=== PATIENT | female | born 1935 | race Caucasian/White ===

== ENCOUNTER → 2016-04-17 | Outpatient (CLI) | payer BC ==
[~2016-04-17] MED LIST: ACET1TAB84 PO; CALC500C70 PO; FERR1TAB23 PO; GARC1TAB PO; MULT-190 PO; MULT-506 PO; NXM/40 PO; TRAM-10 PO; TRAV0.00 OPB; ZNT/150 PO
--- NOTE | 2016-04-18 09:14 | DIAGNOSTIC IMAGING REPORT ---
RIGHT SHOULDER MIN 2 VIEWS CLINICAL HISTORY: B/L SHOULDER PAIN Right pain COMPARISON: None. DISCUSSION: Considerable degenerative change glenohumeral and to a lesser extent acromioclavicular joint. Metallic anchors lateral aspect humeral head on a postoperative basis. No evidence for acute fracture or dislocation. There is no evidence for soft tissue swelling. IMPRESSION: Considerable degenerative to lesser extent postoperative change. No acute process. Electronically signed by: Malachi Perez M.D. 04/18/2016 9:13 AM
--- NOTE | 2016-04-18 09:15 | DIAGNOSTIC IMAGING REPORT ---
LEFT SHOULDER MIN 2 VIEWS CLINICAL HISTORY: B/L SHOULDER PAIN pain COMPARISON: None. DISCUSSION: Considerable degenerative change glenohumeral joint. Sclerosis and deterioration of the articular services. Moderate degenerative change acromioclavicular joint. There is no evidence for soft tissue swelling. IMPRESSION: Considerable degenerative change left shoulder. No acute bony abnormality. Electronically signed by: Malachi Perez M.D. 04/18/2016 9:14 AM
== END | disposition home or self-care (01) ==
LOC: C.RDSM 16:12
PROVIDERS: ATTEND Family Medicine
DX: M79.603 Pain in arm, unspecified (principal)

== ENCOUNTER → 2016-06-17 | Outpatient (CLI) | payer BC | END | disposition home or self-care (01) | LOC: C.RDSM 14:23 | PROVIDERS: ATTEND Physical Medicine & Rehabilitation Sports Medicine | DX: M25.561 Pain in right knee (principal); M17.12 Unilateral primary osteoarthritis, left knee ==

== ENCOUNTER → 2016-07-31 | Outpatient (CLI) | payer BC | END | disposition home or self-care (01) | LOC: C.MAMM 08:08 | PROVIDERS: ATTEND Nurse Practitioner Family | DX: M81.0 Age-related osteoporosis without current pathological fracture (principal); Z85.3 Personal history of malignant neoplasm of breast; M85.832 Other specified disorders of bone density and structure, left forearm; M85.851 Other specified disorders of bone density and structure, right thigh; M85.852 Other specified disorders of bone density and structure, left thigh ==

== ENCOUNTER → 2016-08-12 | Outpatient (CLI) | payer BC | END | disposition home or self-care (01) | LOC: C.RDSM 09:45 | PROVIDERS: ATTEND Physical Medicine & Rehabilitation Sports Medicine | DX: M19.011 Primary osteoarthritis, right shoulder (principal) ==

== ENCOUNTER → 2016-08-23 | Outpatient (CLI) | payer BC ==
--- NOTE | 2016-08-23 16:42 | MAMMOGRAPHY REPORT ---
BILATERAL DIGITAL SCREENING MAMMOGRAM TOMOSYNTHESIS WITH CAD: 08/23/2016 CLINICAL HISTORY: Routine screening. Patient has no complaints. TECHNIQUE: Breast tomosynthesis in addition to standard 2D mammography was performed. Current study was also evaluated with a Computer Aided Detection (CAD) system. COMPARISON: Comparison is made to exams dated: 08/14/2015 mammogram, 08/08/2014 mammogram, 08/05/2013 m ammogram, 08/04/2012 mammogram, 01/15/2012 mammogram, and 04/10/2011 mammogram - [facility]. BREAST COMPOSITION: There are scattered areas of fibroglandular density in both breasts. FINDINGS: No suspicious masses, calcifications, or areas of architectural distortion are noted in e ither breast. There has been no significant interval change compared to prior exams. Postsurgical c hanges are again noted in the right upper outer quadrant from prior lumpectomy, including stable den sity, architectural distortion, and surgical clips at the lumpectomy bed. Benign coarse dystrophic and sutural calcifications are noted at the lumpectomy bed. A linear scar marker denotes a scar on the right breast. IMPRESSION: ACR BI-RADS CATEGORY 2: BENIGN There is no mammographic evidence of malignancy. A 1 year screening mammogram is recommended. The p atient will receive written notification of the results. Approximately 10% of breast cancers are not detected with mammography. A negative mammographic repor t should not delay biopsy if a clinically suggestive mass is present. Annie Umana M.D. /:08/23/2016 15:24:11 Clipper Operator: Kristine Alba RT(R)(Ángel)(ROBERTO), [facility] letter sent: Normal 1/2 BI-RADS Code: ACR BI-RADS Category 2: Benign
== END | disposition home or self-care (01) ==
LOC: C.MAMM 14:43
PROVIDERS: ATTEND Internal Medicine Hematology & Oncology
DX: Z12.31 Encounter for screening mammogram for malignant neoplasm of breast (principal)

== ENCOUNTER → 2016-09-25 | Outpatient (CLI) | payer BC ==
--- NOTE | 2016-09-25 11:06 | DIAGNOSTIC IMAGING REPORT ---
BILATERAL LOWER EXTREMITY VENOUS DOPPLER CLINICAL HISTORY: Bilateral lower extremity edema. COMPARISON STUDY: Bilateral lower extremity venous Doppler June 19, 2010. TECHNIQUE: Sonography of the deep venous system of the bilateral lower extremities was performed. Compression and augmentation were evaluated. FINDINGS: The common femoral, superficial femoral and popliteal veins were compressible. Augmentation was normal. Flow was shown within the deep calf vessels. Note was made of a 5.8 x 1.9 x 1.3 cm left popliteal cyst. IMPRESSION: 1. No evidence of deep venous thrombus within the bilateral lower extremities. 2. 5.8 x 1.9 x 1.3 cm left popliteal cyst. Electronically signed by: Calos Panda M.D. 09/25/2016 11:05 AM Dictated Date/Time: 09/25/2016 11:01 AM
[2016-09-25 13:47] LABS: BASO % 0.4 %; BASO ABS # 0.02 K/uL (0-0.2); COMPLETE YES; EOS % 1.5 %; HEMATOCRIT 36.4 % (37-47); IG% 0.2 %; LYMPH % 21.5 %; LYMPH ABS # 1.01 K/uL (1.2-3.4); MEAN CELL VOLUME 91.9 fL (80-100); MEAN CORPUSCULAR HEMOGLOBIN 27.5 pg (25-34); MEAN CORPUSCULAR HGB CONC 29.9 g/dl (32-36); MEAN PLATELET VOLUME 9.4 fL (7.4-10.4); MONO % 8.5 %; NEUT % 67.9 %; PLATELET COUNT 285 K/uL (130-400); RED BLOOD COUNT 3.96 M/uL (4.2-5.4); WHITE BLOOD COUNT 4.69 K/uL (4.8-10.8)
[2016-09-25 14:37] LABS: ALB/GLOB RATIO 1.2 (0.9-2); ALKALINE PHOSPHATASE 94 U/L (45-117); ALT/SGPT 27 U/L (12-78); AST/SGOT 15 U/L (15-37); BLOOD UREA NITROGEN 20 mg/dl (7-18); BUN/CREATININE RATIO 24.8 (10-20); CALCIUM 8.6 mg/dl (8.5-10.1); CARBON DIOXIDE 24 mmol/L (21-32); CHLORIDE 107 mmol/L (98-107); GLUCOSE 105 mg/dl (70-99); POTASSIUM 4.1 mmol/L (3.5-5.1); SODIUM 142 mmol/L (136-145)
[2016-09-25 16:39] LABS: URINE PROTIEN/CREAT RATIO 0.2 (0-0.2); URINE TOTAL PROTEIN 13.6 mg/dl (0-11.9)
== END | disposition home or self-care (01) ==
LOC: C.ULTRBC 09:42
PROVIDERS: ATTEND Internal Medicine Geriatric Medicine
DX: R60.0 Localized edema (principal); G62.9 Polyneuropathy, unspecified; K92.2 Gastrointestinal hemorrhage, unspecified; K63.9 Disease of intestine, unspecified; M71.22 Synovial cyst of popliteal space [Baker], left knee

== ENCOUNTER → 2016-10-03 | Outpatient (CLI) | payer BC ==
--- NOTE | 2016-10-03 08:50 | DIAGNOSTIC IMAGING REPORT ---
ABDOMINAL ULTRASOUND COMPLETE HISTORY: R60.0 Bilateral edema of lower [id number]. COMPARISON: Abdomen and pelvis CT 02/10/2014. FINDINGS: Pancreas: The pancreatic tail is obscured by overlying bowel gas. The remaining portions of the pancreas are within normal limits. Liver: The liver is echogenic consistent with fatty change. Gallbladder: No gallbladder wall thickening. No gallstones. There are 2 polyps within the gallbladder measuring 9 mm and 4 mm. CBD: 7 mm. This is within normal limits given the patient's age Kidneys: No hydronephrosis. Lower poles are slightly 0 by overlying bowel gas. Bilateral renal cysts with the largest in the lower pole the left kidney measuring 3.2 cm. Spleen: Normal in size. Aorta: Proximal aorta is normal in caliber. The mid to distal aorta obscured by overlying bowel gas.. IVC: Patent. IMPRESSION: 1. No gallbladder wall thickening. No gallstones. There are 2 polyps within the gallbladder with the largest measuring 9 mm. 2. Bilateral renal cysts. 3. Mild hepatic steatosis. Electronically signed by: Steve Orlando M.D. 10/03/2016 8:49 AM Dictated Date/Time: 10/03/2016 8:45 AM
== END | disposition home or self-care (01) ==
LOC: C.ULTRBC 08:08
PROVIDERS: ATTEND Internal Medicine Geriatric Medicine
DX: R60.0 Localized edema (principal)

== ENCOUNTER → 2016-10-04 | Outpatient (CLI) | payer BC ==
[2016-10-04 14:10] LABS: BLOOD UREA NITROGEN 23 mg/dl (7-18); BUN/CREATININE RATIO 31.9 (10-20); CALCIUM 9.9 mg/dl (8.5-10.1); CARBON DIOXIDE 29 mmol/L (21-32); CHLORIDE 106 mmol/L (98-107); CREATININE 0.73 mg/dl (0.60-1.20); GLUCOSE 96 mg/dl (70-99); SODIUM 142 mmol/L (136-145)
== END | disposition home or self-care (01) ==
LOC: C.LABBC 10:36
PROVIDERS: ATTEND Internal Medicine Geriatric Medicine
DX: R60.0 Localized edema (principal)

== ENCOUNTER → 2016-11-19 | Outpatient (CLI) | payer BC ==
[2016-11-19 17:13] LABS: BASO % 0.3 %; BASO ABS # 0.02 K/uL (0-0.2); COMPLETE YES; HEMATOCRIT 39.3 % (37-47); IG% 0.2 %; LYMPH % 24.7 %; LYMPH ABS # 1.41 K/uL (1.2-3.4); MEAN CELL VOLUME 92.9 fL (80-100); MEAN CORPUSCULAR HEMOGLOBIN 29.6 pg (25-34); MEAN CORPUSCULAR HGB CONC 31.8 g/dl (32-36); MEAN PLATELET VOLUME 9.7 fL (7.4-10.4); MONO % 6.3 %; NEUT % 67.5 %; PLATELET COUNT 276 K/uL (130-400); RED BLOOD COUNT 4.23 M/uL (4.2-5.4); WHITE BLOOD COUNT 5.72 K/uL (4.8-10.8)
== END | disposition home or self-care (01) ==
LOC: C.LABBC 14:48
PROVIDERS: ATTEND Internal Medicine Geriatric Medicine
DX: D64.9 Anemia, unspecified (principal)

== ENCOUNTER → 2017-05-15 | Outpatient (CLI) | payer BC ==
[2017-05-15 17:32] LABS: BASO % 0.3 %; BASO ABS # 0.02 K/uL (0-0.2); EOS % 0.9 %; EOS ABS # 0.05 K/uL (0-0.5); HEMOGLOBIN 13.1 g/dL (12.0-16.0); IG# 0.02 K/uL (0.00-0.02); LYMPH % 23.6 %; LYMPH ABS # 1.35 K/uL (1.2-3.4); MEAN CELL VOLUME 91.1 fL (80-100); MEAN CORPUSCULAR HEMOGLOBIN 29.8 pg (25-34); MEAN CORPUSCULAR HGB CONC 32.8 g/dl (32-36); MEAN PLATELET VOLUME 9.6 fL (7.4-10.4); MONO % 5.9 %; MONO ABS # 0.34 K/uL (0.11-0.59); NEUT ABS # 3.94 K/uL (1.4-6.5); PLATELET COUNT 287 K/uL (130-400); RED CELL DISTRIBUTION WIDTH CV 13.7 % (11.5-14.5); RED CELL DISTRIBUTION WIDTH SD 45.4 fL (36.4-46.3); WHITE BLOOD COUNT 5.72 K/uL (4.8-10.8)
[2017-05-15 17:38] LABS: ALBUMIN 3.6 gm/dl (3.4-5.0); ALT/SGPT 28 U/L (12-78); AST/SGOT 13 U/L (15-37); BLOOD UREA NITROGEN 20 mg/dl (7-18); CALCIUM 8.8 mg/dl (8.5-10.1); CARBON DIOXIDE 25 mmol/L (21-32); CREATININE 0.72 mg/dl (0.60-1.20); GLUCOSE 125 mg/dl (70-99); POTASSIUM 3.8 mmol/L (3.5-5.1); SODIUM 139 mmol/L (136-145)
[2017-05-15 17:49] LABS: ALKALINE PHOSPHATASE 117 U/L (45-117); TOTAL PROTEIN 6.6 gm/dl (6.4-8.2)
== END | disposition home or self-care (01) ==
LOC: C.LABBC 14:54
PROVIDERS: ATTEND Internal Medicine Geriatric Medicine
DX: M81.0 Age-related osteoporosis without current pathological fracture (principal); K22.70 Barrett's esophagus without dysplasia; D64.9 Anemia, unspecified; R73.9 Hyperglycemia, unspecified; G62.9 Polyneuropathy, unspecified; I87.2 Venous insufficiency (chronic) (peripheral); K76.0 Fatty (change of) liver, not elsewhere classified

== ENCOUNTER → 2017-08-04 | Outpatient (CLI) | payer BC | END | disposition home or self-care (01) | LOC: C.RDSM 15:02 | PROVIDERS: ATTEND Physical Medicine & Rehabilitation Sports Medicine | DX: M17.12 Unilateral primary osteoarthritis, left knee (principal); Z96.651 Presence of right artificial knee joint ==

== ENCOUNTER → 2017-08-25 | Outpatient (CLI) | payer BC ==
--- NOTE | 2017-08-26 15:04 | MAMMOGRAPHY REPORT ---
BILATERAL DIGITAL SCREENING MAMMOGRAM TOMOSYNTHESIS WITH CAD: 08/25/2017 CLINICAL HISTORY: Routine screening. Patient has no complaints. TECHNIQUE: Breast tomosynthesis in addition to standard 2D mammography was performed. Current study was also evaluated with a Computer Aided Detection (CAD) system. COMPARISON: Comparison is made to exams dated: 08/23/2016 mammogram, 08/14/2015 mammogram, 08/08/2014 ma mmogram, 08/05/2013 mammogram, 08/04/2012 mammogram, and 01/15/2012 mammogram - [facility]. BREAST COMPOSITION: There are scattered areas of fibroglandular density in both breasts. FINDINGS: There is expected architectural distortion in the upper outer middle to posterior right giorgio ast, with associated surgical clips and sutural calcification at the site of prior lumpectomy. A nayana ear scar marker overlies the right upper outer breast. There are mild vascular calcifications bilate rally. No new suspicious mass, architectural distortion or cluster of microcalcifications is seen. IMPRESSION: ACR BI-RADS CATEGORY 1: NEGATIVE There is no mammographic evidence of malignancy. A 1 year screening mammogram is recommended. The pa tient will receive written notification of the results. Approximately 10% of breast cancers are not detected with mammography. A negative mammographic report should not delay biopsy if a clinically suggestive mass is present. Catherine Alvarez M.D. ay/:08/25/2017 16:47:57 Shipping Receiving Clerk: Kristine JAMES(Rupert)(Ángel)(BD), [facility] letter sent: Normal 1/2 BI-RADS Code: ACR BI-RADS Category 1: Negative
== END | disposition home or self-care (01) ==
LOC: C.MAMM 14:50
PROVIDERS: ATTEND Internal Medicine Hematology & Oncology
DX: Z12.31 Encounter for screening mammogram for malignant neoplasm of breast (principal)

== ENCOUNTER 2018-06-02 05:09 | Inpatient (IN) ==
--- NOTE | 2018-05-08 16:14 | PAT Medication Instructions ---
Medication Instructions Date of Service May 08, 2018 Home Medications acetaminophen [Acetaminophen] 500 mg PO TID [Simbrinza] 1 drp OPHTHALMIC (EYE) BID calcium carbonate-vitamin D3 2 tab PO BID cholecalciferol (vitamin D3) 1,000 unit PO QPM denosumab [Prolia] 1 dose SUBCUT Q6M esomeprazole magnesium 40 mg PO QAM furosemide 40 mg PO QDL [Centrum Silver] 1 tab PO QPM peg 400-propylene glycol [Systane] 1 drp OPHTHALMIC (EYE) BID ranitidine HCl 300 mg PO HS travoprost [Travatan Z] 1 drp OPHTHALMIC (EYE) PM [PreserVision AREDS-2] 1 tab PO HS Continue as directed denosumab [Prolia] 1 dose SUBCUT Q6M DO NOT take the morning of surgery calcium carbonate-vitamin D3 2 tab PO BID furosemide 40 mg PO QDL Take morning of surgery With a small sip of water, OTHERWISE NOTHING TO EAT OR DRINK AFTER MIDNIGHT: acetaminophen [Acetaminophen] 500 mg PO TID (if needed, may be taken up to four hours before surgery) [Simbrinza] 1 drp OPHTHALMIC (EYE) BID esomeprazole magnesium 40 mg PO QAM peg 400-propylene glycol [Systane] 1 drp OPHTHALMIC (EYE) BID Take evening before surgery acetaminophen [Acetaminophen] 500 mg PO TID [Simbrinza] 1 drp OPHTHALMIC (EYE) BID calcium carbonate-vitamin D3 2 tab PO BID cholecalciferol (vitamin D3) 1,000 unit PO QPM [Centrum Silver] 1 tab PO QPM peg 400-propylene glycol [Systane] 1 drp OPHTHALMIC (EYE) BID ranitidine HCl 300 mg PO HS travoprost [Travatan Z] 1 drp OPHTHALMIC (EYE) PM [PreserVision AREDS-2] 1 tab PO HS Other Notes If you have any questions please call us at [phone] or [phone] or [phone] or [phone]
--- NOTE | 2018-05-11 13:05 | Anesthesiology Consultation ---
Date of Service May 11, 2018 Assessment & Plan (1) Encounter for pre-operative examination: Plan: PCP clearance 04/09/2018: "Medically stable." Chart Review Chart Review: Acceptable Risk for Surgery and Patient seen in Pre Admission Testing Teaching & Discussion Instructed NPO after midnight before surgery, except medications with 15 cc of water. Medication instructions provided according to the PAT guidelines. History Surgery Operation Date: 06/02/18 07:00 Proposed Procedures p Right Total Shoulder Arthroplasty versus Cuff Tear Arthropathy - Lex Quintanilla MD Height/Weight Height: 5 ft 2 in Weight: 76.8 kg Allergies Allergy/AdvReac Type Severity Reaction Status Date / Time hydrocodone Allergy Mild RASH Verified 02/20/15 11:45 oxycodone Allergy Mild Itchy Verified 04/22/14 15:38 celecoxib Allergy Unknown GI Bleed Verified 05/05/18 12:27 aspirin AdvReac Intermediate GI BLEED Verified 02/20/15 08:40 NSAIDS (Non-Steroidal AdvReac Intermediate GI BLEED Verified 02/17/14 08:40 Anti-Inflamma Medications Home Medications Medication Instructions Recorded Confirmed Last Taken acetaminophen [Acetaminophen Extra 500 mg PO TID 05/05/18 05/05/18 Unknown Strength] brinzolamide-brimonidine 1 drp OPHTHALMIC (EYE) BID 05/05/18 05/05/18 Unknown [Simbrinza] calcium carbonate-vitamin D3 2 tab PO BID 05/05/18 05/05/18 Unknown [Calcium 500 + D] cholecalciferol (vitamin D3) 1,000 unit PO QPM 05/05/18 05/05/18 Unknown [Vitamin D3] denosumab [Prolia] 1 dose SUBCUT Q6M 05/05/18 05/05/18 Unknown esomeprazole magnesium 40 mg PO QAM 05/05/18 05/05/18 Unknown furosemide 40 mg PO QDL 05/05/18 05/05/18 Unknown aynfxoqn-inu-EU-lycopen-lutein 1 tab PO QPM 05/05/18 05/05/18 Unknown [Centrum Silver] peg 400-propylene glycol [Systane 1 drp OPHTHALMIC (EYE) BID 05/05/18 05/05/18 Unknown Ultra] ranitidine HCl 300 mg PO HS 05/05/18 05/05/18 Unknown travoprost [Travatan Z] 1 drp OPHTHALMIC (EYE) PM 05/05/18 05/05/18 Unknown vit C,A-Aw-htibb-lutein-zeaxan 1 tab PO HS 05/05/18 05/05/18 Unknown [PreserVision AREDS-2] Past Medical History Medical History Barretts esophagus Blood clot of left ear In her 20's. 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 Fluid retention GERD (gastroesophageal reflux disease) Glaucoma History of GI bleed Remote hx, possibly d/t nsaids History of anemia History of gastric polyp removed Hx of breast cancer right - 2010, s/p partial mastectomy Osteoarthritis Osteoporosis Peripheral neuropathy burning on top of both feet Venous insufficiency Past Surgical History Surgical History H/O repair of right rotator cuff History of esophagogastroduodenoscopy (EGD) History of knee replacement procedure of right knee Post op developed pseudomonis - HAd to redo knee Hx of bilateral cataract extraction Hx of colonoscopy Hx of partial mastectomy right Hx of tonsillectomy Past Anesthesia History No Hx of Anesthesia Complications and No Family Hx of Anesthesia Complications History of PONV No Motion Sickness Screening History of Motion Sickness: No Social History Smoking Status: Never smoker Do You Dip or Chew Tobacco: No Hx Alcohol Use: Yes Alcohol type: wine alcohol intake frequency: a few times a month Hx Substance Use: No Exercise / Class Metabolic Activity II 4-5 Yardwork/Stairs/Walk up hill (Goes slowly 2/2 knee pain, but does do stairs daily without CP or SOB) Review of Systems Pt denies any recent chest pain, shortness of breath, palpitations, fever or URI. Mild chronic cough 2/2 post nasal drip Physical Exam Vital Signs BP: 135/87 (pt reports much lower at home, she was late to her appt today and anxious as a result) P: 74bpm SPO2: 98% RA T: 97.9 F R: 16 ENMT Mouth: + dental bridge and + dental restorations (few implants); no chipped teeth and no loose teeth Thyromental Distance: > or= 3.5 Finger Breadths (4+) Mallampati Class: III Neck normal visual inspection; neck extension not limited Respiratory normal respiratory effort Auscultation: lungs clear to auscultation bilaterally Cardiovascular Rate/Rhythm: regular rate and regular rhythm Heart Sounds: + murmur (I/ systolic) Vessels: no carotid bruit Extremities: + edema (B/L 1+ non-pitting, pt states at baseline) Testing Electrocardiogram Date: 05/11/18 Findings: + NSR @ (70) Chest X-Ray Date: 04/09/18 Findings: + NAD Large hiatal hernia. Moderate cardiomegaly. Echocardiogram Date: 04/22/18 EF: 60-65% LV wall motion, ventricular size and systolic function are normal. There is moderate cLVH. Grade I diastolic dysfunction. No RWMA. The LA is severely dilated. Sclerotic AV without significant stenosis. There is moderate mitral annular calcification with mild MR. Normal estimated RVSP. Laboratory Results 05/11/18 13:16 05/11/18 13:16 Blood Type A Positive 05/11/18 13:16 Antibody Screen NEGATIVE 05/11/18 13:16 PT 10.0 Seconds (9.0-12.0) 05/11/18 13:16 INR 1.0 (0.9-1.1) 05/11/18 13:16 APTT 24.5 Seconds (21.0-31.0) 05/11/18 13:16 Urine Color Yellow 05/11/18 Unknown Urine Appearance Clear (Clear) 05/11/18 Unknown Urine pH 7.5 (4.5-7.5) 05/11/18 Unknown Ur Specific Waves 1.026 (1.000-1.030) 05/11/18 Unknown Urine Protein Negative (Negative) 05/11/18 Unknown Urine Glucose (UA) Negative (Negative) 05/11/18 Unknown Urine Ketones Negative (Negative) 05/11/18 Unknown Urine Nitrite Negative (Negative) 05/11/18 Unknown Ur Leukocyte Esterase Negative (Negative) 05/11/18 Unknown 05/11/18 Unknown Urine Culture - Final Urine,Clean Catch Three types of organisms present, all moderate counts. Repeat collection recommended. No further identifications or sensitivities to follow.
[2018-05-11 14:02] LABS: Basophils # (auto) 0.01 K/uL (0-0.2); Basophils % (auto) 0.2 %; Eosinophils # (auto) 0.05 K/uL (0-0.5); Eosinophils % (auto) 1.1 %; Hematocrit (blood only) 38.6 % (37-47); Hemoglobin 12.1 g/dL (12.0-16.0); Immature Granulocytes # (auto) 0.01 K/uL (0.00-0.02); Immature Granulocytes % (auto) 0.2 %; Lymphocytes # (auto) 1.07 K/uL (1.2-3.4); Lymphocytes % (auto) 23.4 %; Mean Corpuscular Hgb Conc 31.3 g/dL (32-36); Mean Corpuscular Volume 90.6 fL (80-100); Mean Platelet Volume 9.5 fL (7.4-10.4); Monocytes # (auto) 0.42 K/uL (0.11-0.59); Monocytes % (auto) 9.2 %; Neutrophils # (auto) 3.01 K/uL (1.4-6.5); Neutrophils % (auto) 65.9 %; Platelet Count 247 K/uL (130-400); RDW Standard Deviation 46.4 fL (36.4-46.3); Red Blood Count 4.26 M/uL (4.2-5.4); White Blood Count 4.57 K/uL (4.8-10.8)
[2018-05-11 14:04] LABS: Appearance Urine Clear (Clear); Bilirubin Urine Negative (Negative); Color Urine Yellow; Glucose Urine UA Negative (Negative); Ketones Urine Negative (Negative); Leukocyte Esterase Urine Negative (Negative); Nitrite Urine Negative (Negative); Protein Urine Negative (Negative); Specific Gravity Urine 1.026 (1.000-1.030); Urobilinogen Urine Negative (Negative); pH Urine 7.5 (4.5-7.5)
[2018-05-11 14:12] LABS: Partial Thromboplastin Ratio 0.9; Partial Thromboplastin Time 24.5 Seconds (21.0-31.0)
[2018-05-11 14:47] LABS: Calcium 8.9 mg/dl (8.5-10.1); Creatinine Clr Calc Pharmacy 71.8 ml/min; Est GFR (African American) 99.4; Est GFR (Non-African American) 85.7; Potassium 3.9 mmol/L (3.5-5.1)
[2018-06-02] MEDS ORDERED: CEFAZOLIN 2000MG 2,000 MG/15 ML SYR IV SCH (06:00)
[2018-06-02] MEDS ORDERED: LR 15ML/HR IV SCH (06:00)
[2018-06-02] MEDS: LR 500ML BOLUS, THEN 15ML/HR IV SCH ×3 (06:06→19:12)
--- NOTE | 2018-06-02 06:25 | History & Physical Bridge Note ---
Date of Service June 02, 2018 History & Physical Bridge Note I have examined the patient, reviewed the History & Physical and in the interval since the performance of the History & Physical I have noted the following changes of clinical significance:consent obtained. no changes noted
[2018-06-02] MEDS ORDERED: ROPIVACAINE 0.5% 5 MG/ML 30 ML VIAL ONE (06:27)
[2018-06-02] MEDS ORDERED: BACITRACIN INJ 50,000 UNIT VIAL ONE (06:28)
[2018-06-02] MEDS ORDERED: THROMBIN FOR SOLN 20000 UNIT KIT ONE (06:28)
[2018-06-02] MEDS ORDERED: MIDAZOLAM HCL 1 MG/ML 2ML VIAL ONE (06:37)
[2018-06-02] MEDS ORDERED: fentaNYL citrate 100 MCG/2 ML VIAL ONE (06:37)
[2018-06-02] MEDS ORDERED: PROPOFOL IV EMULSION 10 MG/ML 20 ML VIAL IV ONE (07:16)
[2018-06-02] MEDS ORDERED: LIDOCAINE HCL 2% 2 ML VIAL/AMP(20MG/ML) INFIL ONE (07:16)
[2018-06-02] MEDS ORDERED: ePHEDrine sulfate 50 MG/ML SYR ONE (07:17)
[2018-06-02] MEDS ORDERED: DEXAMETHASONE SOD INJ 4 MG/ML VIAL ONE (07:17)
[2018-06-02] MEDS ORDERED: ROCURONIUM BROMIDE 10 MG/ML 5 ML VIAL ONE (07:17)
[2018-06-02] MEDS ORDERED: NEOSTIGMINE METHYLSULFATE 5 MG/5 ML SYR ONE (07:38)
[2018-06-02] MEDS ORDERED: GLYCOPYRROLATE 0.2 MG/ML VIAL ONE (07:38)
[2018-06-02] MEDS ORDERED: ATROPINE SULFATE 0.1 MG/ML 10ML SYR IV PRN (08:55)
[2018-06-02] MEDS ORDERED: NALOXONE HCL 0.4 MG/1 ML VIAL/CARP IV PRN ×2 (08:55→10:09)
[2018-06-02] MEDS ORDERED: LABETALOL HCL IV 5 MG/ML 20ML IV PRN (08:55)
[2018-06-02] MEDS ORDERED: ONDANSETRON INJ 2 MG/ML 2 ML VIAL IV PRN ×2 (08:55→10:09)
[2018-06-02] MEDS ORDERED: PROMETHAZINE HCL 12.5 MG in SODIUM CHLORIDE 0.9% 50 ML IV PRN (08:55)
[2018-06-02] MEDS ORDERED: FLUMAZENIL 0.1 MG/1 ML 10 ML VIAL IV PRN (08:55)
[2018-06-02] MEDS ORDERED: HYDROmorphone INJ 1 MG/ML SYRINGE IV PRN (08:55)
[2018-06-02] MEDS ORDERED: ePHEDrine sulfate 50 MG/ML AMP IV PRN (08:55)
--- NOTE | 2018-06-02 08:58 | Post Operative Brief Note ---
Immediate Post Op Note v1 Date of Surgery June 02, 2018 Pre & Post Diagnosis Operation Date: 06/02/18 07:00 Pre-Op Diagnosis: Right Shoulder Degenerative Joint Disease Post-Op Diagnosis: Right Shoulder Degenerative Joint Disease Procedure Operation Date: 06/02/18 07:00 Actual Procedures p Right Total Shoulder Arthroplasty (Cemented)(Right) - Lex Quintanilla MD Surgeon Lex Quintanilla MD Clinical Outcomes [facility] Estimated Blood Loss 150 Findings Consistent with Post-Op Diagnosis
--- NOTE | 2018-06-02 09:18 | Operative Report ---
Post Operative Report Pre & Post Diagnosis Operation Date: 06/02/18 07:00 Pre-Op Diagnosis: Right Shoulder Degenerative Joint Disease Post-Op Diagnosis: Right Shoulder Degenerative Joint Disease Procedure Operation Date: 06/02/18 07:00 Actual Procedures p Right Total Shoulder Arthroplasty (Cemented)(Right) - Lex Quintanilla MD Surgeon EVELIN Quintanilla MD Or[employer] Stitcher adriana Estimated Blood Loss 150 Findings Consistent with Post-Op Diagnosis Specimens see operative report Drains none Complications none Disposition Accompanied Patient To Recovery: Yes Disposition: Recovery Room Indications This 82-year-old white female presented to the first with complaints of intractable right shoulder pain. She had tried conservative care measures without improvement. She elected to proceed with surgical intervention after being educated about potential risks and outcomes. Preoperative imaging was obtained. Medical clearance was obtained. Description of Procedure Patient was administered a regional block and then taken to the operating room where she was given general anesthesia. She was prepped and draped in the usual sterile fashion. Please see Dr. Quintanilla's operative report for specifics of the procedure. I was present for the entire case from initial patient positioning through final wound closure. Assistance was provided in tissue retraction, hemostasis, trial implant placement, final implant placement , and final wound closure. Patient was taken to the recovery room in satisfactory condition. I attest to the content of the Intraoperative Record and any orders documented therein. Any exceptions are noted below.
--- NOTE | 2018-06-02 09:47 | Anesthesiology Progress Note ---
Date of Service June 02, 2018 Anesthesia Post Procedure Vital Signs Vital Signs: Temp Pulse Pulse Resp BP Pulse Ox 06/02/18 09:35 76 20 129/68 93 06/02/18 09:25 73 26 H 129/69 93 06/02/18 09:15 76 26 H 131/71 91 06/02/18 09:05 36.2 C L 88 20 128/81 93 06/02/18 06:08 36.5 C 74 20 177/91 H 96 Pain Intensity Right Scrotal: Pain Intensity: 3 Notes Mental Status: alert / awake / arousable Patient Amnestic to Procedure: Yes Nausea / Vomiting: adequately controlled Pain: adequately controlled Airway Patency, RR, SpO2: stable & adequate BP & HR: stable & adequate Hydration State: stable & adequate Anesthetic Complications: no major complications apparent
--- NOTE | 2018-06-02 09:54 | Operative Report ---
DATE OF OPERATION: 06/02/2018 SURGEON: Dr. Quintanilla. DISTRIBUTION OPERATIONS MANAGER: Dr. Trujillo. No resident or fellow available. PREOPERATIVE DIAGNOSIS: Osteoarthritis, right shoulder. POSTOPERATIVE DIAGNOSIS: Osteoarthritis, right shoulder. OPERATION PERFORMED: Hybrid total shoulder replacement with cemented glenoid and porous coated humeral stem. PERIOPERATIVE SITUATION: Medically cleared female with intractable shoulder pain who has had a history remotely of rotator cuff repair with 2 metal suture anchors in there. It was discussed that they may be left in or removed. Risks and benefits described. She was also noted to me I get a CTA head rather than a total shoulder based on the condition of rotator cuff. DESCRIPTION OF PROCEDURE: The patient was appropriately identified, site verified, consent verified. Antibiotics confirmed as being given. The right shoulder was examined revealing external rotation with the arm at 90 degrees to about 20 degrees, forward flexion about 70 degrees, abduction about the same. She was then placed in a semi-beach chair position. Right upper extremity prepped and draped in the usual routine fashion. A deltopectoral incision was then made, full thickness flaps raised. The saphenous vein was released and coagulated proximally and retracted. It was very scarred and incorporated into the old incisions. The retractors were then placed. Conjoined tendon was then identified and this clavipectoral fascia incised and everything retracted. Subscapularis was then tagged and released off the bone. The biceps was tenotomized. The shoulder was then dislocated. The humeral head was resected and then repeated. There was good exposure of the glenoid. The remaining labrum was removed. The rotator cuff appeared to be intact enough to do a total shoulder, so the centering pin was placed, centering hole made. Appropriate reaming and burring carried out and then a 44 glenoid positioned well and cemented into position. After 14 minutes, the wound was irrigated. It should be mentioned that thrombin was placed in the glenoid keeled bed prior to cementing. Once the glenoid was cured and everything was secured and looked good, the humeral head was delivered in the wound and serial broaching carried up to a size 8 and a size 8 stem with a 15 head fit best. It was 44 x 15. Two drill holes were then made, 2 sutures #2 FiberWire placed through. On the lesser tuberosity region, additional Vicryl suture was placed in the supraspinatus at the rotator interval. The stem was then placed. The sutures pulled around it and then the humerus impacted into position. All slack removed from the subscapularis stitches. The subscapularis was then placed and repaired using the sutures and the additional Vicryl stitch. The biceps was left alone. It did not retract at all. The wound was irrigated and closed with #1 Vicryl, 2-0 Vicryl and stainless steel clips. Estimated blood loss was 150 mL. No DVT prophylaxis. Bone pathology pending. SUMMARY OF IMPLANTS: Size 44 keeled glenoid, 8 Porocoat stem 44 x 15 head. It should be mentioned that prior to selecting the final implants between 15 and 18 head, the shoulder was examined and we selected the 15 based on numeral positioning and subluxate ability posteriorly. I attest to the content of the Intraoperative Record and any orders documented therein. Any exceptions are noted below. CORTNEYD
--- NOTE | 2018-06-02 09:59 | XRay Report ---
XR shoulder RT min 2V routine CLINICAL HISTORY: Post shoulder surgery COMPARISON: 05/11/2018 DISCUSSION: There are postsurgical changes of a total right shoulder arthroplasty. Overlying skin sta ples are evident. No small bowel gas in the soft tissues consistent with recent surgery. There are no acute fractures. There is no dislocation. The heart appears enlarged. There is aortic tortuosity/ect shikha. There is possible mild pulmonary vascular congestion. There is a suspected trace right pleural effusion IMPRESSION: Postsurgical changes of a total right shoulder arthroplasty Electronically signed by: Kamari Chua M.D. 06/02/2018 9:58 AM
[2018-06-02] MEDS ORDERED: MAGNESIUM HYDROXIDE SUSP 30 ML UDC PO PRN (10:09)
[2018-06-02] MEDS ORDERED: METOCLOPRAMIDE HCL INJ 5 MG/ML 2 ML VIAL IV PRN (10:09)
[2018-06-02] MEDS ORDERED: SODIUM CHLORIDE 0.9% 1000ML 1,000 ML IV SCH (10:09)
[2018-06-02] MEDS ORDERED: HYDROmorphone INJ 0.5 MG/0.5 ML SYR IV PRN (10:09)
[2018-06-02] MEDS ORDERED: DiphenhydrAMINE HCL 50 MG/ML VIAL IV PRN (10:09)
[2018-06-02] MEDS ORDERED: ALUMINUM/MAGNESIUM SUSP 30 ML UDC PO PRN (10:09)
[2018-06-02] MEDS ORDERED: BISACODYL 10 MG SUPP PR PRN (10:09)
[2018-06-02] MEDS ORDERED: FUROSEMIDE 40 MG TAB PO SCH (11:30)
[2018-06-02] MEDS: ACETAMINOPHEN 500 MG TAB PO SCH ×2 (14:39→21:09)
[2018-06-02] MEDS ORDERED: COUGH DROP (SUGAR FREE) LOZ 24 LOZ/1 BOX BUCCAL PRN (14:56)
[2018-06-02] MEDS: CEFAZOLIN 2000MG 2,000 MG/15 ML SYR IV SCH ×2 (15:56→23:30)
--- NOTE | 2018-06-02 19:23 | Progress Note ---
DATE: 06/02/2018 Postop check status post right total shoulder replacement. The patient is sitting up in the chair comfortably. She denies chest pain, shortness of breath, fever, chills, nausea, vomiting or headache. Vital signs are stable. She is afebrile. Neurovascular check is limited by block but has good motor function in the hand and wrist and has trace elbow function and trace shoulder function. Sensory; grossly axillary nerve sensory pattern is good. Postop x-rays look excellent. ASSESSMENT: Doing well. Continue with postoperative care pathway. She is eating and drinking. We will discontinue IV fluid and mobilize. Keep arm in a sling, shoulder immobilizer. Follow up in the morning with potential discharge and outpatient therapy to start tomorrow. 30 degrees of abduction, 30 degrees of forward flexion and belly to 0 degrees of external rotation.
[2018-06-02] MEDS ORDERED: ARTIFICIAL TEARS OP SCH (21:00)
[2018-06-02] MEDS ORDERED: SENNA 8.6 MG TAB PO SCH (21:00)
[2018-06-02] MEDS ORDERED: TRAVOPROST Z 0.004% OPH SOLN 2.5 ML BTL OP SCH (21:00)
[2018-06-02] MEDS: DOCUSATE SODIUM 100 MG CAP PO SCH (21:06)
[2018-06-02] MEDS: ARTIFICIAL TEARS OP SCH (21:13)
[2018-06-02] MEDS: OXYCODONE HCL IR 5 MG TAB (IMMEDIATE RELEASE) PO PRN (23:34)
[2018-06-03] MEDS: ACETAMINOPHEN 500 MG TAB PO SCH (05:01)
[2018-06-03 06:09] LABS: Basophils # (auto) 0.01 K/uL (0-0.2); Basophils % (auto) 0.1 %; Eosinophils # (auto) 0.04 K/uL (0-0.5); Eosinophils % (auto) 0.5 %; Hematocrit (blood only) 32.9 % (37-47); Hemoglobin 10.5 g/dL (12.0-16.0); Immature Granulocytes # (auto) 0.01 K/uL (0.00-0.02); Immature Granulocytes % (auto) 0.1 %; Lymphocytes # (auto) 1.06 K/uL (1.2-3.4); Lymphocytes % (auto) 12.3 %; Mean Corpuscular Hgb Conc 31.9 g/dL (32-36); Mean Corpuscular Volume 89.6 fL (80-100); Mean Platelet Volume 9.4 fL (7.4-10.4); Monocytes # (auto) 1.07 K/uL (0.11-0.59); Monocytes % (auto) 12.4 %; Neutrophils # (auto) 6.46 K/uL (1.4-6.5); Neutrophils % (auto) 74.6 %; Platelet Count 198 K/uL (130-400); RDW Coefficient of Variation 14.7 % (11.5-14.5); RDW Standard Deviation 48.5 fL (36.4-46.3); Red Blood Count 3.67 M/uL (4.2-5.4); White Blood Count 8.65 K/uL (4.8-10.8)
[2018-06-03 06:36] LABS: BUN Creatinine Ratio 24.8 (10-20); Calcium 7.8 mg/dl (8.5-10.1); Creatinine Clr Calc Pharmacy 58.3 ml/min; Est GFR (African American) 93.3; Est GFR (Non-African American) 80.5; Potassium 3.4 mmol/L (3.5-5.1)
--- NOTE | 2018-06-03 07:46 | Discharge Summary ---
CHIEF COMPLAINT: Right shoulder pain. HISTORY OF PRESENT ILLNESS: The patient underwent elective right total shoulder replacement. Hospital course has been uneventful. PAST MEDICAL HISTORY: Remarkable for breast cancer; gastric ulcer; hiatal hernia; GERD; history of right leg DVT; osteoarthritis; history of osteoporosis; TIA; history of radiation therapy; multiple knee surgeries, revision on the right; tonsillectomy; partial mastectomy; right shoulder arthroscopy 2002. SOCIAL HISTORY: Reveals she is , retired. No tobacco or alcohol use. ALLERGIES: None. PREADMISSION MEDICATIONS: Prophylactic dental work; amoxicillin; Arimidex; calcium; vitamin D; Nexium; PreserVision; Prolia; ranitidine; Simbrinza; Systane; tramadol p.r.n.; pravastatin; Tylenol p.r.n.; vitamin D, we will continue that; add p.r.n. pain medication, see prescription. FAMILY HISTORY: Noncontributory. REVIEW OF SYSTEMS: Reveals no chest pain, shortness of breath, fever, chills, nausea, vomiting, or headache. Hospital course has been uneventful. At this point in time, I will prepare for discharge. Wound dressing clean, dry, and intact. [facility] baseline. ASSESSMENT: Doing well status post right total shoulder replacement. We will discharge today. RUTH
--- NOTE | 2018-06-03 07:49 | Progress Note ---
DATE: 06/03/2018 SUBJECTIVE: Postop check status post right total shoulder replacement. The patient had a relatively uneventful night. Pain is managed. She denies chest pain, shortness of breath, fever, chills, nausea, vomiting, or headache. OBJECTIVE: Vital signs are stable. She is afebrile. T-max is 37.3. Hematocrit stable. Wound dressing clean, dry, and intact. Abdomen is soft, nontender. Calves are soft, nontender. Neurovascular check with her baseline. ASSESSMENT: Doing well status post right total shoulder replacement. PLAN: Discharge to home today. Outpatient PT and dressing change.
[2018-06-03] MEDS ORDERED: dexAMETHasone 10 MG in SYRINGE 0 ML IV SCH (08:00)
[2018-06-03] MEDS: ARTIFICIAL TEARS OP SCH ×2 (08:27→09:32)
[2018-06-03] MEDS: OXYCODONE HCL IR 5 MG TAB (IMMEDIATE RELEASE) PO PRN (08:36)
[2018-06-03] MEDS: DOCUSATE SODIUM 100 MG CAP PO SCH (08:37)
[2018-06-03] MEDS ORDERED: PANTOprazole 40 MG TAB PO SCH (09:00)
[2018-06-03] MEDS ORDERED: MULTIVITAMIN TAB PO SCH (09:00)
== END 2018-06-03 09:59 | disposition home or self-care (01) | DRG 483 ==
LOC: ASU 05:09 → 3E 09:51

== ENCOUNTER 2019-01-13 05:03 | Observation (INO) ==
--- NOTE | 2018-12-27 21:00 | PAT Medication Instructions ---
Medication Instructions Date of Service December 27, 2018 Home Medications Medication Instructions Recorded ranitidine 300 mg tablet 300 mg PO HS 90 Days #90 tab 12/24/18 Centrum Silver 1 tab PO QAM PreserVision AREDS-2 1 tab PO BID Prolia 1 dose SUBCUT Q6M Simbrinza 1 drp OPHTHALMIC (EYE) BID Systane Ultra 1 drp OPHTHALMIC (EYE) UD PRN Travatan Z 1 drp OPHTHALMIC (EYE) PM cholecalciferol (vitamin D3) [Vitamin D3] 1,000 unit PO QPM calcium carbonate 500 mg (1,250 mg)-vitamin D3 200 unit tablet 2 tab PO DAILY fluticasone propionate 50 mcg/actuation nasal spray,suspension 2 sprays INTRANASAL DAILY PRN acetaminophen [Pain Reliever] 500 - 1,000 mg PO UD PRN esomeprazole magnesium 40 mg PO QAM furosemide 40 mg PO QAM ranitidine 300 mg tablet 300 mg PO HS Continue as directed Prolia 1 dose SUBCUT Q6M STOP taking 2 weeks before surgery (or as soon as possible if surgery is within 2 weeks) PreserVision AREDS-2 1 tab PO BID DO NOT take the morning of surgery Centrum Silver 1 tab PO QAM calcium carbonate 500 mg (1,250 mg)-vitamin D3 200 unit tablet 2 tab PO DAILY furosemide 40 mg PO QAM Take morning of surgery With a small sip of water, OTHERWISE NOTHING TO EAT OR DRINK AFTER MIDNIGHT: Simbrinza 1 drp OPHTHALMIC (EYE) BID Systane Ultra 1 drp OPHTHALMIC (EYE) UD PRN (if needed) fluticasone propionate 50 mcg/actuation nasal spray,suspension 2 sprays INTRANASAL DAILY PRN (if needed) acetaminophen [Pain Reliever] 500 - 1,000 mg PO UD PRN (okay to take up to 4 hours prior to surgery if needed) esomeprazole magnesium 40 mg PO QAM Take evening before surgery Simbrinza 1 drp OPHTHALMIC (EYE) BID Systane Ultra 1 drp OPHTHALMIC (EYE) UD PRN (if needed) Travatan Z 1 drp OPHTHALMIC (EYE) PM cholecalciferol (vitamin D3) [Vitamin D3] 1,000 unit PO QPM fluticasone propionate 50 mcg/actuation nasal spray,suspension 2 sprays INTRANASAL DAILY PRN (if needed) acetaminophen [Pain Reliever] 500 - 1,000 mg PO UD PRN (if needed) ranitidine 300 mg tablet 300 mg PO HS Other Notes If you have any questions please call us at [phone] or [phone] or [phone] or [phone]
--- NOTE | 2018-12-28 11:39 | Anesthesiology Consultation ---
Date of Service December 28, 2018 Assessment & Plan (1) Encounter for pre-operative examination: - Awaiting review preop testing. - Awaiting surgeon-ordered PCP [place]. [place] [facility] [place] s/p right shoulder arthroplasty: 06/02/18: Grade view 1, MAC#3, ETT 7.0 at [facility] - [place] limb restriction s/p right partial mastectomy Chart Review Chart Review: Patient seen in Pre Admission Testing Teaching & Discussion Pre-Anesthesia Teaching/Discussion Notes: Instructed NPO after midnight before surgery,except medications with 15 cc of water. Medication instructions pro vided according to the PAT guidelines. History Surgery Operation Date: 01/13/19 07:00 Proposed Procedures p Left Total Shoulder Arthroplasty - Lex Quintanilla MD Height/Weight Height: 5 ft 2 in Weight: 74.2 kg Allergies Allergy/AdvReac Type Severity Reaction Status Date / Time acetaminophen [From Vicodin] Allergy Unknown Rash Verified 12/24/18 10:41 aspirin Allergy Unknown unknown Verified 12/28/18 11:59 reaction- ? related to ulcer hx hydrocodone Allergy Unknown RASH - SEE Verified 12/28/18 11:59 NOTES NSAIDS (Non-Steroidal Allergy Unknown unknown Verified 12/28/18 11:59 Anti-Inflamma reaction- ? related to ulcer hx celecoxib AdvReac Unknown ulcer hx Verified 12/28/18 11:59 Medications Home Medications Medication Instructions Recorded Confirmed Last Taken Centrum Silver 1 tab PO QAM 05/05/18 12/24/18 06/01/18 12:00 PreserVision AREDS-2 1 tab PO BID 05/05/18 12/24/18 06/01/18 19:00 Prolia 1 dose SUBCUT Q6M 05/05/18 12/24/18 Unknown Simbrinza 1 drp OPHTHALMIC (EYE) BID 05/05/18 12/24/18 06/02/18 04:30 Systane Ultra 1 drp OPHTHALMIC (EYE) UD PRN 05/05/18 12/24/18 06/01/18 23:00 Travatan Z 1 drp OPHTHALMIC (EYE) PM 05/05/18 12/24/18 06/01/18 19:00 cholecalciferol (vitamin D3) 1,000 unit PO QPM 05/05/18 12/24/18 06/01/18 12:00 [Vitamin D3] calcium carbonate 500 mg (1,250 2 tab PO DAILY tab 12/18/18 12/22/18 Unknown mg)-vitamin D3 200 unit tablet fluticasone propionate 50 2 sprays INTRANASAL DAILY PRN #1 gm 12/18/18 12/22/18 Unknown mcg/actuation nasal spray,suspension acetaminophen [Pain Reliever] 500 - 1,000 mg PO UD PRN 12/22/18 12/24/18 Unknown esomeprazole magnesium 40 mg PO QAM 12/22/18 12/24/18 Unknown furosemide 40 mg PO QAM 12/22/18 12/24/18 Unknown ranitidine 300 mg tablet 300 mg PO HS 90 Days #90 tab 12/24/18 12/24/18 Unknown iron 1 tab PO DAILY 12/28/18 12/28/18 Unknown Past Medical History Medical History Anemia chronic Barretts esophagus Deaf left ear Eye problem Macular hole (right)- under surveillance GERD (gastroesophageal reflux disease) controlled Glaucoma History of skin cancer s/p resection/recurrence History of stomach ulcers 7 years ago Hx of breast cancer right - 2011 s/p partial mastectomy/XRT Leg edema lower extremity felt 2/2 venous insufficiency- managed on diuretic Osteoarthritis Osteoporosis Peripheral neuropathy feet Exercise / Class Metabolic Activity II 4-5 Yardwork/Stairs/Walk up hill Past Family History Family History Mother Family history of diabetes mellitus (DM) Past Surgical History Surgical History History of esophagogastroduodenoscopy (EGD) History of gastric polyp s/p resection History of knee replacement procedure of right knee Post op developed pseudomonas - had to have revision History of revision of total replacement of right knee joint History of total replacement of right shoulder joint Hx of bilateral cataract extraction Hx of colonoscopy Hx of partial mastectomy right Hx of tonsillectomy Past Anesthesia History No Hx of Anesthesia Complications and No Family Hx of Anesthesia Complications History of PONV No Hx of PONV and No Hx of Motion Sickness Social History Smoking Status: Never smoker Do You Dip or Chew Tobacco: No Hx Alcohol Use: Yes Alcohol type: wine alcohol intake frequency: other Alcohol Intake Frequency Comment: ONCE A MONTH Hx Substance Use: No substance use type: does not use Review of Systems Reflux controlled. Patient denies chest pain, shortness of breath, dyspnea on exertion, cough, wheezing, palpitations. Physical Exam Vital Signs VITALS BP 118/81 P 75 TEMP 97.9 SP02 96%RA RESP 16 PHYSICAL Full neck and c-spine range of motion. Full TMJ range of motion. TMD 4 finger breaths Mallampati Score 2 Dentition: intact, several caps/implants on sides/molars Lungs: clear throughout to auscultation Cardiac: regular rate and rhythm, I/ systolic murmur Spine: normal Carotid arteries: negative bruit Extremities: no edema Short neck Testing Laboratory Results 12/28/18 12:00 PT 9.6 Seconds (9.0-12.0) 12/28/18 12:00 INR 0.9 (0.9-1.1) 12/28/18 12:00 APTT 24.8 Seconds (21.0-31.0) 12/28/18 12:00 Urine Color Yellow 12/28/18 12:00 Urine Appearance Clear (Clear) 12/28/18 12:00 Urine pH 6.5 (4.5-7.5) 12/28/18 12:00 Ur Specific Duncan 1.012 (1.000-1.030) 12/28/18 12:00 Urine Protein Negative (Negative) 12/28/18 12:00 Urine Glucose (UA) Negative (Negative) 12/28/18 12:00 Urine Ketones Negative (Negative) 12/28/18 12:00 Urine Nitrite Negative (Negative) 12/28/18 12:00 Ur Leukocyte Esterase Negative (Negative) 12/28/18 12:00 Blood Type A Positive 12/28/18 12:00 Antibody Screen NEGATIVE 12/28/18 12:00 12/24/18 SODIUM 142 POTASSIUM 4.0 CHLORIDE 107 CO2 27 BUN 24 CREATININE 0.78 GLUCOSE 96 Electrocardiogram Date: 05/11/18 Findings: + NSR @ (70) Chest X-Ray Date: 04/09/18 There is no consolidation or evidence for pulmonary edema. There is moderate cardiomegaly. No acute cardiopulmonary findings. Large hiatal hernia. Moderate cardiomegaly. Echocardiogram Date: 04/22/18 EF: 60-65% LV wall motion, ventricular size and systolic function are normal. There is moderate cLVH. Grade I diastolic dysfunction. No RWMA. The LA is severely dilated. Sclerotic AV without significant stenosis. There is moderate mitral annular calcification with mild MR. Normal estimated RVSP.
[2018-12-28 15:21] LABS: Appearance Urine Clear (Clear); Basophils # (auto) 0.03 K/uL (0-0.2); Basophils % (auto) 0.7 %; Bilirubin Urine Negative (Negative); Blood Urine Negative (Negative); Color Urine Yellow; Eosinophils # (auto) 0.08 K/uL (0-0.5); Eosinophils % (auto) 1.8 %; Glucose Urine UA Negative (Negative); Hematocrit (blood only) 37.6 % (37-47); Hemoglobin 11.7 g/dL (12.0-16.0); Immature Granulocytes # (auto) 0.01 K/uL (0.00-0.02); Immature Granulocytes % (auto) 0.2 %; Ketones Urine Negative (Negative); Leukocyte Esterase Urine Negative (Negative); Lymphocytes # (auto) 1.06 K/uL (1.2-3.4); Lymphocytes % (auto) 23.5 %; Mean Corpuscular Hemoglobin 28.4 pg (25-34); Mean Corpuscular Hgb Conc 31.1 g/dL (32-36); Mean Corpuscular Volume 91.3 fL (80-100); Mean Platelet Volume 9.7 fL (7.4-10.4); Monocytes # (auto) 0.32 K/uL (0.11-0.59); Monocytes % (auto) 7.1 %; Neutrophils # (auto) 3.01 K/uL (1.4-6.5); Neutrophils % (auto) 66.7 %; Nitrite Urine Negative (Negative); Platelet Count 300 K/uL (130-400); Protein Urine Negative (Negative); RDW Coefficient of Variation 16.3 % (11.5-14.5); RDW Standard Deviation 54.6 fL (36.4-46.3); Red Blood Count 4.12 M/uL (4.2-5.4); Specific Gravity Urine 1.012 (1.000-1.030); Urobilinogen Urine Negative (Negative); White Blood Count 4.51 K/uL (4.8-10.8); pH Urine 6.5 (4.5-7.5)
[2018-12-28 15:31] LABS: INR 0.9 (0.9-1.1); Partial Thromboplastin Ratio 0.9; Partial Thromboplastin Time 24.8 Seconds (21.0-31.0); Prothrombin Time 9.6 Seconds (9.0-12.0)
--- NOTE | 2019-01-01 17:42 | History and Physical Report ---
DATE OF ADMISSION: 01/13/2019 CHIEF COMPLAINT: Left shoulder pain. HISTORY OF PRESENT ILLNESS: This 83-year-old white female presents to the office with complaints of left shoulder pain that has been longstanding. It has been ongoing for several years. She previously had a right total shoulder arthroplasty on 06/02/2018 and has done well with that. She now is ready to proceed with the same on the left. Pain is affecting her ADLs. She has difficulty with motion. She notes some loss of motion. She has crepitus in her shoulder with any motion. She has tried activity modification as well as anti-inflammatories and oral pain medication without lasting relief. No numbness or tingling. Preoperative imaging has been obtained. PAST MEDICAL HISTORY: History of breast cancer, gastric ulcer, hiatal hernia, GERD, history of right leg DVT June 2007, osteoarthritis, osteoporosis, history of TIA 1961, history of radiation therapy for breast cancer, and obesity. PAST SURGICAL HISTORY: Right shoulder TSA 06/02/2018, right knee replacement and right knee revision replacement in May 2007, tonsillectomy, partial mastectomy, right shoulder arthroscopy 2002, shave biopsies, herniorrhaphy. ALLERGIES: HYDROCODONE CAUSES A RASH. SHE does fine with Percocet and tramadol. FAMILY HISTORY: Noncontributory. Parents are . SOCIAL HISTORY: The patient is . Retired. Still works at an [employer] shop. No tobacco use. No ETOH use. MEDICATIONS: Lasix 40 mg daily, amoxicillin 500 mg p.r.n. for dental visits, valacyclovir 1 gram p.r.n., Lotemax x2 drops in both eyes daily, Systane eye drops 4 drops in each eye daily, vitamin D3 daily, multivitamin daily, Simbrinza ophthalmic suspension 1 drop in both eyes b.i.d., tramadol 50 mg q.4 hours p.r.n., Prolia subcutaneous twice a year, travoprost ophthalmic solution 1 drop in both eyes q.p.m., Arimidex 1 mg p.o. daily, ranitidine 300 mg p.o. daily, Tylenol 500 mg 2 tablets p.o. p.r.n., Nexium 40 mg p.o. daily, iron supplement daily. REVIEW OF SYSTEMS: A total of 10 systems are reviewed and are significant for above stated conditions. PHYSICAL EXAMINATION: VITAL SIGNS: Temperature 36.6, BP 116/79. GENERAL: Well-developed, well-nourished elderly white female in no acute distress. Sitting in a chair. Alert and oriented. SKIN: Warm and dry with fair turgor. No rashes or lesions. No ecchymosis or erythema. Peripheral edema is present in her legs as baseline. HEENT: Normocephalic, atraumatic. Eyes PERRLA, EOMI. Nares patent bilaterally without turbinate enlargement. Oropharynx without erythema or exudate. No lesions noted. Uvula midline. Oral mucosa moist. Fair dentition. Dental caps and fillings are noted. HEART: RRR. No MGR. LUNGS: Clear to auscultation bilaterally. No crackles, rhonchi or wheezing. Good air movement. ABDOMEN: Obese. Bowel sounds present x4, soft, nontender. No organomegaly. No masses. MUSCULOSKELETAL: Left shoulder evaluation reveals no obvious asymmetry or deformity. She has palpable crepitus with motion. There is forward flexion of around 120 degrees with abduction also 120 degrees. Behind the back reached the belt line. External rotation is limited to only about 5 degrees. Elbow exam is benign. Full range of motion. No pain with palpation over the elbow or biceps. There is focal pain with palpation over the glenohumeral joint, both anteriorly and posteriorly. NEUROLOGIC: Gross sensation is intact across both upper extremities by soft touch. Cranial nerves II-XII are intact. DATA: Radiographic imaging previously obtained shows end-stage DJD of the left shoulder. Periarticular osteophytes, subchondral sclerosis, and joint space loss are all present. ASSESSMENT: Left shoulder end-stage degenerative joint disease. PLAN: Postoperative prescription for Percocet will be provided at discharge from the hospital. Postoperative physical therapy for the day after surgery has been scheduled. Anticipate 23-hour observation overnight. Preoperative lab work, EKG, and chest x-ray have been ordered. Medical clearance has been requested from her PCP, Dr. Valentine. Informed written consent for left total shoulder arthroplasty will be obtained the day of surgery.
[2019-01-13] MEDS ORDERED: LR 60ML/HR IV SCH (06:00)
[2019-01-13] MEDS ORDERED: LR 15ML/HR IV SCH (06:00)
[2019-01-13] MEDS ORDERED: CEFAZOLIN 2000MG 2,000 MG/15 ML SYR IV SCH (06:00)
[2019-01-13] MEDS ORDERED: ROPIVACAINE 0.5% 5 MG/ML 30 ML VIAL ONE (06:21)
--- NOTE | 2019-01-13 06:30 | History & Physical Bridge Note ---
Date of Service January 13, 2019 History & Physical Bridge Note I have examined the patient, reviewed the History & Physical and in the interval since the performance of the History & Physical I have noted the following changes of clinical significance: consent obtained.no changes noted
[2019-01-13] MEDS ORDERED: MIDAZOLAM HCL 1 MG/ML 2ML VIAL ONE (06:35)
[2019-01-13] MEDS ORDERED: fentaNYL citrate 100 MCG/2 ML VIAL ONE (06:35)
[2019-01-13] MEDS ORDERED: NEOSTIGMINE METHYLSULFATE 5 MG/5 ML SYR ONE (06:42)
[2019-01-13] MEDS ORDERED: LIDOCAINE HCL 2% 2 ML VIAL/AMP(20MG/ML) INFIL ONE (06:42)
[2019-01-13] MEDS ORDERED: PROPOFOL IV EMULSION 10 MG/ML 20 ML VIAL IV ONE (06:42)
[2019-01-13] MEDS ORDERED: ONDANSETRON INJ 2 MG/ML 2 ML VIAL ONE (06:42)
[2019-01-13] MEDS ORDERED: GLYCOPYRROLATE 0.2 MG/ML VIAL ONE (06:42)
[2019-01-13] MEDS ORDERED: DEXAMETHASONE SOD INJ 4 MG/ML VIAL ONE (06:42)
[2019-01-13] MEDS ORDERED: BACITRACIN INJ 50,000 UNIT VIAL ONE (06:55)
[2019-01-13] MEDS ORDERED: THROMBIN FOR SOLN 20000 UNIT KIT ONE (06:55)
[2019-01-13] MEDS ORDERED: ATROPINE SULFATE 0.1 MG/ML 10ML SYR IV PRN (07:03)
[2019-01-13] MEDS ORDERED: fentaNYL citrate 100 MCG/2 ML VIAL IV PRN (07:03)
[2019-01-13] MEDS ORDERED: ONDANSETRON INJ 2 MG/ML 2 ML VIAL IV PRN ×2 (07:03→12:48)
--- NOTE | 2019-01-13 08:56 | Post Operative Brief Note ---
Immediate Post Op Note v1 Date of Surgery January 13, 2019 Pre & Post Diagnosis Operation Date: 01/13/19 07:00 Pre-Op Diagnosis: Left Shoulder End-Stage Degenerative Joint Disease Post-Op Diagnosis: Left Shoulder End-Stage Degenerative Joint Disease Procedure Operation Date: 01/13/19 07:00 Actual Procedures p Left Shoulder Cuff Tear Arthropathy--Uncemented(Left) - Lex Quintanilla MD Surgeon Lex Quintanilla MD Digital Field Service Technician theodore/adriana Estimated Blood Loss 50 Findings Consistent with Post-Op Diagnosis
--- NOTE | 2019-01-13 09:09 | Operative Report ---
Post Operative Report Pre & Post Diagnosis Operation Date: 01/13/19 07:00 Pre-Op Diagnosis: Left Shoulder End-Stage Degenerative Joint Disease Post-Op Diagnosis: Left Shoulder End-Stage Degenerative Joint Disease Procedure Operation Date: 01/13/19 07:00 Actual Procedures p Left Shoulder Cuff Tear Arthropathy--Uncemented(Left) - Lex Quintanilla MD Surgeon Lex Quintanilla MD Boarding House Manager theodore/adriana Estimated Blood Loss 50 Findings Consistent with Post-Op Diagnosis Specimens none Complications none Disposition Accompanied Patient To Recovery: Yes Disposition: Recovery Room Indications 83 years old woman with end-stage degenerative arthritis of left shoulder Description of Procedure Semi-beachchair position, standard prep and drape, timeout for patient safety Left CTA hemiarthroplasty of shoulder Please see Dr. Quintanilla's procedure notes for specific details I was present throughout the procedure, assisted for wound closure, sling application and transfer the patient to PACU in stable condition. I attest to the content of the Intraoperative Record and any orders documented therein. Any exceptions are noted below.
--- NOTE | 2019-01-13 09:32 | Operative Report ---
Post Operative Report Pre & Post Diagnosis Operation Date: 01/13/19 07:00 Pre-Op Diagnosis: Left Shoulder End-Stage Degenerative Joint Disease Post-Op Diagnosis: Left Shoulder End-Stage Degenerative Joint Disease Procedure Operation Date: 01/13/19 07:00 Actual Procedures p Left Shoulder Cuff Tear Arthropathy--Uncemented(Left) - Lex Quintanilla MD Surgeon EVELIN Quintanilla MD Bakery Associate theodore/adriana Estimated Blood Loss 50 Findings Consistent with Post-Op Diagnosis Specimens see operative report Drains none Complications intraop afib Disposition Accompanied Patient To Recovery: Yes Disposition: Recovery Room Indications This 83-year-old white female presented to the office with complaints of intractable left shoulder pain. She previously had a right total shoulder arthroplasty in May and did well. She elected to proceed with the same on the left. Pre-operative imaging was obtained. Description of Procedure Patient was administered a regional block and then taken to the operating room where she was given general anesthesia. She was prepped and draped in the usual sterile fashion. Please see Dr. Quintanilla's operative report for specifics of the procedure. I was present for the entire case from initial patient positioning through final wound closure. Assistance was provided in tissue retraction, hemostasis, trial implant placement, final implant placement, and final wound closure. Patient was taken to the recovery room in satisfactory condition. I attest to the content of the Intraoperative Record and any orders documented therein. Any exceptions are noted below.
[2019-01-13] MEDS ORDERED: ADENOSINE IV SOLN 3 MG/ML 2 ML VIAL IV ONE (09:35)
[2019-01-13] MEDS ORDERED: dilTIAZem HCL 125 MG in DEXTROSE 5% 100 ML IV SCH (09:45)
--- NOTE | 2019-01-13 09:47 | Operative Report ---
DATE OF OPERATION: 01/13/2019 SURGEON: Lex Quintanilla MD. SOUND EFFECTS PERSON: Dr. Delong. SECOND SOUND EFFECTS PERSON: Rocky Trujillo PA-C. PREOPERATIVE DIAGNOSES: Rotator cuff arthropathy left shoulder, degenerative joint disease. POSTOPERATIVE DIAGNOSES: Rotator cuff arthropathy left shoulder, degenerative joint disease. OPERATION PERFORMED: CTA resurfacing of left shoulder replacement. SUMMARY OF IMPLANTS: Size 10 stem, size 44 x 23 CTA head. JuggerKnot anchor, #2 MaxBraid short last inserter. PERIOPERATIVE SITUATION: Medically cleared female with intractable shoulder pain, had a total shoulder replacement on the other side, did well with that one, have the left one replaced as well. Options were discussed with her to do shoulder replacement versus CTA. She understands this is based on what I find in surgery. This was discussed with her and her . DESCRIPTION OF PROCEDURE: The patient was identified, site identified, consent verified. Antibiotics confirmed as being given. The left upper extremity was prepped and draped in usual routine fashion. The deltopectoral approach was then made. Sharp dissection was placed down through the skin and blunt dissection down to the vein. The vein was retracted laterally with the deltoid. She had marked contractures. Clavipectoral fascia and the deltoid was all scarred. There was exuberant tissue in and around the anterior shoulder leaking from the rotator interval. This was highly indicative of a severe rotator cuff deficiency. Once this was opened, this was verified, so a total shoulder replacement would not be possible. There was no superior cuff. The subscapularis was then tediously subperiosteally dissected off and tagged with #2 Ethibond sutures. It was then released. Care was then taken to dissect the capsule all the way around the shoulder. The osteophytes were then resected. Once this was all resected, the shoulder was then dislocated. The area of the resection was then marked and then resected. Head was sized to a 44. Osteophytes were then all removed around the neck. Care taken to protect the axillary nerve, which was palpated, but not dissected. Once this was all cleaned out, the glenoid did not have any loose pieces, everything was good. The canal was then opened and taken up to a size 10 and then the broach placed with the cutting block for the CTA head, this was then placed. Minor revision cut was made in the area of the tuberosity. Once this was done, the trial head was seated and the larger head was better. These allowed 50% subluxation of the glenohumeral joint with good stability of the shoulder. All trial implants were then removed. The wound was irrigated and then 3 holes placed for the #2 FiberWire sutures which were placed and then looped around the implant when was impacted into position and this was used to tie down the subscap. There was a little bit of redundancy in one of the sutures, so this was then augmented with a JuggerKnot which was placed in an oblique angle and allowed to fit completely down and had double loaded. This allowed extra repair to the subscapularis, which was very-very secure. The 2 tag sutures were then also incorporated into the repair making watertight seal laterally. The shoulder could be placed from internal rotation from the belly to 0 degrees with no issue and 30 degrees abduction, 30 degrees of forward flexion with no issue. The wound was then irrigated and final closure performed with #1 Vicryl for the fascial layer, 2-0 Vicryl for the subcutaneous layer and stainless steel clips for skin. Appropriate dressing applied. EBL was 50 mL. Upon placing the dressing, the patient flipped into atrial fibrillation and Anesthesia gave appropriate medications. The patient awoke from anesthesia with no chest pain, shortness of breath or whatever. They are just observing her in the Recovery Room at this point in time. She may need to be considered for telemetry bed; however, we will see how things go. PATHOLOGY: Pending on bone. ESTIMATED BLOOD LOSS: 50 mL. No DVT prophylaxis. I attest to the content of the Intraoperative Record and any orders documented therein. Any exceptions are noted below. MTDD
--- NOTE | 2019-01-13 10:41 | Anesthesiology Progress Note ---
Date of Service January 13, 2019 At end of case, patient went into a supraventricular tachycardia in the 150s, BP stable. Slight temporary improvement with esmolol and metoprolol - when fast looked regular so gave adenosine 6mg with brief slowing but quick return to 150s. To PACU, remained tachy and again looked like it was SVT so tried adenosine 12mg which resulted in a nice pause and 4-5 beats of sinus jorge but eventually she returned to the 140s to 160s and at times seems more irregular. Possibly going between A Fib and A flutter? Spoke with cardiology, started cardizem drip, ranging 130s - 150s. BP has remained in the 90s to 100s, patient asymptomatic. Cardiology aware and will be by to see her soon, he is OK for her to go to PCU if she is ready and remains stable and asymptomatic. Anesthesia Post Procedure Vital Signs Vital Signs: Temp Pulse Pulse Resp BP BP Pulse Ox 01/13/19 10:25 152 H 23 97/59 L 93 01/13/19 10:15 149 H 24 102/72 92 01/13/19 10:05 148 H 13 93/69 L 91 01/13/19 09:55 138 H 24 85/58 L 92 01/13/19 09:45 157 H 21 96/78 L 95 01/13/19 09:35 155 H 21 90/66 L 95 01/13/19 09:25 163 H 21 90/67 L 95 01/13/19 09:15 155 H 20 105/79 95 01/13/19 09:07 36.6 C 146 H 21 121/82 95 01/13/19 05:40 36.7 C 71 18 168/86 H 95 Pain Intensity Left Shoulder: Pain Intensity: 5 Transfer of Care Handoff Completed per policy Notes Mental Status: alert / awake / arousable Patient Amnestic to Procedure: Yes Nausea / Vomiting: adequately controlled Pain: adequately controlled Airway Patency, RR, SpO2: stable & adequate BP & HR: stable & adequate Hydration State: stable & adequate Anesthetic Complications: no major complications apparent
--- NOTE | 2019-01-13 11:09 | XRay Report ---
LEFT SHOULDER 3 VIEWS HISTORY: Post shoulder surgery COMPARISON: None. FINDINGS: Status post a left shoulder arthroplasty. The hardware appears intact. No fracture or dislo cation. Skin stephen are in place. Mild initial pulmonary edema and small left pleural effusion are n oted. The left clavicle is intact. IMPRESSION: Status post left shoulder arthroplasty. No evidence for hardware complications. Mild interstitial pul monary edema and a small left pleural effusion are noted. Electronically signed by: Steve Orlando M.D. 01/13/2019 11:07 AM
[2019-01-13 12:23] LABS: Hematocrit (blood only) 32.3 % (37-47); Hemoglobin 10.3 g/dL (12.0-16.0); Mean Corpuscular Hemoglobin 29.1 pg (25-34); Mean Corpuscular Volume 91.2 fL (80-100); Mean Platelet Volume 9.3 fL (7.4-10.4); Platelet Count 197 K/uL (130-400); RDW Coefficient of Variation 15.5 % (11.5-14.5); RDW Standard Deviation 52.2 fL (36.4-46.3); Red Blood Count 3.54 M/uL (4.2-5.4); White Blood Count 6.97 K/uL (4.8-10.8)
[2019-01-13 12:24] LABS: Mean Corpuscular Hgb Conc 31.9 g/dL (32-36)
[2019-01-13 12:40] LABS: Calcium 8.3 mg/dl (8.5-10.1); Creatinine Clr Calc Pharmacy 62.8 ml/min; Est GFR (African American) 96.5; Est GFR (Non-African American) 83.2; Potassium 3.5 mmol/L (3.5-5.1)
[2019-01-13] MEDS ORDERED: AMIODARONE IV BOLUS / DRIP IV STA (12:45)
[2019-01-13] MEDS ORDERED: MAGNESIUM HYDROXIDE SUSP 30 ML UDC PO PRN (12:48)
[2019-01-13] MEDS ORDERED: METOCLOPRAMIDE HCL INJ 5 MG/ML 2 ML VIAL IV PRN (12:48)
[2019-01-13] MEDS ORDERED: DiphenhydrAMINE HCL 50 MG/ML VIAL IV PRN (12:48)
[2019-01-13] MEDS ORDERED: TRAMADOL HCL 50 MG TABLET PO PRN (12:48)
[2019-01-13] MEDS ORDERED: bisacodyL 10 MG SUPP PR PRN (12:48)
[2019-01-13] MEDS ORDERED: ALUMINUM/MAGNESIUM SUSP 30 ML UDC PO PRN (12:48)
[2019-01-13] MEDS ORDERED: NALOXONE HCL 0.4 MG/1 ML VIAL/CARP IV PRN (12:48)
[2019-01-13 12:50] LABS: Thyroid Stimulating Hormone 0.765 uIu/ml (0.300-4.500)
[2019-01-13] MEDS ORDERED: AMIODARONE / D5W 150 MG/100 ML BAG IV ONE (12:50)
[2019-01-13] MEDS ORDERED: AMIODARONE / D5W 360 MG/200 ML BAG IV SCH (13:00)
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
--- NOTE | 2019-01-13 14:35 | Progress Note ---
DATE: 01/13/2019 SUBJECTIVE: Postop check status post CTA arthroplasty of left shoulder rotator cuff deficiency. At this point in time, the patient is doing well, has no major issues with chest pain, shortness of breath, fever, chills, nausea, vomiting or headache. OBJECTIVE: Vital signs are now stable. Her pulse is now in the 114 range. She has been seen by Cardiology. She was started on amiodarone. She also had a trial of diltiazem, which did not work. It is too early to do any type of IV heparin Vital signs are stable. She is afebrile. Neurovascular check is minimally limited by block. Wound dressing presently is clean, dry and intact.All nerves with function LUE including axillary. ASSESSMENT: Overall, doing well. Plan is to continue with postop care pathway, do not anticoagulate at this point in time with IV heparin that will increase postoperative hemorrhage risk and wound complications.Can start Eliquis/Pradaxa if needed 24 hrs post op. MTDD
[2019-01-13] MEDS: SODIUM CHLORIDE 0.9% 1000ML 1,000 ML IV SCH ×2 (14:44→23:28)
--- NOTE | 2019-01-13 14:48 | Discharge Summary ---
DATE OF DISCHARGE: Pending. CHIEF COMPLAINT: Left shoulder pain. HISTORY OF PRESENT ILLNESS: An 83-year-old female who underwent elective CTA arthroplasty for rotator cuff deficiency of her left shoulder. While in the operating room, when the procedure was completed, putting the dressing on, she went into atrial fibrillation. She is being treated actively with IV amiodarone. At the present time, she has no cardiac symptoms. Her postop course has been relatively uneventful otherwise. PAST MEDICAL HISTORY: Remarkable for breast cancer, gastric ulcer disease, hiatal hernia, GERD, right leg DVT, osteoarthritis, osteoporosis, history of TIA, history of radiation therapy for breast cancer and obesity. PAST SURGICAL HISTORY: Remarkable for right total shoulder replacement, right knee replacement, right revision knee replacement, total tonsillectomy, partial mastectomy, shoulder arthroscopy, shave biopsies, herniorrhaphy. ALLERGIES: HYDROCODONE WHICH CAUSES A RASH. She does fine with Percocet and tramadol. FAMILY HISTORY: Noncontributory. Parents are . SOCIAL HISTORY: Reveals she is , retired, but works in [employer] / ?.??. No tobacco or alcohol use. PREADMISSION MEDICATIONS: Include Lasix, amoxicillin, valacyclovir, Lotemax, Systane, vitamins, Simbrinza ophthalmic suspension, tramadol, Prolia, travoprost ophthalmic solution, Arimidex, ranitidine, Tylenol, Nexium, iron supplement. Anticoagulation per medicine postop. She will not start IV heparin at this point in time. I would suggest using Pradaxa or Eliquis 24 hours postop. REVIEW OF SYSTEMS: Noncontributory. PHYSICAL EXAMINATION: At this point in time reveals left arm to be in a sling. She denies any issues. Neurovascular check limited by block, but is developing abductor muscle function, indicating that the axillary nerve are starting to return as well as median, radial and ulnar nerve function distally. Postop x-rays look excellent. ASSESSMENT: Status post CTA arthroplasty, left shoulder. Hospital course has been eventful for new onset atrial fibrillation and is being followed by Medicine and Cardiology. At this point in time, discharge will be pending clearance from that. Again, would not start IV heparin at this point in time as that will increase risk for bleeding. Would suggest using Pradaxa or Eliquis 24 hours postop as a starting point. converted to sinus/discharge after medicine approves. MTDD
--- NOTE | 2019-01-13 15:24 | Consultation ---
Date of Consultation January 13, 2019 Assessment & Plan (1) Post-operative state: S/p left TSA Monitor for acute blood loss - CBC am Pain control, dvt proph per primary (2) Atrial fibrillation: Management per cardiology - currently on amiodarone gtt in a NSR (3) GERD (gastroesophageal reflux disease): Continue ranitidine, ppi Supervising Physician Co-Signing Physician Notes I supervised Nelia Dunbar NP on this patient's care. I examined the patient today independently of her. I discussed the plan of care with her with the plan being as written in her note except for any following changes/exceptions: None. History of Present Illness Ms. Clemons is post op left TSA. She was in what appeared to be SVT following surgery and was given lopressor, adenosine, and esmolol and then shortly there after when her heart rate again increased, another dose of adenosine. Her heart rhythm at that time was determined to be Afib RVR. She was placed on a cardizem gtt to which she did not have much response and was then placed on an amiodarone drip which caused her to convert back to a sinus rhythm after about 20 minutes according to nursing. She has had no cp, sob, palpitations or lightheadedness. She has no history of A.fib or any other cardiac history. 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 related to ulcer hx aspirin AdvReac Unknown unknown Verified 01/13/19 05:33 reaction- ? related to ulcer hx celecoxib AdvReac Unknown ulcer hx Verified 01/13/19 05:33 Home Medications Home Medications Medication Instructions Recorded Confirmed Type Centrum Silver 1 tab PO QAM 05/05/18 01/13/19 History PreserVision AREDS-2 1 tab PO BID 05/05/18 01/13/19 History Prolia 1 dose SUBCUT Q6M 05/05/18 01/13/19 History Simbrinza 1 drp OPHTHALMIC (EYE) BID 05/05/18 01/13/19 History Systane Ultra 1 drp OPHTHALMIC (EYE) UD PRN 05/05/18 01/13/19 History Travatan Z 1 drp OPHTHALMIC (EYE) PM 05/05/18 01/13/19 History cholecalciferol (vitamin D3) 1,000 unit PO QPM 05/05/18 01/13/19 History [Vitamin D3] calcium carbonate 500 mg (1,250 2 tab PO DAILY tab 12/18/18 01/13/19 History mg)-vitamin D3 200 unit tablet acetaminophen [Pain Reliever] 500 - 1,000 mg PO UD PRN 12/22/18 01/13/19 History esomeprazole magnesium 40 mg PO QAM 12/22/18 01/13/19 History furosemide 40 mg PO QAM 12/22/18 01/13/19 History ranitidine 300 mg tablet 300 mg PO HS 90 Days #90 tab 12/24/18 01/13/19 Rx iron 1 tab PO DAILY 12/28/18 01/13/19 History Patient History Medical History Atrial fibrillation Eye problem Macular hole (right)- under surveillance History of skin cancer s/p resection/recurrence History of stomach ulcers 7 years ago Anemia chronic Barretts esophagus Deaf left ear GERD (gastroesophageal reflux disease) controlled Glaucoma Hx of breast cancer right - 2010 s/p partial mastectomy/XRT Leg edema lower extremity felt 2/2 venous insufficiency- managed on diuretic Osteoarthritis Osteoporosis Peripheral neuropathy feet Surgical History History of revision of total replacement of right knee joint History of total replacement of right shoulder joint History of esophagogastroduodenoscopy (EGD) History of gastric polyp s/p resection History of knee replacement procedure of right knee Post op developed pseudomonas - had to have revision Hx of bilateral cataract extraction Hx of colonoscopy Hx of partial mastectomy right Hx of tonsillectomy Family History Mother Family history of diabetes mellitus (DM) Social History (Reviewed 12/23/18 @ 11:36 by Ann-Marie Fallon Preferred Language: Puerto Rican Communication Ability: Effective Digital Intern Required: No Beliefs That Will Affect Care: None marital status: Current Living Situation: Spouse Other Information That Helps Us Care for You: No Feels Safe at Home: Yes Smoking Status: Never smoker Do You Dip or Chew Tobacco: No ; Hx Alcohol Use: Yes Alcohol type: wine Hx Substance Use: No Review of Systems Review of Systems: All systems reviewed & are unremarkable except as noted in HPI & below Physical Exam Physical Exam: General: no distress Eyes: normal inspection, PERLL Respiratory: chest non tender, clear to auscultation, normal breath sounds, no respiratory distress, no accessory muscle use Cardiac: regular rate and rhythm, no rub or gallop, no murmur, no edema, no jvd GI/: active bowel sounds, no abd pain or tenderness, soft, non distended Extremities: normal range of motion, normal strength, non tender Neuro:oriented x 3, moves all extremities Psych: alert, normal mood and affect Skin: normal color, dry Results & Data Vital Signs (Past 12 Hours) Vital Signs Temp Pulse Pulse Resp BP BP Pulse Ox 01/13/19 12:12 36.3 C L 114 H 18 112/59 L 93 01/13/19 11:35 145 H 21 96/77 L 95 01/13/19 11:25 129 H 18 91/60 L 95 01/13/19 11:15 137 H 16 91/80 L 95 01/13/19 11:05 132 H 18 97/80 L 93 01/13/19 10:55 155 H 20 113/61 93 01/13/19 10:45 36.4 C L 141 H 21 98/74 L 93 01/13/19 10:35 145 H 25 H 100/72 93 01/13/19 10:25 152 H 23 97/59 L 93 01/13/19 10:15 149 H 24 102/72 92 01/13/19 10:05 148 H 13 93/69 L 91 01/13/19 09:55 138 H 24 85/58 L 92 01/13/19 09:45 157 H 21 96/78 L 95 01/13/19 09:35 155 H 21 90/66 L 95 01/13/19 09:25 163 H 21 90/67 L 95 01/13/19 09:15 155 H 20 105/79 95 01/13/19 09:07 36.6 C 146 H 21 121/82 95 01/13/19 05:40 36.7 C 71 18 168/86 H 95 PG Care Time/CCT Total # of Minutes Spent Total Time Spent with Patient: Total time spent is greater than 50% in coordination of care (as documented) at patient's floor/unit and/or counseling patient:
[2019-01-13] MEDS: CEFAZOLIN 2000MG 2,000 MG/15 ML SYR IV SCH ×2 (15:45→23:34)
[2019-01-13] MEDS: ACETAMINOPHEN 500 MG TAB PO SCH ×2 (16:02→22:19)
[2019-01-13] MEDS: SIMBRINZA ~ ORDER AWAITING ACTION SCH ×2 (17:27→23:34)
[2019-01-13] MEDS: AMIODARONE / D5W 360 MG/200 ML BAG IV SCH (19:49)
[2019-01-13] MEDS: DOCUSATE SODIUM 100 MG CAP PO SCH (19:51)
[2019-01-13] MEDS ORDERED: NON-FORMULARY MEDICATION (Vit C,E-Zn-Coppr-Lutein-Zeaxan [Preservision Areds-2] 1 TAB) PO SCH (21:00)
[2019-01-13] MEDS ORDERED: SENNA 8.6 MG TAB PO SCH (21:00)
[2019-01-13] MEDS ORDERED: TRAVOPROST Z 0.004% OPH SOLN 2.5 ML BTL OP SCH (21:00)
[2019-01-13] MEDS: HYDROmorphone INJ 0.5 MG/0.5 ML SYR IV PRN (22:22)
[2019-01-14] MEDS: HYDROmorphone INJ 0.5 MG/0.5 ML SYR IV PRN ×3 (02:35→10:32)
[2019-01-14] MEDS: ACETAMINOPHEN 500 MG TAB PO SCH ×2 (05:09→13:10)
[2019-01-14] MEDS: AMIODARONE / D5W 360 MG/200 ML BAG IV SCH (05:35)
[2019-01-14] MEDS ORDERED: ACETAMINOPHEN 500 MG TAB PO PRN (06:29)
[2019-01-14] MEDS ORDERED: HYDROmorphone HCL 2 MG TAB PO PRN (06:32)
[2019-01-14] MEDS ORDERED: TRAMADOL HCL 50 MG TABLET PO PRN (06:45)
[2019-01-14 07:08] LABS: Basophils # (auto) 0.01 K/uL (0-0.2); Basophils % (auto) 0.2 %; Eosinophils # (auto) 0.14 K/uL (0-0.5); Eosinophils % (auto) 2.1 %; Hematocrit (blood only) 29.1 % (37-47); Hemoglobin 9.2 g/dL (12.0-16.0); Immature Granulocytes # (auto) 0.02 K/uL (0.00-0.02); Immature Granulocytes % (auto) 0.3 %; Lymphocytes # (auto) 1.16 K/uL (1.2-3.4); Lymphocytes % (auto) 17.7 %; Mean Corpuscular Hemoglobin 29.5 pg (25-34); Mean Corpuscular Hgb Conc 31.6 g/dL (32-36); Mean Corpuscular Volume 93.3 fL (80-100); Mean Platelet Volume 9.4 fL (7.4-10.4); Monocytes # (auto) 0.76 K/uL (0.11-0.59); Monocytes % (auto) 11.6 %; Neutrophils # (auto) 4.46 K/uL (1.4-6.5); Neutrophils % (auto) 68.1 %; Platelet Count 201 K/uL (130-400); RDW Coefficient of Variation 16.1 % (11.5-14.5); RDW Standard Deviation 54.4 fL (36.4-46.3); Red Blood Count 3.12 M/uL (4.2-5.4); White Blood Count 6.55 K/uL (4.8-10.8)
[2019-01-14 07:38] LABS: BUN Creatinine Ratio 18.9 (10-20); Calcium 7.5 mg/dl (8.5-10.1); Creatinine Clr Calc Pharmacy 54.6 ml/min; Est GFR (African American) 89.1; Est GFR (Non-African American) 76.9; Potassium 3.4 mmol/L (3.5-5.1)
[2019-01-14] MEDS ORDERED: dexAMETHasone 10 MG in SYRINGE 0 ML IV SCH (08:00)
[2019-01-14] MEDS: DOCUSATE SODIUM 100 MG CAP PO SCH (08:33)
[2019-01-14] MEDS: SIMBRINZA ~ ORDER AWAITING ACTION SCH (08:33)
[2019-01-14] MEDS ORDERED: FUROSEMIDE 40 MG TAB PO SCH (09:00)
[2019-01-14] MEDS ORDERED: PANTOprazole 40 MG TAB PO SCH (09:00)
[2019-01-14] MEDS ORDERED: MULTIVITAMIN TAB PO SCH (09:00)
--- NOTE | 2019-01-14 09:07 | Anesthesiology Progress Note ---
Date of Service January 14, 2019 Anesthesia Post Procedure Vital Signs Vital Signs: Temp Pulse Resp BP Pulse Ox 01/14/19 07:50 36.2 C L 67 20 110/69 95 01/14/19 02:42 36.4 C L 66 18 110/58 L 97 01/13/19 23:18 37.0 C 69 18 102/59 L 94 01/13/19 22:28 72 107/64 01/13/19 19:33 36.3 C L 77 18 99/64 L 92 01/13/19 15:35 36.4 C L 78 18 111/69 92 01/13/19 12:12 36.3 C L 114 H 18 112/59 L 93 01/13/19 11:35 145 H 21 96/77 L 95 01/13/19 11:25 129 H 18 91/60 L 95 01/13/19 11:15 137 H 16 91/80 L 95 01/13/19 11:05 132 H 18 97/80 L 93 01/13/19 10:55 155 H 20 113/61 93 01/13/19 10:45 36.4 C L 141 H 21 98/74 L 93 01/13/19 10:35 145 H 25 H 100/72 93 01/13/19 10:25 152 H 23 97/59 L 93 01/13/19 10:15 149 H 24 102/72 92 01/13/19 10:05 148 H 13 93/69 L 91 01/13/19 09:55 138 H 24 85/58 L 92 01/13/19 09:45 157 H 21 96/78 L 95 01/13/19 09:35 155 H 21 90/66 L 95 01/13/19 09:25 163 H 21 90/67 L 95 01/13/19 09:15 155 H 20 105/79 95 01/13/19 09:07 36.6 C 146 H 21 121/82 95 Pain Intensity Left Shoulder: Pain Intensity: 4 Notes Mental Status: alert / awake / arousable and participated in evaluation Nausea / Vomiting: adequately controlled Pain: adequately controlled Airway Patency, RR, SpO2: stable & adequate BP & HR: stable & adequate Hydration State: stable & adequate
--- NOTE | 2019-01-14 09:09 | Anesthesiology Progress Note ---
Date of Service January 14, 2019 Anesthesia Post Procedure Vital Signs Vital Signs: Temp Pulse Resp BP Pulse Ox 01/14/19 07:50 36.2 C L 67 20 110/69 95 01/14/19 02:42 36.4 C L 66 18 110/58 L 97 01/13/19 23:18 37.0 C 69 18 102/59 L 94 01/13/19 22:28 72 107/64 01/13/19 19:33 36.3 C L 77 18 99/64 L 92 01/13/19 15:35 36.4 C L 78 18 111/69 92 01/13/19 12:12 36.3 C L 114 H 18 112/59 L 93 01/13/19 11:35 145 H 21 96/77 L 95 01/13/19 11:25 129 H 18 91/60 L 95 01/13/19 11:15 137 H 16 91/80 L 95 01/13/19 11:05 132 H 18 97/80 L 93 01/13/19 10:55 155 H 20 113/61 93 01/13/19 10:45 36.4 C L 141 H 21 98/74 L 93 01/13/19 10:35 145 H 25 H 100/72 93 01/13/19 10:25 152 H 23 97/59 L 93 01/13/19 10:15 149 H 24 102/72 92 01/13/19 10:05 148 H 13 93/69 L 91 01/13/19 09:55 138 H 24 85/58 L 92 01/13/19 09:45 157 H 21 96/78 L 95 01/13/19 09:35 155 H 21 90/66 L 95 01/13/19 09:25 163 H 21 90/67 L 95 01/13/19 09:15 155 H 20 105/79 95 Pain Intensity Left Shoulder: Pain Intensity: 4 Notes Mental Status: alert / awake / arousable and participated in evaluation Nausea / Vomiting: adequately controlled Pain: improving with treatment Airway Patency, RR, SpO2: stable & adequate BP & HR: stable & adequate Hydration State: stable & adequate Notes: Per anesthesia providers, block provided pain control during shoulder operation. Patient states that the last time she had her shoulder done, it wasn't as painful on postop day 2. Patient was told at time of block that it was expected to wear off that evening. No adverse outcomes noted, expected resolution of block.
--- NOTE | 2019-01-14 09:57 | Progress Note ---
DATE: 01/14/2019 SUBJECTIVE: status post hemiarthroplasty, CT A head, noncemented left upper extremity. At this point in time, the patient is in sinus rhythm. She has no chest pain, shortness of breath, fever, chills, nausea, vomiting or headache. Vital signs are stable. She is afebrile. Hematocrit stable at 29.1. some of the drop is probably hemodilution. Her body weight is up several pounds from IV fluid. There is no excessive dressing drainage. Neurovascular check, median, radian, ulnar, suprascapular axillary nerve are all intact. ASSESSMENT: Overall, doing well. At this point in time, she is back in sinus rhythm. She can be discharged from orthopedic perspective. Will await medical clearance. Mobilized. Outpatient PT already scheduled. RUTH
--- NOTE | 2019-01-14 10:40 | Cardiology Progress Note ---
Date of Service January 14, 2019 Assessment & Plan (1) Atrial fibrillation: She converted while on amiodarone drip yesterday. Amiodarone can be discontinued. Thirty day event monitor is being arranged as an outpatient by cardiology office. Given the fact that she has severe left atrial dilation, would recommend anticoagulation on discharge as there is concern that she may be having paroxysmal atrial fibrillation that has been undiagnosed. If she is found to have no further atrial fibrillation, anticoagulation therapy can be discontinued as an outpatient. Start metoprolol succinate 25 mg once daily now and on discharge. Recommend Eliquis 5 mg twice daily on discharge. (2) Paroxysmal ventricular tachycardia: Five beat run overnight. Beta-adan recommended as above. Replete potassium. (3) Hypokalemia: Potassium chloride 20 mEq p.o. x1 ordered. Disposition: Follow-up with Cardiology in 1-2 months (appointment is being made by cardiology office) after 30 day event monitor. Recommend Eliquis 5 mg twice daily on discharge if no contraindications. Recommend beta-adan on discharge. Patient care discussed with Dr. Mahan of hospitalist service as well as nursing staff. Please call with any other questions or concerns. Subjective She denies chest pain, shortness of breath, syncope, near-syncope, palpitations, or bleeding such as melena, hematochezia, or hematuria. She did have some significant left shoulder pain overnight. Her son, Malachi, is present at the bedside. Review of systems: As above. Physical Exam Physical Exam: Gen.: No acute distress. Alert and oriented. HEENT: Anicteric sclera. Neck: No JVD. Cardiac: Regular. Normal S1-S2. 2/6 early peaking systolic ejection murmur. No rubs, or gallops. Pulmonary: Clear to auscultation bilaterally without wheezes, rales, or rhonchi. Abdomen: Soft, nontender, nondistended, with normoactive bowel sounds. No bruits noted. Extremities: Trace bilateral lower extremity edema. No cyanosis. Psychiatric: Affect appears appropriate. Results & Data Vital Signs (Past 12 Hours) Vital Signs Temp Pulse Resp BP Pulse Ox 01/14/19 07:50 36.2 C L 67 20 110/69 95 01/14/19 02:42 36.4 C L 66 18 110/58 L 97 01/13/19 23:18 37.0 C 69 18 102/59 L 94 Laboratory Results Laboratory Results - last 24 hr 01/13/19 01/13/19 01/14/19 12:15 12:15 06:32 WBC 6.97 6.55 RBC 3.54 L 3.12 L Hgb 10.3 L 9.2 L Hct 32.3 L 29.1 L MCV 91.2 93.3 MCH 29.1 29.5 MCHC 31.9 L 31.6 L RDW Std Deviation 52.2 H 54.4 H RDW Coeff of Rubina 15.5 H 16.1 H Plt Count 197 201 MPV 9.3 9.4 Immature Gran % (Auto) 0.3 Neut % (Auto) 68.1 Lymph % (Auto) 17.7 [place] % (Auto) 11.6 Eos % (Auto) 2.1 Baso % (Auto) 0.2 Immature Gran # (Auto) 0.02 Neut # (Auto) 4.46 Lymph # (Auto) 1.16 L [place] # (Auto) 0.76 H Eos # (Auto) 0.14 Baso # (Auto) 0.01 Sodium 140 Potassium 3.5 Chloride 110 H Carbon Dioxide 22 Anion Gap 8.0 BUN 17 Creatinine 0.61 Est Cr Clr Drug Dosing 62.8 Est GFR ( Amer) 96.5 Est GFR (Non-Af Amer) 83.2 BUN/Creatinine Ratio 27.0 H Glucose 144 H Calcium 8.3 L Ionized Calcium Magnesium 2.0 Albumin TSH 0.765 01/14/19 01/14/19 01/14/19 06:32 08:31 08:31 WBC RBC Hgb Hct MCV MCH MCHC RDW Std Deviation RDW Coeff of Rubina Plt Count MPV Immature Gran % (Auto) Neut % (Auto) Lymph % (Auto) [place] % (Auto) Eos % (Auto) Baso % (Auto) Immature Gran # (Auto) Neut # (Auto) Lymph # (Auto) [place] # (Auto) Eos # (Auto) Baso # (Auto) Sodium 142 Potassium 3.4 L Chloride 111 H Carbon Dioxide 23 Anion Gap 8.0 BUN 14 Creatinine 0.72 Est Cr Clr Drug Dosing 54.6 Est GFR ( Amer) 89.1 Est GFR (Non-Af Amer) 76.9 BUN/Creatinine Ratio 18.9 Glucose 101 H Calcium 7.5 L Ionized Calcium 1.02 L Magnesium Albumin 2.9 L TSH Diagnostic Findings Telemetry personally reviewed: Converted from atrial fibrillation to sinus rhythm yesterday afternoon. She did have a 5 beat run of ventricular tachycardia at 3:11 a.m. this morning. Currently sinus rhythm. ECG personally reviewed: ECG 01/14/2019 at 9:49 a.m.: Sinus rhythm 73 bpm. Echo 01/13/2019: Normal LV size, wall motion, systolic function. EF 65-70%. Mild LVH. Severe left atrial dilation. Mild right atrial dilation. Sclerotic aortic valve. Moderate MAC. Mild MR. RVSP 38. Medications Administered Current Inpatient Medications Acetaminophen (Tylenol) 1,000 mg PO Q8 THERESA Stop: 02/12/19 13:59 Last Admin: 01/14/19 05:09 Dose: 1,000 mg Documented by: Acetaminophen (Tylenol) 1,000 mg PO Q6H PRN PRN Reason: Pain Stop: 02/13/19 06:28 Al Hydrox/Mg Hydrox/Simethicone (Maalox) 15 ml PO Q4H PRN PRN Reason: Heartburn Stop: 02/12/19 12:47 Bisacodyl (Dulcolax) 10 mg [place] DAILY PRN PRN Reason: Constipation Stop: 02/12/19 12:47 Diphenhydramine HCl (Benadryl) 25 mg IV Q8H PRN PRN Reason: Itching Stop: 02/12/19 12:47 Docusate Sodium (Colace) 100 mg PO BID THERESA Stop: 02/12/19 20:59 Last Admin: 01/14/19 08:33 Dose: 100 mg Documented by: Furosemide (Lasix) 40 mg PO QAM THERESA Stop: 02/13/19 08:59 Last Admin: 01/14/19 08:33 Dose: 40 mg Documented by: Hydromorphone HCl (Dilaudid) 0.5 mg IV Q2H PRN PRN Reason: Pain Stop: 01/27/19 12:47 Last Admin: 01/14/19 10:32 Dose: 0.5 mg Documented by: Hydromorphone HCl (Dilaudid) 2 mg PO Q4HWA PRN PRN Reason: Pain Stop: 01/28/19 06:31 Magnesium Hydroxide (Milk Of Magnesia) 30 ml PO Q6H PRN PRN Reason: Constipation Stop: 02/12/19 12:47 Metoclopramide HCl (Reglan) 10 mg IV Q6H PRN PRN Reason: Nausea And Vomiting Stop: 02/12/19 12:47 Metoprolol Succinate (Toprol Xl) 25 mg PO [facility] Stop: 02/13/19 10:44 Miscellaneous (Order Awaiting Action) 1 ea N/A QS [facility] Stop: 02/12/19 15:59 Last Admin: 01/14/19 08:33 Dose: Not Given Documented by: Miscellaneous (Order Awaiting Action) 1 ea N/A QS [facility] Stop: 02/12/19 15:59 Last Admin: 01/14/19 08:33 Dose: Not Given Documented by: Multivitamins (Multivitamin Tab) 1 tab PO [facility] Stop: 02/13/19 08:59 Last Admin: 01/14/19 08:33 Dose: 1 tab Documented by: Naloxone HCl (Narcan) 0.1 mg IV Q5M PRN PRN Reason: Oversedation/Resp Depression Stop: 02/12/19 12:47 Ondansetron HCl (Zofran) 4 mg IV Q6H PRN PRN Reason: Nausea And Vomiting Stop: 02/12/19 12:47 Pantoprazole Sodium (Protonix) 40 mg PO [facility] Stop: 02/13/19 08:59 Last Admin: 01/14/19 08:32 Dose: 40 mg Documented by: Potassium Chloride (Klor-Con M20) 20 meq PO NOW [facility] Stop: 01/14/19 10:36 Ranitidine HCl (Zantac) 300 mg PO [facility] Stop: 02/12/19 20:59 Last Admin: 01/13/19 19:53 Dose: 300 mg Documented by: Sennosides (Senokot) 17.2 mg PO [facility] Stop: 02/12/19 20:59 Last Admin: 01/13/19 19:52 Dose: 17.2 mg Documented by: Tramadol HCl (Ultram) 50 - 100 mg PO Q4H PRN PRN Reason: Pain Stop: 02/12/19 12:47 Tramadol HCl (Ultram) 50 - 100 mg PO Q4H PRN PRN Reason: Pain Stop: 02/13/19 06:44 Last Admin: 01/14/19 08:31 Dose: 100 mg Documented by: PG Care Time/CCT Total # of Minutes Spent Total Time Spent with Patient: Total time spent is greater than 50% in coordination of care (as documented) at patient's floor/unit and/or counseling patient:
[2019-01-14] MEDS ORDERED: POTASSIUM CHLORIDE 20 MEQ TABCR PO ONE (11:00)
[2019-01-14] MEDS ORDERED: METOPROLOL SUCC 25MG EXT REL TAB PO SCH (11:00)
--- NOTE | 2019-01-14 11:53 | Hospitalist Progress Note ---
Date of Service January 14, 2019 Assessment & Plan (1) Post-operative state: S/p left TSA Monitor for acute blood loss - 1 gm decrease from pre op Pain control, dvt proph per primary (2) Atrial fibrillation: Management per cardiology - patient converted after amiodarone Echo showed normal EF with atrial dilatation and elevated right ventricular systolic pressure - per cardiology recs patient will go home on Eliquis and metoprolol and will follow up with outpatient monitor. Patient did have a weight gain of 4 kgs from yesterday but this was on two different scales so not sure how accurate it is. Her net positive I&O is about 2L. Her lungs are clear, no sob, she does have chronic edema in her lower extremities. Per nursing, cardiology aware of the weight discrepancy. (3) GERD (gastroesophageal reflux disease): Continue ranitidine, ppi Dispo: Medicine will sign off, patient is good for discharge form our end as long as ok with cardiology Subjective Ms. Clemons is feeling well, looking forward to going home Review of Systems Review of Systems: All systems reviewed & are unremarkable except as noted in HPI & below Physical Exam Physical Exam: General: no distress Eyes: normal inspection, PERLL Respiratory: chest non tender, clear to auscultation, normal breath sounds, no respiratory distress, no accessory muscle use Cardiac: regular rate and rhythm, no rub or gallop, systolic murmur, + le edema bilaterally GI/: active bowel sounds, no abd pain or tenderness, soft, non distended Extremities: normal range of motion, normal strength, non tender Neuro/Psych: alert and oriented x 3, normal mood and affect Skin: normal color, dry Results & Data Vital Signs (Past 12 Hours) Vital Signs Temp Pulse Pulse Resp BP Pulse Ox 01/14/19 08:00 68 01/14/19 07:50 36.2 C L 67 20 110/69 95 01/14/19 02:42 36.4 C L 66 18 110/58 L 97 PG Care Time/CCT Total # of Minutes Spent Total Time Spent with Patient: Total time spent is greater than 50% in coordination of care (as documented) at patient's floor/unit and/or counseling patient:
--- NOTE | 2019-01-14 12:26 | Orthopedic Progress Note ---
Date of Service January 14, 2019 Assessment & Plan (1) Atrial fibrillation: Appreciate the input from cardiology. Metoprolol 25 mg p.o. daily per cardiology recommendation. Prescription has been provided. Eliquis 5 mg twice daily until Holter monitor is completed. Prescription has been provided. Follow-up with cardiology for reevaluation. Present on Admission?: No (2) History of arthroplasty of left shoulder: Discharge to the office this afternoon for her physical therapy appointment at 230. Continue her sling. Prescription for Percocet has been provided for pain control. No active use of the left arm for 6 weeks. Subjective Patient was seen in her room this morning. Her son is in attendance. She states her block did not work last night. She did have significant pain last night but feels reasonably comfortable at this point. She has been taking Percocet oxycodone without difficulty. No rashes. She denies any chest pain or shortness of breath. She did convert from her atrial fibrillation to regular sinus rhythm after administration of amiodarone. Cardiology has already given their input regarding anticoagulation, rhythm medication, and postop follow-up. Appreciate the input. She has no other complaints. Physical Exam Physical Exam: Left shoulder has an intact dressing. No leakage. Patient has intact motor function to her wrist and digits. Full circumduction of the wrist and thumb. Full flexion and extension of the fingers. Strength is 5/5 for resisted motion. No motion was attempted of the shoulder. Neurologic: Gross sensation is intact across the left arm by soft touch. Peripheral pulses are 2+. Results & Data Vital Signs (Past 12 Hours) Vital Signs Temp Pulse Pulse Resp BP Pulse Ox 01/14/19 08:00 68 01/14/19 07:50 36.2 C L 67 20 110/69 95 01/14/19 02:42 36.4 C L 66 18 110/58 L 97 ECG Additional Comments: EKG obtained this morning shows a normal sinus rhythm with a rate of 73. No acute ST wave changes.
== END 2019-01-14 14:04 | disposition home or self-care (01) ==
LOC: 2S 05:03 → ASU 05:03

== ENCOUNTER 2019-05-19 06:48 | Inpatient (IN) ==
--- NOTE | 2019-04-26 16:23 | History and Physical Report ---
DATE OF ADMISSION: 05/19/2019 PATIENT OF: Lex Quintanilla MD. CHIEF COMPLAINT: Left knee pain. HISTORY OF PRESENT ILLNESS: This 83-year-old white female presents today for evaluation of left knee pain. Pain has been longstanding and ongoing for several years. She previously had a right total knee replacement and subsequent right knee revision in 05/2007. She has done well with that. Left knee pain has been increasing with time. She elects to proceed with left total knee arthroplasty in hopes of alleviating her pain. No numbness or tingling. Pain is worse with weightbearing. It does affect her ADLs. She denies any significant swelling. Occasional night pain. She has tried activity modification, physical therapy, viscosupplementation injections and oral pain medication without lasting improvement. Preoperative imaging has been obtained. PAST MEDICAL HISTORY: Significant for hypertension, history of breast cancer, gastric ulcer, hiatal hernia, GERD, history of right leg DVT in 06/2007, osteoarthritis, osteoporosis, history of TIA in 1961, history of radiation therapy for breast cancer, and obesity. PAST SURGICAL HISTORY: Left total shoulder arthroplasty on 02/02/2019, right shoulder TSA on 06/02/2018, right knee replacement and right knee revision replacement in 05/2007, tonsillectomy, partial mastectomy, right shoulder arthroscopy in 2002, shave biopsies, herniorrhaphy. ALLERGIES: KNOWN ALLERGY TO HYDROCODONE WHICH CAUSES A RASH. She does fine with Percocet and tramadol, CELEBREX ALSO CAUSES A RASH. FAMILY HISTORY: Noncontributory. Parents are . SOCIAL HISTORY: The patient is . Retired. 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 No tobacco use. No ETOH use. CURRENT MEDICATIONS: Iron daily, valacyclovir 1 gram p.r.n., furosemide 40 mg p.o. daily, Lotemax ophthalmic 2 drops in both eyes daily, Systane eye drops 4 drops daily in both eyes, vitamin D daily, multivitamin daily, Simbrinza 1 drop in both eyes b.i.d., tramadol 50 mg q.4 hours p.r.n., Prolia subcutaneous injection twice a year, Travatan 0.004% ophthalmic solution 1 drop in both eyes q.p.m., calcium b.i.d., ranitidine 300 mg p.o. daily, Tylenol p.r.n., Nexium 40 mg p.o. daily, amoxicillin 500 mg prior to dental visits, metoprolol unknown dose daily, Arimidex 1 mg p.o. daily. REVIEW OF SYSTEMS: A total of 10 systems are reviewed and are significant only for the above-stated conditions. PHYSICAL EXAMINATION: VITAL SIGNS: Temperature 36.5 oral, BP 110/72, pulse 84, O2 sat 97% on room air. Weight 72.4 kg, height 155.8 cm, BMI 29.8. GENERAL: Well-developed, well-nourished elderly white female in no acute distress. Sitting in a chair. Alert and oriented. SKIN: Warm and dry with fair turgor. No rashes or lesions. No ecchymosis or erythema. No intraarticular effusion in the left knee. She does have peripheral edema in her lower legs. HEENT: Normocephalic, atraumatic. Eyes PERRLA, EOMI. Nares patent bilaterally without turbinate enlargement. Oropharynx without erythema or exudate. No lesions noted. Uvula midline. Oral mucosa moist. Fair dentition. Dental caps and fillings are noted. HEART: RRR. No MGR. LUNGS: Clear to auscultation bilaterally. No crackles, rhonchi or wheezing. Good air movement. ABDOMEN: Obese. Bowel sounds present x4, soft, nontender. No organomegaly. No masses. MUSCULOSKELETAL: Left knee evaluation reveals no intraarticular effusion. No redness or warmth. Obvious arthritic changes. No palpable crepitus with motion today. Full terminal extension. Flexion to greater than 100 degrees. Strength is 5/5 with fair quad tone. Stable collateral ligaments. There is focal discomfort with palpation over the medial joint line. She also has lateral joint line discomfort. No peripatellar discomfort at this time. Ambulates with a slightly antalgic gait. No defect in the patellar tendon or quadriceps tendon. NEUROLOGIC: Cranial nerves II through XII are intact. Gross sensation is intact across both lower extremities by soft touch. Peripheral pulses are 2+. DATA: Radiographic imaging previously obtained shows severe degenerative changes in all 3 compartments of the left knee. Periarticular osteophytes, subchondral sclerosis, and joint space narrowing are all present. IMPRESSION: Left knee end-stage degenerative joint disease. PLAN: Informed written consent will be obtained in the morning of surgery to proceed with left total knee arthroplasty. Postoperative prescription for Percocet will be provided at discharge from the hospital. Anticipate discharge to home with home health services. Preoperative lab work, EKG, and chest x-ray have been ordered. Medical clearance has been requested from her PCP, Dr. Valentine. She already has a walker and cane at home. Anticipate use of Coumadin postoperatively.
--- NOTE | 2019-05-07 10:20 | Anesthesiology Consultation ---
Date of Service May 07, 2019 Assessment & Plan Chart Review Chart Review: Acceptable Risk for Surgery and Patient NOT seen in Pre Admission Testing afib/SVT in pacu. Pt nerve block worked for 24 hours but previous blocks had lasted longer Consults Requested none History Surgery Operation Date: 05/19/19 07:00 Proposed Procedures p Left Total Knee Arthroplasty - Lex Quintanilla MD Height/Weight Height: 5 ft 1 in Weight: 71.214 kg Allergies Allergy/AdvReac Type Severity Reaction Status Date / Time aspirin AdvReac Unknown unknown Verified 04/19/19 09:03 reaction- ? related to ulcer hx celecoxib AdvReac Unknown ulcer hx Verified 04/19/19 09:03 NSAIDS (Non-Steroidal AdvReac Unknown unknown Verified 04/19/19 09:03 Anti-Inflamma reaction- ? related to ulcer hx Medications Home Medications Medication Instructions Recorded Confirmed Last Taken Centrum Silver 1 tab PO QAM 05/05/18 04/19/19 01/12/19 10:00 PreserVision AREDS-2 1 tab PO BID 05/05/18 04/19/19 01/08/19 Simbrinza 1 drp OPHTHALMIC (EYE) BID 05/05/18 04/19/19 01/12/19 22:00 Systane Ultra 1 drp OPHTHALMIC (EYE) UD PRN 05/05/18 04/19/19 01/06/19 Travatan Z 1 drp OPHTHALMIC (EYE) PM 05/05/18 04/19/19 01/12/19 10:00 calcium carbonate 500 mg (1,250 1 tab PO BID tab 12/18/18 04/19/19 01/12/19 18:00 mg)-vitamin D3 200 unit tablet acetaminophen [Pain Reliever] 1,000 mg PO BID 12/22/18 04/19/19 01/12/19 22:00 furosemide 40 mg PO QAM 12/22/18 04/19/19 01/12/19 10:00 esomeprazole magnesium 40 mg 40 mg PO QAM #90 cap 03/03/19 04/19/19 Unknown capsule,delayed release denosumab 60 mg/mL subcutaneous 60 mg SUBCUT Q6MO ml 03/24/19 04/19/19 Unknown syringe cholecalciferol (vitamin D3) 50 mcg PO QPM 04/19/19 04/19/19 Unknown [Vitamin D3] ferrous sulfate [iron] 65 mg PO QAM 04/19/19 04/19/19 Unknown metoprolol succinate 25 mg PO QAM 04/19/19 04/19/19 Unknown ranitidine HCl 300 mg tablet 300 mg PO HS 90 Days #90 tab 04/24/19 Unknown Past Medical History Medical History Adverse anesthesia outcome " ANESTHESIA NERVE BLOCK DID NOT WORK" Anemia chronic Aortic valve sclerosis Barretts esophagus Deaf left ear GERD (gastroesophageal reflux disease) controlled Glaucoma History of atrial fibrillation HAD POST OP EPISODE - CURRENTLY CONTROLLED BY MEDS History of skin cancer s/p resection/recurrence History of stomach ulcers 7 years ago Hx of breast cancer right - 2010 s/p partial mastectomy/XRT Leg edema lower extremity felt 2/2 venous insufficiency- managed on diuretic Macular degeneration Osteoarthritis Osteoporosis Peripheral neuropathy feet Past Family History Family History Mother Family history of diabetes mellitus (DM) Breast cancer Father Myocardial infarction Past Surgical History Surgical History History of esophagogastroduodenoscopy (EGD) History of gastric polyp s/p resection History of knee replacement procedure of right knee Post op developed pseudomonas - had to have revision History of left shoulder replacement History of revision of total replacement of right knee joint History of total replacement of right shoulder joint Hx of bilateral cataract extraction Hx of colonoscopy Hx of hernia repair Hx of partial mastectomy right Hx of tonsillectomy Social History Smoking Status: Never smoker Do You Dip or Chew Tobacco: No Hx Alcohol Use: Yes Alcohol type: wine alcohol intake frequency: a few times a month Hx Substance Use: No substance use type: does not use Testing Electrocardiogram Date: 05/03/19 Findings: + NSR @ (75 bpm PAC) Chest X-Ray Date: 05/03/19 Findings: + NAD
[2019-05-10 14:31] LABS: Basophils # (auto) 0.01 K/uL (0-0.2); Basophils % (auto) 0.2 %; Eosinophils # (auto) 0.06 K/uL (0-0.5); Eosinophils % (auto) 1.1 %; Hematocrit (blood only) 38.2 % (37-47); Immature Granulocytes # (auto) 0.01 K/uL (0.00-0.02); Immature Granulocytes % (auto) 0.2 %; Lymphocytes # (auto) 1.03 K/uL (1.2-3.4); Lymphocytes % (auto) 19.5 %; Mean Corpuscular Hemoglobin 27.9 pg (25-34); Mean Corpuscular Hgb Conc 31.4 g/dL (32-36); Mean Corpuscular Volume 88.8 fL (80-100); Mean Platelet Volume 9.3 fL (7.4-10.4); Monocytes # (auto) 0.29 K/uL (0.11-0.59); Monocytes % (auto) 5.5 %; Neutrophils # (auto) 3.87 K/uL (1.4-6.5); Neutrophils % (auto) 73.5 %; Platelet Count 298 K/uL (130-400); RDW Coefficient of Variation 15.3 % (11.5-14.5); RDW Standard Deviation 49.4 fL (36.4-46.3); White Blood Count 5.27 K/uL (4.8-10.8)
[2019-05-10 14:49] LABS: Appearance Urine Clear (Clear); Bilirubin Urine Negative (Negative); Blood Urine Negative (Negative); Color Urine Yellow; Glucose Urine UA Negative (Negative); Ketones Urine Negative (Negative); Leukocyte Esterase Urine Negative (Negative); Nitrite Urine Negative (Negative); Protein Urine Negative (Negative); Urobilinogen Urine Negative (Negative)
[2019-05-10 14:53] LABS: Partial Thromboplastin Ratio 0.9; Partial Thromboplastin Time 23.4 Seconds (21.0-31.0); Prothrombin Time 10.2 Seconds (9.0-12.0)
[~2019-05-19 06:48] MED LIST changes: -ACET1TAB84 PO; +BUPIVACAINE 0.5 % 5 MG/1 ML PF 10ML VIAL ONE; -CALC500C70 PO; +CEFAZOLIN 2000MG 2,000 MG/15 ML SYR IV SCH; -FERR1TAB23 PO; -GARC1TAB PO; +LR 500ML BOLUS, THEN 15ML/HR IV SCH; +LR 60ML/HR IV SCH; -MULT-190 PO; -MULT-506 PO; -NXM/40 PO; +ROPIVACAINE 0.5% HCL/PF 150 MG, BUPIVACAINE 0.5% MPF 30 ML, EPINEPHrine 0.15 MG, dexAME... INFIL SCH; -TRAM-10 PO; +TRANEXAMIC ACID 1,000 MG x 1 **For Topical Use TOP SCH; -TRAV0.00 OPB; -ZNT/150 PO
--- NOTE | 2019-05-19 07:00 | History & Physical Bridge Note ---
Date of Service May 19, 2019 History & Physical Bridge Note I have examined the patient, reviewed the History & Physical and in the interval since the performance of the History & Physical I have noted the following changes of clinical significance:consent obtained. no changes noted
[2019-05-19] MEDS ORDERED: ePHEDrine sulfate 50 MG/ML AMP IV PRN (07:17)
[2019-05-19] MEDS ORDERED: ATROPINE SULFATE 0.1 MG/ML 10ML SYR IV PRN (07:17)
[2019-05-19] MEDS ORDERED: fentaNYL citrate 100 MCG/2 ML VIAL IV PRN (07:17)
[2019-05-19] MEDS ORDERED: ONDANSETRON INJ 2 MG/ML 2 ML VIAL IV PRN ×2 (07:17→12:07)
[2019-05-19] MEDS ORDERED: ORTHO JOINT ANESTHETIC ONE (08:22)
[2019-05-19] MEDS ORDERED: LIDOCAINE HCL 2% 2 ML VIAL/AMP(20MG/ML) INFIL ONE (09:34)
[2019-05-19] MEDS ORDERED: ONDANSETRON INJ 2 MG/ML 2 ML VIAL ONE ×2 (09:34→09:35)
[2019-05-19] MEDS ORDERED: PROPOFOL IV EMULSION 10 MG/ML 20 ML VIAL IV ONE ×2 (09:34→09:35)
[2019-05-19] MEDS ORDERED: fentaNYL citrate 100 MCG/2 ML VIAL ONE (09:35)
[2019-05-19] MEDS ORDERED: MIDAZOLAM HCL 1 MG/ML 2ML VIAL ONE (09:35)
--- NOTE | 2019-05-19 10:16 | Post Operative Brief Note ---
Immediate Post Op Note v1 Date of Surgery May 19, 2019 Pre & Post Diagnosis Operation Date: 05/19/19 08:50 Pre-Op Diagnosis: Left Knee End-Stage Degenerative Joint Disease Post-Op Diagnosis: Left Knee End-Stage Degenerative Joint Disease I identified the patient and participated in the time-out.: Yes Procedure Operation Date: 05/19/19 08:50 Actual Procedures p Left Total Knee Arthroplasty(Left) - Lex Quintanilla MD Surgeon Lex Quintanilla MD Boat Deckhand delores/adriana Estimated Blood Loss 50 Findings Consistent with Post-Op Diagnosis
--- NOTE | 2019-05-19 10:24 | Operative Report ---
DATE OF OPERATION: 05/19/2019 SURGEON: Lex Quintanilla MD NEWSPAPER PRESS OPERATOR APPRENTICE: Sinid. SECOND NEWSPAPER PRESS OPERATOR APPRENTICE: Rocky Trujillo PA-C. PREOPERATIVE DIAGNOSIS: Severe osteoarthritis, left knee with valgus and flexion contracture deformity, left knee, tricompartmental disease by x-ray. POSTOPERATIVE DIAGNOSIS: Severe osteoarthritis, left knee with valgus and flexion contracture deformity, left knee, tricompartmental disease by x-ray. SURGERY PERFORMED: Left total knee arthroplasty cemented. PERIOPERATIVE SITUATION: Medically cleared female with intractable knee pain, has significant physical disability and positive x-rays and physical exam and wants to proceed with surgical treatment. Risks and consequences identified. SUMMARY OF IMPLANTS: Size 2 left posterior cruciate substituting femur, size 3 mobile bearing tray, size 38 patella, size 3 x 10 posterior cruciate substituting insert. Two bags of Palacos G cement. ESTIMATED BLOOD LOSS: 50 mL. CRYSTALLOID: Per anesthesia. PATHOLOGY: Pending on bone. DVT prophylaxis per protocol. DESCRIPTION OF PROCEDURE: The patient was properly identified, site verified, consent verified. Antibiotics confirmed as being given. Left lower extremity was prepped and draped in usual routine fashion. Tourniquet inflated to 275 mmHg after exsanguination of limb with a rubber Esmarch bandage for a total of roughly 56 minutes. Midline exposure utilized. Parapatellar arthrotomy performed. Synovectomy completed. Large amount of osteophytes resected. There was no ACL. The osteotome used to open up the box, PCL identified, distal femur then entered, cruciate resected posteriorly and then the tibia subluxated, menisci resected. Femur then resected 14 mm tibia, 4 mm, extension gap was excellent. Both were sized to a size 3, appropriate cutting block applied and the anterior, posterior condylar and chamfer cuts made. Flexion gap checked. It was excellent. There was a 4 mm resection off the tibia and a size 3 fit well. Once the extension and flexion gaps were identified, the box cut was then made and the size 3 femur fit well. The tibia was then broached and reamed to a 3 and the tracking of the extensor mechanism was slightly lateral, so an internal release performed and it tracked very well. The patella was then resected leaving roughly 15-16 mm. Seating holes made and the trial fit well and tracked well. All implants were then removed. The TXA placed for 3 minutes. Wound irrigated and then permanent mplants cemented in position, tibia, femur and patella in that order. After 12 minutes, the tourniquet deflated. Minor bleeding points controlled with electrocautery. After 14 minutes knee flexed, knee tracked well. Good stability. The trial liner was removed. The wound irrigated with Betadine Pulsavac, permanent liner seated, knee reduced and closed at roughly 50 degrees of flexion with #2 Vicryl, 2-0 Vicryl and stainless steel clips. Appropriate dressing applied. The patient transferred to recovery room in satisfactory condition having tolerated the procedure well. I attest to the content of the Intraoperative Record and any orders documented therein. Any exception s are noted below.
--- NOTE | 2019-05-19 10:24 | Operative Report ---
Post Operative Report Pre & Post Diagnosis Operation Date: 05/19/19 08:50 Pre-Op Diagnosis: Left Knee End-Stage Degenerative Joint Disease Post-Op Diagnosis: Left Knee End-Stage Degenerative Joint Disease I identified the patient and participated in the time-out.: Yes Procedure Operation Date: 05/19/19 08:50 Actual Procedures p Left Total Knee Arthroplasty(Left) - Lex Quintanilla MD Surgeon EVELIN Quintanilla MD Caramel Cutter Machine delores/adriana Estimated Blood Loss 50 Findings Consistent with Post-Op Diagnosis Specimens see operative report Drains none Complications none Disposition Accompanied Patient To Recovery: Yes Disposition: Recovery Room Indications This 83-year-old white female presented to the office with complaints of intractable left knee pain. She had tried conservative care measures without improvement. She elected to proceed with surgical intervention after being educated about potential risks and outcomes. Preoperative imaging was obtained. Description of Procedure Patient was administered a spinal anesthetic and then taken to the operating room where she was given sedation. She was prepped and draped in the usual sterile fashion. Please see Dr. Quintanilla's operative report for specifics of the procedure. I was present for the entire case from initial patient positioning through final wound closure. Assistance was provided in tissue retraction, hemostasis, trial implant placement, final implant placement, and final wound closure. Patient was taken to the recovery room in satisfactory condition. I attest to the content of the Intraoperative Record and any orders documented therein. Any exceptions are noted below.
--- NOTE | 2019-05-19 10:41 | Operative Report ---
Post Operative Report Pre & Post Diagnosis Operation Date: 05/19/19 08:50 Pre-Op Diagnosis: Left Knee End-Stage Degenerative Joint Disease Post-Op Diagnosis: Left Knee End-Stage Degenerative Joint Disease I identified the patient and participated in the time-out.: Yes Procedure Operation Date: 05/19/19 08:50 Actual Procedures p Left Total Knee Arthroplasty(Left) - Lex Quintanilla MD Surgeon Lex Quintanilla MD Tobacco Scrap Sifter theodore/adriana Estimated Blood Loss 50 Findings Consistent with Post-Op Diagnosis Specimens as per procedure notes Complications none Disposition Accompanied Patient To Recovery: Yes Disposition: Recovery Room Description of Procedure supine, standard prep and drape, time out, tourniquet Left Total Knee Arthroplasty Please see Dr Quintanilla's procedure notes for specific details I was present throughout the case, assisted for wound closure and transferred the patient to PACU in stable condition I attest to the content of the Intraoperative Record and any orders documented therein. Any exceptions are noted below.
[2019-05-19] MEDS ORDERED: VANCOMYCIN HCL 1,000 MG in SODIUM CHLORIDE 0.9% 250 ML IV SCH (10:45)
--- NOTE | 2019-05-19 10:47 | XRay Report ---
XR knee LT 1 or 2V routine HISTORY: 83 years-old Female post op Left TKA left knee total joint arthroplasty COMPARISON: Left knee radiographs 04/23/2019 TECHNIQUE: 2 views of the left knee FINDINGS: Left knee total joint arthroplasty and patella resurfacing. Anterior midline skin stephen are noted a long with expected postsurgical soft tissue swelling and deep tissue air with surgical drainage dayana ter. Satisfactory alignment without acute fracture or retained foreign body. IMPRESSION: Left knee total joint arthroplasty and patella resurfacing with expected postoperative fi ndings. ACT 112: Negative or not required by law. The above report was generated using voice recognition software. It may contain grammatical, syntax o r spelling errors. Electronically signed by: Edy Lopez M.D. 05/19/2019 10:46 AM
--- NOTE | 2019-05-19 12:02 | Anesthesiology Progress Note ---
Date of Service May 19, 2019 Anesthesia Post Procedure Vital Signs Vital Signs: Temp Pulse Pulse Resp BP Pulse Ox 05/19/19 11:40 98.1 F 51 L 15 120/68 100 05/19/19 11:30 98.1 F 51 L 14 124/64 100 05/19/19 11:20 50 L 13 133/72 100 05/19/19 11:10 50 L 12 124/71 100 05/19/19 11:00 51 L 18 120/69 100 05/19/19 10:50 50 L 15 134/70 100 05/19/19 10:40 66 18 117/62 100 05/19/19 10:30 53 L 13 119/66 100 05/19/19 10:24 97.2 F L 58 L 16 107/61 100 05/19/19 07:13 97.9 F 65 20 144/73 H 97 Pain Intensity Left Knee: Pain Intensity: 0 Transfer of Care Handoff Completed per policy Notes Mental Status: alert / awake / arousable and participated in evaluation Patient Amnestic to Procedure: Yes Nausea / Vomiting: adequately controlled Pain: adequately controlled Airway Patency, RR, SpO2: stable & adequate BP & HR: stable & adequate Hydration State: stable & adequate Neuraxial Anesthesia: was administered and sensory block is resolving Anesthetic Complications: no major complications apparent and Pt Satisfied with anesthetic care
[2019-05-19] MEDS ORDERED: MAGNESIUM HYDROXIDE SUSP 30 ML UDC PO PRN (12:07)
[2019-05-19] MEDS ORDERED: METOCLOPRAMIDE HCL INJ 5 MG/ML 2 ML VIAL IV PRN (12:07)
[2019-05-19] MEDS ORDERED: SODIUM CHLORIDE 0.9% 1000ML 1,000 ML IV SCH (12:07)
[2019-05-19] MEDS ORDERED: bisacodyL 10 MG SUPP PR PRN (12:07)
[2019-05-19] MEDS ORDERED: ALUMINUM/MAGNESIUM SUSP 30 ML UDC PO PRN (12:07)
[2019-05-19] MEDS ORDERED: DiphenhydrAMINE HCL 50 MG/ML VIAL IV PRN (12:07)
[2019-05-19] MEDS ORDERED: ARTIFICIAL TEARS OP OINT 3.5 GM TUBE OP PRN (12:07)
[2019-05-19] MEDS ORDERED: NALOXONE HCL 0.4 MG/1 ML VIAL/CARP IV PRN (12:07)
[2019-05-19] MEDS ORDERED: HYDROmorphone INJ 0.5 MG/0.5 ML SYR IV PRN (12:07)
--- NOTE | 2019-05-19 13:39 | Discharge Summary ---
CHIEF COMPLAINT: Left knee pain. HISTORY OF PRESENT ILLNESS: Underwent elective left total knee replacement. Hospital course has been uneventful to date. PAST MEDICAL HISTORY: Remarkable for hypertension, breast cancer, gastric ulcer, hiatal hernia, GERD, history of DVT in the right leg, osteoarthritis, osteoporosis, history of TIA, history of radiation therapy for breast cancer, obesity, multiple joint replacements. PAST SURGICAL HISTORY: Remarkable for left shoulder arthroplasty, right shoulder arthroplasty, right knee replacement with revision, tonsillectomy, partial mastectomy, right shoulder arthroscopy, shave biopsies, herniorrhaphy. ALLERGIES: HYDROCODONE, WHICH CAUSES RASH. She does fine with Percocet and tramadol. CELEBREX CAUSES RASH. FAMILY HISTORY: Noncontributory. Parents are . 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 No tobacco or alcohol use. PREADMISSION MEDICATIONS: Include iron, valacyclovir, furosemide, Lotemax ophthalmic, Systane eye drops, vitamins, Simbrinza, tramadol, Prolia, Travatan ophthalmic solution, calcium, ranitidine, Tylenol, Nexium, amoxicillin, metoprolol, Arimidex. She will be discharged on Coumadin to keep INR 1.8-2.2. REVIEW OF SYSTEMS: Noncontributory. IMAGING: Postoperative x-rays look excellent. HOSPITAL COURSE: To date has been uneventful. ASSESSMENT: Overall doing well status post left total knee replacement. Discharge home tomorrow with care management involvement.
[2019-05-19] MEDS: ACETAMINOPHEN 500 MG TAB PO SCH ×2 (14:21→22:15)
[2019-05-19] MEDS: OXYCODONE HCL IR 5 MG TAB (IMMEDIATE RELEASE) PO PRN ×2 (14:22→19:04)
--- NOTE | 2019-05-19 14:26 | Progress Note ---
DATE: 05/19/2019 Postop left total knee replacement. The patient is sitting up in bed eating her lunch. She denies any nausea, vomiting, chest pain, shortness of breath, fever or chills. Vital signs are stable. She is afebrile. Neurovascular check femoral sciatic nerve is normal. Postoperative x-rays look excellent. Wound dressing clean, dry and intact. ASSESSMENT: Doing well. Continue with postop care pathway. Discharge tomorrow. Case management to see today.
[2019-05-19] MEDS: ORTHO WARFARIN NOMOGRAM SCH (14:31)
[2019-05-19] MEDS ORDERED: WARFARIN SOD 5 MG TAB PO SCH (16:00)
[2019-05-19] MEDS: CEFAZOLIN 2000MG 2,000 MG/15 ML SYR IV SCH (17:05)
[2019-05-19] MEDS: ASCORBIC ACID 500 MG TAB PO SCH (19:00)
[2019-05-19] MEDS: FERROUS GLUCONATE 324 MG TAB PO SCH (19:00)
[2019-05-19] MEDS: SIMBRINZA OP SCH (20:47)
[2019-05-19] MEDS: DOCUSATE SODIUM 100 MG CAP PO SCH (20:47)
[2019-05-19] MEDS: CEROVITE ADV FORMULA TAB PO SCH (20:47)
[2019-05-19] MEDS ORDERED: SENNA 8.6 MG TAB PO SCH (21:00)
[2019-05-19] MEDS ORDERED: TRAVOPROST Z 0.004% OPH SOLN 2.5 ML BTL OP SCH (21:00)
[2019-05-20] MEDS: CEFAZOLIN 2000MG 2,000 MG/15 ML SYR IV SCH (00:19)
[2019-05-20] MEDS: OXYCODONE HCL IR 5 MG TAB (IMMEDIATE RELEASE) PO PRN ×3 (02:01→10:19)
[2019-05-20 03:59] VITALS: TEMP 98.2
[2019-05-20] MEDS: ACETAMINOPHEN 500 MG TAB PO SCH (05:36)
[2019-05-20 06:21] LABS: Hematocrit (blood only) 30.7 % (37-47); Hemoglobin 9.6 g/dL (12.0-16.0); Mean Corpuscular Hemoglobin 27.8 pg (25-34); Mean Corpuscular Hgb Conc 31.3 g/dL (32-36); Mean Platelet Volume 9.6 fL (7.4-10.4); Platelet Count 207 K/uL (130-400); RDW Coefficient of Variation 15.4 % (11.5-14.5); RDW Standard Deviation 50.1 fL (36.4-46.3); Red Blood Count 3.45 M/uL (4.2-5.4); White Blood Count 6.83 K/uL (4.8-10.8)
--- NOTE | 2019-05-20 06:28 | Progress Note ---
DATE: 05/19/2019 SUBJECTIVE: The patient is sitting up. A small interface. There were no major issues. Pain is on and off. At this point in time, appears a bit older reactionary to some of the pain. OBJECTIVE: Vital signs are stable. She is afebrile. Laboratory work is pending. Wound dressing clean, dry and intact. Neurovascular check femoral sciatic nerve is normal. ASSESSMENT: Encouraged her to get up and move around. Discharge on Coumadin today per INR results. I addressed her questions concerning Arron. I do not want that at this point in time. The knee immobilizer for the next 2-3 days for ambulation. Follow up for outpatient PT and staple removal in 2 weeks.
[2019-05-20 06:30] LABS: INR 1.1 (0.9-1.1); Prothrombin Time 11.3 Seconds (9.0-12.0)
[2019-05-20 06:52] LABS: BUN Creatinine Ratio 25.9 (10-20); Calcium 8.8 mg/dl (8.5-10.1); Creatinine Clr Calc Pharmacy 53.8 ml/min; Est GFR (African American) 90.7; Est GFR (Non-African American) 78.2; Potassium 3.9 mmol/L (3.5-5.1)
[2019-05-20] MEDS ORDERED: dexAMETHasone 10 MG in SYRINGE 0 ML IV SCH (08:00)
[2019-05-20 08:08] VITALS: BP 112/70; PULSE 64; O2SAT 92
[2019-05-20] MEDS: ASCORBIC ACID 500 MG TAB PO SCH (08:18)
[2019-05-20] MEDS: DOCUSATE SODIUM 100 MG CAP PO SCH (08:19)
[2019-05-20] MEDS: SIMBRINZA OP SCH (08:19)
[2019-05-20] MEDS: FERROUS GLUCONATE 324 MG TAB PO SCH (08:19)
[2019-05-20] MEDS: CEROVITE ADV FORMULA TAB PO SCH (08:19)
--- NOTE | 2019-05-20 08:22 | Anesthesiology Progress Note ---
Date of Service May 20, 2019 Anesthesia Post Procedure Vital Signs Vital Signs: Temp Pulse Pulse Resp BP Pulse Ox 05/20/19 08:06 36.8 C 64 18 112/70 92 05/20/19 03:57 36.8 C 66 18 118/76 94 05/19/19 23:43 36.7 C 74 18 97/60 L 93 05/19/19 19:35 36.6 C 63 18 109/65 93 05/19/19 15:28 36.6 C 66 18 136/74 95 05/19/19 13:55 65 20 116/73 96 05/19/19 12:52 62 16 126/74 100 05/19/19 11:55 36.5 C 56 L 16 118/73 96 05/19/19 11:40 36.7 C 51 L 15 120/68 100 05/19/19 11:30 36.7 C 51 L 14 124/64 100 05/19/19 11:20 50 L 13 133/72 100 05/19/19 11:10 50 L 12 124/71 100 05/19/19 11:00 51 L 18 120/69 100 05/19/19 10:50 50 L 15 134/70 100 05/19/19 10:40 66 18 117/62 100 05/19/19 10:30 53 L 13 119/66 100 05/19/19 10:24 36.2 C L 58 L 16 107/61 100 Pain Intensity Left Knee: Pain Intensity: 3 Notes Mental Status: alert / awake / arousable and participated in evaluation Patient Amnestic to Procedure: Yes Nausea / Vomiting: adequately controlled Pain: adequately controlled Airway Patency, RR, SpO2: stable & adequate BP & HR: stable & adequate Hydration State: stable & adequate Neuraxial Anesthesia: was administered and sensory block resolved Anesthetic Complications: no major complications apparent and Pt Satisfied with anesthetic care
[2019-05-20] MEDS: ORTHO WARFARIN NOMOGRAM SCH (08:27)
[2019-05-20] MEDS ORDERED: PANTOprazole 40 MG TAB PO SCH (09:00)
[2019-05-20] MEDS ORDERED: METOPROLOL SUCC 25MG EXT REL TAB PO SCH (09:00)
[2019-05-20] MEDS ORDERED: FUROSEMIDE 40 MG TAB PO SCH (09:00)
[2019-05-20] MEDS ORDERED: MULTIVITAMIN TAB PO SCH (09:00)
--- NOTE | 2019-05-20 09:08 | Orthopedic Progress Note ---
Date of Service May 20, 2019 Assessment & Plan (1) S/P total knee replacement using cement: Dressing was changed today by me. VELMA hose were applied. PT/OT today. Anticipate discharge to home with home health services after therapy. Follow-up in the office in 2 weeks for staple removal. Continue using her walker for ambulation. Use the knee immobilizer when standing or ambulating through Friday morning and then discontinue Call the office with any concerns/questions Coumadin 4 mg daily and have her blood rechecked on Friday Subjective Patient is seen in her room this morning. She is eating breakfast. She denies any chest pain, shortness of breath, nausea, or vomiting. States she does have some pain in the left knee. She is unable to perform straight leg raise. No numbness or tingling. No other complaints. Review of Systems Review of Systems: Unchanged from preop yesterday. Physical Exam Physical Exam: General: Well-developed, elderly white female, in no acute distress. Sitting in her bed. Alert and oriented. Skin: Warm and dry with good turgor. No rashes or lesions. Expected postoperative ecchymosis and edema. No erythema. The patient is not diaphoretic. No abrasions. Musculoskeletal: Postsurgical dressings are in place. Upon removal, expected postoperative ecchymosis and edema. Rashad are intact. Wound edges well approximated. No active drainage. Scant dried blood on her dressings. Patient is able to move her ankle and toes. She is able to flex her knee to around 30 degrees. Full terminal extension. Unable to perform a straight leg raise at this time. Neurologic: Gross sensation is intact across all aspects of the left leg and foot by soft touch. Peripheral pulses are 2+. Results & Data ([facility]) Vital Signs (Past 12 Hours) Vital Signs Temp Pulse Resp BP Pulse Ox 05/20/19 07:45 36.8 C 64 18 112/70 92 05/20/19 03:57 36.8 C 66 18 118/76 94 05/19/19 23:43 36.7 C 74 18 97/60 L 93 Laboratory Results WBC 6.8. H&H 9.6 and 30.7. INR 1.1.
[2019-05-20] MEDS ORDERED: WARFARIN SOD 5 MG TAB PO SCH (16:00)
== END 2019-05-20 12:44 | disposition home health service (06) | DRG 470 ==
LOC: ASU 06:48 → 3E 10:31
DX: Z82.49 Family history of ischemic heart disease and other diseases of the circulatory system; I48.91 Unspecified atrial fibrillation; H40.9 Unspecified glaucoma; M81.0 Age-related osteoporosis without current pathological fracture; Z86.73 Personal history of transient ischemic attack (TIA), and cerebral infarction without residual deficits; Z51.81 Encounter for therapeutic drug level monitoring; M17.12 Unilateral primary osteoarthritis, left knee; Z85.3 Personal history of malignant neoplasm of breast; Z88.5 Allergy status to narcotic agent; I87.2 Venous insufficiency (chronic) (peripheral); K22.70 Barrett's esophagus without dysplasia; Z68.30 Body mass index [BMI] 30.0-30.9, adult; H35.30 Unspecified macular degeneration; Z79.899 Other long term (current) drug therapy; D64.9 Anemia, unspecified; E66.9 Obesity, unspecified; Z88.6 Allergy status to analgesic agent; M21.062 Valgus deformity, not elsewhere classified, left knee; Z86.718 Personal history of other venous thrombosis and embolism; Z80.3 Family history of malignant neoplasm of breast; Z96.651 Presence of right artificial knee joint; M24.562 Contracture, left knee; I10 Essential (primary) hypertension; K21.9 Gastro-esophageal reflux disease without esophagitis

== ENCOUNTER 2022-02-25 14:01 | Inpatient (IN) ==
[2022-02-25] MEDS ORDERED: SODIUM CHLORIDE 0.9% 500 ML IV STA (14:26)
[2022-02-25 15:05] LABS: Basophils # (auto) 0.03 K/uL (0-0.2); Basophils % (auto) 0.4 %; Eosinophils # (auto) 0.06 K/uL (0-0.50); Eosinophils % (auto) 0.7 %; Hematocrit (blood only) 37.6 % (34.1-44.9); Hemoglobin 12.4 g/dl (12.0-16.0); Immature Granulocytes # (auto) 0.03 K/uL (0.00-0.02); Immature Granulocytes % (auto) 0.4 %; Lymphocytes # (auto) 1.03 K/uL (1.2-3.4); Lymphocytes % (auto) 12.2 %; Mean Corpuscular Hemoglobin 29.2 pg (25.0-34.0); Mean Corpuscular Volume 88.5 fL (80.0-100.0); Mean Platelet Volume 9.2 fL (9.4-12.3); Monocytes # (auto) 0.47 K/uL (0.24-0.82); Monocytes % (auto) 5.6 %; Neutrophils # (auto) 6.79 K/uL (1.4-6.5); Neutrophils % (auto) 80.7 %; Platelet Count 331 K/uL (130-400); RDW Coefficient of Variation 14.2 % (11.5-14.5); RDW Standard Deviation 45.6 fL (36.4-46.3); Red Blood Count 4.25 M/uL (3.93-5.22); White Blood Count 8.41 K/ul (4.8-10.8)
--- NOTE | 2022-02-25 15:13 | XRay Report ---
KUB HISTORY: constipation COMPARISON: None. FINDINGS: A few mildly dilated gas-filled loops of small bowel within the upper abdomen measuring up to 3.6 cm in diameter. There is moderate well-formed stool seen throughout the colon and rectum. No renal calculi. No ureteral calculi. No pneumoperitoneum or pneumatosis. IMPRESSION: 1. Moderate well-formed stool seen throughout the colon. 2. A few mildly dilated gas-filled loops of small bowel within the upper abdomen. This is nonspecific but could be due to ileus or partial small bowel obstruction. ACT 112: Negative or not required by law. Electronically signed by: Steve Orlando M.D. 02/25/2022 3:12 PM
[2022-02-25 15:27] LABS: Albumin Globulin Ratio 1.7 (0.9-2); Albumin Level 3.9 gm/dl (3.4-5.0); BUN Creatinine Ratio 26.4 (10-20); Bilirubin,Total 0.6 mg/dl (0.2-1.0); Calcium 10.4 mg/dl (8.5-10.1); Est GFR (African American) 87.3 ml/min; Est GFR (Non-African American) 75.3 ml/min; Globulin 2.3 gm/dl (2.5-4.0); Total Protein 6.2 gm/dl (6.0-8.3)
[2022-02-25] MEDS ORDERED: ONDANSETRON INJ 2 MG/ML 2 ML VIAL IV STA (15:37)
[2022-02-25] MEDS ORDERED: MoRPHine SULFATE 4 MG/ML 1 ML CARP\\VIAL IV STA (15:37)
[2022-02-25] MEDS ORDERED: SODIUM CHLORIDE 0.9% 1000ML 500 ML IV ONE (15:37)
[2022-02-25] MEDS: ONDANSETRON INJ 2 MG/ML 2 ML VIAL IV STA ×2 (15:50→15:51)
--- NOTE | 2022-02-25 15:57 | Emergency Department Note ---
Impression & Plan Hernia, internal, Partial obstruction of small intestine, Abdominal pain ED Provider Note NAME: ARIANA CARABALLO AGE: 86 SEX: F : 1935 ARRIVES VIA: Walk-In INFORMANT: Patient, ED PROVIDER(S): Jaime Louis DO CHIEF COMPLAINT: Abdominal pain HPI: The patient is an 86-year-old female who presented to the emergency departm ent for an evaluation of abdominal pain. The patient describes abdominal pain which is epigastric and periumbilical nature. She states pain does go up to her left side. She did have a fall recently where she landed on her left side and struck her head. She states that she has no headache and does not take blood thinners. There is no loss of consciousness. She states she does still have some left-sided chest pain which is reproducible with palpation. She denies having any dysuria or frequency. She denies having any back pain. She did note some constipation over the last 24 hours. She was unable to get in with her family doctor so she presented to the emergency department. She has been compliant with her outpatient medication. She does have a history of peptic ulcer disease that did require surgical intervention 1 time. She is not allowed to take NSAIDs. She is compliant with her proton pump inhibitor. ROS: See above HPI for pertinent positives & negatives. A total of 10 systems reviewed and were otherwise negative. PAST MEDICAL HISTORY: See Below PAST SURGICAL HISTORY: See Below FAMILY HISTORY: See Below SOCIAL HISTORY: See Below HOME MEDICATIONS: See Below ALLERGIES: See Below VITALS: See Below PHYSICAL EXAMINATION: GENERAL: Patient is awake alert in no acute distress patient is resting comfortably and showing no signs of anxiety EYES: The conjunctivae are clear. The pupils are round and reactive. EARS, NOSE, MOUTH AND THROAT: The nose is without any evidence of any deformity. Mucous membranes are moist. Tongue is midline. NECK: The neck is nontender and supple. RESPIRATORY: Normal respiratory effort is noted there is no evidence of wheezing rhonchi or rales CARDIOVASCULAR: Regular rate and rhythm was noted auscultation. Systolic murmur was suggested. GASTROINTESTINAL: The abdomen was soft and mildly distended. There is epigastric periumbilical and left upper quadrant tenderness to palpation but no guarding or rigidity. MUSCULOSKELETAL/EXTREMITIES: There is no evidence of gross deformity full range of motion is noted in the hips and shoulders. There is palpable tenderness over the left chest wall. There is no crepitus. SKIN: There is no obvious evidence of any rash. There are no petechiae, pallor or cyanosis noted. NEUROLOGIC: Patient is awake alert and oriented x3. MEDICAL DECISION MAKING: The patient is an 86-year-old female who presented to the emergency department for an evaluation of abdominal pain. The patient did have reproducible upper abdominal pain on physical exam. The patient was treated with IV fluids and IV pain medication in the emergency department. She was also treated with antiemetics and IV antibiotics. I discussed patient's laboratory and radiographic studies with her. She was found have signs of an internal hernia with a partial small bowel obstruction. She was reevaluated multiple times. She was feeling much better on subsequent reevaluation. I discussed her condition with the on-call general surgeon. I also discussed her case with the on-call [facility] hospitalist. They have agreed to evaluate the patient in the emergency department for further management and disposition. Triage Nursing notes reviewed. Prior medical records reviewed Vital Signs: reviewed and remarkable for elevated blood pressure. Differential diagnosis: Etiologies such as appendicitis, diverticulitis, obstruction, inflammatory bowel disease, renal colic, PUD, biliary pathology, pancreatitis, mesenteric ischemia, aortic pathology, infections, genitourinary, UTI, perforated viscus, as well as others were entertained. ER treatment provided: See below Diagnostics interpreted by me: ECG: EKG was obtained in the emergency department. My interpretation is sinus rhythm at 74 bpm. There is no ectopy. There is no acute ST segment abnormalities noted. LVH was suggested by voltage criteria. This was compared to a tracing from May 03, 2019. No changes were noted. Cardiac Monitoring: An order was placed for continuous cardiac monitoring. The monitor shows a rate of 68 bpm with sinus rhythm. Laboratory studies: As stated above and show below. Imaging studies: See below Consultation(s): I discussed this case with Dr. Diamond who is on-call for general surgery. I discussed this case with Dr Littlejohn who is on-call for the [facility] hospitalist group. Past Med/Surg History Medical History Anosmia Aortic valve sclerosis Barretts esophagus Deaf left ear GERD (gastroesophageal reflux disease) 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 She is managed with esomeprazole 40mg daily + ranitidine 300mg QHS. Glaucoma Heart failure with preserved ejection fraction History of atrial fibrillation HAD POST OP EPISODE - CURRENTLY CONTROLLED BY MEDS History of breast cancer Followed by Cancer care, history of infiltrating ductal carcinoma of the right breast, initially diagnosed (04/24). She had a partial mastectomy and sentinel node biopsy (05/25). She is followed by oncology. History of GI bleed Remote hx, possibly d/t nsaids History of skin cancer Macular degeneration Osteoarthritis b/l shoulder replacemnt, b/l knee pain Osteoporosis Paroxysmal atrial tachycardia Paroxysmal ventricular tachycardia Peripheral neuropathy Postoperative atrial fibrillation Venous insufficiency Surgical History Adverse anesthesia outcome " ANESTHESIA NERVE BLOCK DID NOT WORK" History of arthroplasty of left shoulder History of esophagogastroduodenoscopy (EGD) History of gastric polyp s/p resection History of knee replacement procedure of left knee History of knee replacement procedure of right knee Post op developed pseudomonas - had to have revision History of total replacement of right shoulder joint Hx of bilateral cataract extraction Hx of colonoscopy Hx of hernia repair Hx of partial mastectomy right Hx of tonsillectomy Family History Mother Family history of diabetes mellitus (DM) Breast cancer Hypertension Diabetes Father Myocardial infarction Hypertension Arthritis Unknown Alzheimer disease Denies family history of Ovarian cancer Prostate cancer Lung cancer Colorectal cancer Social History Smoking Status: Never smoker Second Hand Exposure: No; Hx Alcohol Use: Yes Alcohol type: wine Alcohol Intake Frequency: Monthly or Less Alcohol Intake Frequency Comment: social Hx Substance Use: No Preferred Language: Kinyarwanda Communication Ability: Effective Visual Impairment: Limited Hearing Ability: Hard of Hearing 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 Beliefs That Will Affect Care: None marital status: Current Living Situation: Spouse current occupational status: retired current occupation: Owns a business How many Children do You have: 2 Feels Safe at Home: Yes Childhood Exposure to Second-Hand Smoke: No caffeine: Yes (coffee ) Dental Care, Regularly: Yes Physical Activity Frequency: Daily Physical Activity Frequency Comment: walks alot steps, also gardens every morning Seatbelt Use: sometimes Sunscreen Use: Yes Assistive Devices: Walker Allergies Allergies Allergy/AdvReac Type Severity Reaction Status Date / Time acetaminophen [From Percocet] Allergy Mild itching Verified 02/25/22 17:26 oxycodone [From Percocet] Allergy Mild itching Verified 02/25/22 17:26 Penicillins Allergy Mild Rash Verified 02/25/22 17:26 furosemide AdvReac Intermediate Hypotension Verified 02/25/22 17:26 aspirin AdvReac Unknown unknown Verified 02/25/22 17:26 reaction- ? related to ulcer hx celecoxib AdvReac Unknown ulcer hx Verified 02/25/22 17:26 NSAIDS (Non-Steroidal AdvReac Unknown unknown Verified 02/25/22 17:26 Anti-Inflamma reaction- ? related to ulcer hx Home Meds Home Medications Medication Instructions Recorded Confirmed [id number] acid 0.4 1 tab PO QAM 05/05/18 02/25/22 mg-lycopene 300 mcg-lutein 250 mcg tablet (Centrum Silver) vit C 250 mg-vit E 90 mg-zinc 40 1 tab PO BID 05/05/18 02/25/22 mg-copper 1 qm-egcgff-nhqjvf capsule (PreserVision AREDS-2) calcium carbonate 500 mg-vitamin 1 tab PO BID 12/18/18 02/25/22 D3 5 mcg (200 unit) tablet (Calcium 500 + D) denosumab 60 mg/mL subcutaneous 60 mg subcut Q6MO 03/24/19 02/25/22 syringe (Prolia) cholecalciferol (vitamin D3) 50 50 mcg PO QPM 04/19/19 02/25/22 mcg (2,000 unit) capsule (Vitamin D3) ferrous sulfate 325 mg (65 mg 65 mg PO QAM 04/19/19 02/25/22 iron) tablet (iron) acetaminophen 500 mg capsule 500 mg PO BID PRN Fever Or Pain 09/15/19 02/25/22 tafluprost (PF) 0.0015 % eye drops 1 drp ophthalmic (eye) HS 09/21/20 02/25/22 in a dropperette (Zioptan (PF)) Previous Rx's Medication Instructions Recorded furosemide 40 mg tablet 40 mg PO DAILY #90 tabs 02/26/21 metoprolol succinate 25 mg 25 mg PO QAM #30 tabs 11/05/21 tablet,extended release 24 hr omeprazole 40 mg capsule,delayed 40 mg PO BID #180 caps 12/06/21 release methylprednisolone 4 mg tablets in 4 mg PO DAILY #21 ea 02/19/22 a dose pack (Medrol (Gelacio)) Results & Data (ED) Vital Signs Vital Signs - 24 hr 02/25/22 14:21 02/25/22 15:57 02/25/22 17:49 Temperature 36.7 C Temperature Source Temporal Artery Scan Pulse Rate 85 Pulse Rate [Apical] 67 68 Pulse Rhythm [Apical] Regular Regular Pulse Strength [Apical] Normal Normal Respiratory Rate 16 18 18 Respiratory Effort / Characteristics Non-Labored Spontaneous Non-Labored Non-Labored Respiratory Depth Normal Normal Normal Respiratory Pattern Regular Regular Regular Blood Pressure 156/91 H Blood Pressure [Left Arm] 139/89 152/71 H Blood Pressure Mean 112 Blood Pressure Mean [Left Arm] 105 98 Blood Pressure Position Sitting Pulse Oximetry 94 94 98 Oxygen Delivery Method Room Air Nasal Cannula Nasal Cannula Oxygen Flow Rate 2 2 Sepsis Recent Fever Within 48 Hours No Sepsis New/Unexplained Change in Mental Status No Sepsis Action Taken by Nursing No Action Required Home Medications Current Medication List: was personally reviewed by me Laboratory Data Attestation: I reviewed the patient's lab results. Result diagrams: 02/25/22 14:49 02/25/22 14:49 Lab Results 02/25/22 02/25/22 02/25/22 Range/Units 14:49 14:49 14:49 WBC 8.41 (4.8-10.8) K/ul RBC 4.25 (3.93-5.22) M/uL Hgb 12.4 (12.0-16.0) g/dl Hct 37.6 (34.1-44.9) % MCV 88.5 (80.0-100.0) fL MCH 29.2 (25.0-34.0) pg MCHC 33.0 (32.0-36.0) g/dL RDW Std Deviation 45.6 (36.4-46.3) fL RDW Coeff of Rubina 14.2 (11.5-14.5) % Plt Count 331 (130-400) K/uL MPV 9.2 L (9.4-12.3) fL Immature Gran % (Auto) 0.4 % Neut % (Auto) 80.7 % Lymph % (Auto) 12.2 % [place] % (Auto) 5.6 % Eos % (Auto) 0.7 % Baso % (Auto) 0.4 % Neut # (Auto) 6.79 H (1.4-6.5) K/uL Lymph # (Auto) 1.03 L (1.2-3.4) K/uL [place] # (Auto) 0.47 (0.24-0.82) K/uL Eos # (Auto) 0.06 (0-0.50) K/uL Baso # (Auto) 0.03 (0-0.2) K/uL Immature Gran # (Auto) 0.03 H (0.00-0.02) K/uL Sodium 137 (136-145) mmol/L Potassium 4.0 (3.5-5.1) mmol/L Chloride 101 (98-107) mmol/L Carbon Dioxide 29 (21-32) mmol/L Anion Gap 7 (3-11) BUN 19 (6-23) mg/dl Creatinine 0.72 (0.6-1.2) mg/dl Est Cr Clr Drug Dosing 46.0 ml/min Est GFR ( Amer) 87.3 ml/min Est GFR (Non-Af Amer) 75.3 ml/min BUN/Creatinine Ratio 26.4 H (10-20) Glucose 122 H (70-99(Fasting)) mg/dl Calcium 10.4 H (8.5-10.1) mg/dl Total Bilirubin 0.6 (0.2-1.0) mg/dl AST 16 (13-39) U/L ALT 15 (7-52) U/L Alkaline Phosphatase 104 (34-104) U/L Troponin I High Sens 6.9 (0-14) pg/ml Total Protein 6.2 (6.0-8.3) gm/dl Albumin 3.9 (3.4-5.0) gm/dl Globulin 2.3 L (2.5-4.0) gm/dl Albumin/Globulin Ratio 1.7 (0.9-2) Lipase 9 L (11-82) U/L SARS-CoV-2, RNA, NAAT (NEGATIVE) 02/25/22 Range/Units 17:37 WBC (4.8-10.8) K/ul RBC (3.93-5.22) M/uL Hgb (12.0-16.0) g/dl Hct (34.1-44.9) % MCV (80.0-100.0) fL MCH (25.0-34.0) pg MCHC (32.0-36.0) g/dL RDW Std Deviation (36.4-46.3) fL RDW Coeff of Rubina (11.5-14.5) % Plt Count (130-400) K/uL MPV (9.4-12.3) fL Immature Gran % (Auto) % Neut % (Auto) % Lymph % (Auto) % [place] % (Auto) % Eos % (Auto) % Baso % (Auto) % Neut # (Auto) (1.4-6.5) K/uL Lymph # (Auto) (1.2-3.4) K/uL [place] # (Auto) (0.24-0.82) K/uL Eos # (Auto) (0-0.50) K/uL Baso # (Auto) (0-0.2) K/uL Immature Gran # (Auto) (0.00-0.02) K/uL Sodium (136-145) mmol/L Potassium (3.5-5.1) mmol/L Chloride (98-107) mmol/L Carbon Dioxide (21-32) mmol/L Anion Gap (3-11) BUN (6-23) mg/dl Creatinine (0.6-1.2) mg/dl Est Cr Clr Drug Dosing ml/min Est GFR ( Amer) ml/min Est GFR (Non-Af Amer) ml/min BUN/Creatinine Ratio (10-20) Glucose (70-99(Fasting)) mg/dl Calcium (8.5-10.1) mg/dl Total Bilirubin (0.2-1.0) mg/dl AST (13-39) U/L ALT (7-52) U/L Alkaline Phosphatase (34-104) U/L Troponin I High Sens (0-14) pg/ml Total Protein (6.0-8.3) gm/dl Albumin (3.4-5.0) gm/dl Globulin (2.5-4.0) gm/dl Albumin/Globulin Ratio (0.9-2) Lipase (11-82) U/L SARS-CoV-2, RNA, NAAT NEGATIVE (NEGATIVE) Administered Medications Discontinued Medications Sodium Chloride (Nss) 500 mls @ 999 mls/hr IV .Q31M STA Stop: 02/25/22 14:56 Last Infusion: 02/25/22 16:38 Dose: 0 mls/hr Documented By: Admin: 02/25/22 15:50 Dose: 999 mls/hr Documented By: RSL Sodium Chloride (Nss 1000ml) 500 mls @ 999 mls/hr IV .Q31M ONE Stop: 02/25/22 16:07 Last Admin: 02/25/22 17:54 Dose: Not Given Documented By: RSEdwin Cefepime HCl (Maxipime) 2,000 mg in 20 mls @ 5 mls/min IV NOW STA; Protocol Stop: 02/25/22 16:56 Last Admin: 02/25/22 17:44 Dose: 5 mls/min Documented By: RSEdwin Ioversol (Optiray 350 100ml) 82 ml IV ONCE ONE Stop: 02/25/22 16:27 Last Admin: 02/25/22 16:26 Dose: 82 ml Documented By: COMPA Morphine Sulfate (Morphine Sulfate 4 Mg/Ml 1 Ml Carp\\Vial) 4 mg IV NOW STA Stop: 02/25/22 15:38 Last Admin: 02/25/22 15:51 Dose: 4 mg Documented By: RSEdwin Ondansetron HCl (Ondansetron Inj 2 Mg/Ml 2 Ml Vial) 4 mg IV NOW STA Stop: 02/25/22 14:27 Last Admin: 02/25/22 15:51 Dose: 4 mg Documented By: Admin: 02/25/22 15:50 Dose: Not Given Documented By: RSEdwin Ondansetron HCl (Ondansetron Inj 2 Mg/Ml 2 Ml Vial) 4 mg IV NOW STA Stop: 02/25/22 15:38 Last Admin: 02/25/22 16:13 Dose: 4 mg Documented By: RSEdwin Imaging Data Radiologist's Impression: KUB X-Ray 02/25/22 14:26 KUB HISTORY: constipation COMPARISON: None. FINDINGS: A few mildly dilated gas-filled loops of small bowel within the upper abdomen measuring up to 3.6 cm in diameter. There is moderate well-formed stool seen throughout the colon and rectum. No renal calculi. No ureteral calculi. No pneumoperitoneum or pneumatosis. IMPRESSION: 1. Moderate well-formed stool seen throughout the colon. 2. A few mildly dilated gas-filled loops of small bowel within the upper abdomen. This is nonspecific but could be due to ileus or partial small bowel obstruction. ACT 112: Negative or not required by law. Electronically signed by: Steve Orlando M.D. 02/25/2022 3:12 PM Abdomen/Pelvis CT 02/25/22 15:38 CT OF THE ABDOMEN AND PELVIS WITH CONTRAST CLINICAL HISTORY: Upper abdominal pain. COMPARISON STUDY: CT of the abdomen and pelvis June 22, 2015. Abdominal ultrasound October 03, 2016. KUB performed earlier today. TECHNIQUE: Following IV administration of 82 mL of Optiray, axial images of the abdomen and pelvis were obtained from the lung bases to the proximal femurs. Images were reviewed in the axial, sagittal, and coronal planes. IV contrast was administered without complication. Automated exposure control was utilized for the study. A dose lowering technique was utilized adhering to the principles of ALARA. CT DOSE: 395.84 mGy.cm FINDINGS: A large hiatal hernia with partially intrathoracic stomach is noted. Trace ascites within the hernia sac is noted. No pneumatosis, free air or portal venous gas is present. Liver, spleen, adrenal glands and pancreas are unremarkable. The gallbladder is mildly distended. There is no pericholecystic stranding. Several renal cysts are present. There is no hydronephrosis. Diffuse mesenteric stranding is noted. A small amount of abdominal and pelvic ascites is present. Multiple loops of mildly dilated fluid-filled small bowel within left abdomen are present. Multiple transition points are noted within the left mid abdomen. There is associated caliber change of the mesenteric vessels. No fluid collection is present. There is colonic diverticulosis without evidence for acute diverticulitis. There is no evidence for a large bowel obstruction. No acute fracture or suspicious lesion within the visualized skeletal structures is present. IMPRESSION: 1. Mildly dilated fluid-filled proximal small bowel with multiple transition points within the left mid abdomen with associated mesenteric swirling and caliber change of the mesenteric vessels. Although not definitive, the findings raise the possibility of an internal hernia with associated small bowel obstruction. Associated mesenteric stranding and a small amount of ascites. Surgical consultation is recommended. Findings discussed with Dr. Louis at time of dictation. 2. Large hiatal hernia with partially intrathoracic stomach. 3. Colonic diverticulosis. No evidence for acute diverticulitis. 4. Mildly distended gallbladder. No pericholecystic stranding. ACT 112: Negative or not required by law. Electronically signed by: Calos Panda M.D. 02/25/2022 4:55 PM Discharge Plan Visit Data Chief Complaint: Abdominal Pain Stated Complaint: ADOMINAL PAIN, CONSTIPATION, NAUSEA ED Provider: Jaime Louis Discharge Problem: Hernia, internal, Partial obstruction of small intestine, Abdominal pain Patient Disposition: Being Evaluated by Hospitalist Forms Stand Alone Forms: My [facility] [place] Prescriptions Prescriptions: No Action furosemide 40 mg tablet 40 mg PO DAILY Qty: 90 3RF metoprolol succinate 25 mg tablet extended release 24 hr 25 mg PO QAM Qty: 30 1RF omeprazole 40 mg capsule,delayed release(DR/EC) 40 mg PO BID Qty: 180 3RF acetaminophen 500 mg capsule 500 mg PO BID PRN (Reason: Fever Or Pain) Zioptan (PF) 0.0015 % dropperette 1 drp ophthalmic (eye) HS methylprednisolone [Medrol (Gelacio)] 4 mg tablets,dose pack 4 mg PO DAILY Qty: 21 0RF Rx Instructions: take 6 tabs x 1 d, 5 tab x1 , 4 tab x1 day, 3 tab x1 d, 2 tabs x 1 day, 1 tab x1 day ferrous sulfate [iron] 325 mg (65 mg iron) Tablet 65 mg PO QAM cholecalciferol (vitamin D3) [Vitamin D3] 50 mcg (2,000 unit) Capsule 50 mcg PO QPM Centrum Silver 0.4-300-250 mg-mcg-mcg Tablet 1 tab PO QAM PreserVision AREDS-2 [id number]-mg Capsule 1 tab PO BID calcium carbonate-vitamin D3 [Calcium 500 + D] 500 mg(1,250mg) -200 unit tablet 1 tab PO BID Prolia 60 mg/mL syringe 60 mg subcut Q6MO Referrals Referrals: Reji Vital DO [Primary Care Provider] -
[2022-02-25] MEDS ORDERED: OPTIRAY 350 100ml IV ONE (16:26)
[2022-02-25] MEDS ORDERED: CEFEPIME 2,000 MG/20 ML VIAL IV STA (16:53)
--- NOTE | 2022-02-25 16:57 | CT Scan Report ---
CT OF THE ABDOMEN AND PELVIS WITH CONTRAST CLINICAL HISTORY: Upper abdominal pain. COMPARISON STUDY: CT of the abdomen and pelvis June 22, 2015. Abdominal ultrasound October 03, 2016. K UB performed earlier today. TECHNIQUE: Following IV administration of 82 mL of Optiray, axial images of the abdomen and pelvis we re obtained from the lung bases to the proximal femurs. Images were reviewed in the axial, sagittal, and coronal planes. IV contrast was administered without complication. Automated exposure control wa s utilized for the study. A dose lowering technique was utilized adhering to the principles of ALARA . CT DOSE: 395.84 mGy.cm FINDINGS: A large hiatal hernia with partially intrathoracic stomach is noted. Trace ascites within t he hernia sac is noted. No pneumatosis, free air or portal venous gas is present. Liver, spleen, adre nal glands and pancreas are unremarkable. The gallbladder is mildly distended. There is no pericholec ystic stranding. Several renal cysts are present. There is no hydronephrosis. Diffuse mesenteric stra nding is noted. A small amount of abdominal and pelvic ascites is present. Multiple loops of mildly d ilated fluid-filled small bowel within left abdomen are present. Multiple transition points are noted within the left mid abdomen. There is associated caliber change of the mesenteric vessels. No fluid collection is present. There is colonic diverticulosis without evidence for acute diverticulitis. The re is no evidence for a large bowel obstruction. No acute fracture or suspicious lesion within the vi sualized skeletal structures is present. IMPRESSION: 1. Mildly dilated fluid-filled proximal small bowel with multiple transition points within the left m id abdomen with associated mesenteric swirling and caliber change of the mesenteric vessels. Although not definitive, the findings raise the possibility of an internal hernia with associated small bowel obstruction. Associated mesenteric stranding and a small amount of ascites. Surgical consultation is recommended. Findings discussed with Dr. Louis at time of dictation. 2. Large hiatal hernia with partially intrathoracic stomach. 3. Colonic diverticulosis. No evidence for acute diverticulitis. 4. Mildly distended gallbladder. No pericholecystic stranding. ACT 112: Negative or not required by law. Electronically signed by: Calos Panda M.D. 02/25/2022 4:55 PM
--- NOTE | 2022-02-25 17:49 | Surgery Consultation ---
Date of Consultation February 25, 2022 Assessment & Plan (1) Partial small bowel obstruction: I do not feel the patient requires urgent surgical intervention She has had no vomiting therefore we will hold off on NG tube Treat her with analgesics and antiemetics as needed Bowel rest with n.p.o. tonight possible ice tomorrow Continue to monitor her progress, check a KUB in the morning Possibly consider contrast study with 3 CT at some point Monitor laboratories History of Present Illness History of Present Illness 86-year-old female presented emergency room with persistent abdominal pain She had a very large meal last night and then began to have some abdominal pain which persisted off and on She has had no vomiting but very mild nausea She underwent CAT scan examination which shows some mildly dilated small bowel to 3.7 cm left side of abdomen Some mild swirling of the mesentery with potential for internal hernia and partial obstruction Her white count is normal She did have an umbilical hernia repair in the past and apparently has some mesh placed Has a large hiatal hernia Allergies Allergy/AdvReac Type Severity Reaction Status Date / Time acetaminophen [From Percocet] Allergy Mild itching Verified 02/25/22 17:26 oxycodone [From Percocet] Allergy Mild itching Verified 02/25/22 17:26 Penicillins Allergy Mild Rash Verified 02/25/22 17:26 furosemide AdvReac Intermediate Hypotension Verified 02/25/22 17:26 aspirin AdvReac Unknown unknown Verified 02/25/22 17:26 reaction- ? related to ulcer hx celecoxib AdvReac Unknown ulcer hx Verified 02/25/22 17:26 NSAIDS (Non-Steroidal AdvReac Unknown unknown Verified 02/25/22 17:26 Anti-Inflamma reaction- ? related to ulcer hx Home Medications Medication Instructions Recorded Confirmed Type dteafdje-rrq-jpcmo acid 0.4 1 tab PO QAM 05/05/18 02/25/22 History mg-lycopene 300 mcg-lutein 250 mcg tablet (Centrum Silver) vit C 250 mg-vit E 90 mg-zinc 40 1 tab PO BID 05/05/18 02/25/22 History mg-copper 1 hp-ujodzx-bkljyl capsule (PreserVision AREDS-2) calcium carbonate 500 mg-vitamin 1 tab PO BID 12/18/18 02/25/22 History D3 5 mcg (200 unit) tablet (Calcium 500 + D) denosumab 60 mg/mL subcutaneous 60 mg subcut Q6MO 12/11/19 11/14/22 History syringe (Prolia) cholecalciferol (vitamin D3) 50 50 mcg PO QPM 04/19/19 02/25/22 History mcg (2,000 unit) capsule (Vitamin D3) ferrous sulfate 325 mg (65 mg 65 mg PO QAM 04/19/19 02/25/22 History iron) tablet (iron) acetaminophen 500 mg capsule 500 mg PO BID PRN Fever Or Pain 09/15/19 02/25/22 History tafluprost (PF) 0.0015 % eye drops 1 drp ophthalmic (eye) HS 09/21/20 02/25/22 History in a dropperette (Zioptan (PF)) furosemide 40 mg tablet 40 mg PO DAILY #90 tabs 02/26/21 02/25/22 Rx metoprolol succinate 25 mg 25 mg PO QAM #30 tabs 11/05/21 02/25/22 Rx tablet,extended release 24 hr omeprazole 40 mg capsule,delayed 40 mg PO BID #180 caps 12/06/21 02/25/22 Rx release methylprednisolone 4 mg tablets in 4 mg PO DAILY #21 ea 02/19/22 02/25/22 Rx a dose pack (Medrol (Gelacio)) Patient History Medical History Anosmia Aortic valve sclerosis Barretts esophagus Deaf left ear GERD (gastroesophageal reflux disease) 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 She is managed with esomeprazole 40mg daily + ranitidine 300mg QHS. Glaucoma Heart failure with preserved ejection fraction History of atrial fibrillation HAD POST OP EPISODE - CURRENTLY CONTROLLED BY MEDS History of breast cancer Followed by Cancer care, history of infiltrating ductal carcinoma of the right breast, initially diagnosed (04/24). She had a partial mastectomy and sentinel node biopsy (05/25). She is followed by oncology. History of GI bleed Remote hx, possibly d/t nsaids History of skin cancer Macular degeneration Osteoarthritis b/l shoulder replacemnt, b/l knee pain Osteoporosis Paroxysmal atrial tachycardia Paroxysmal ventricular tachycardia Peripheral neuropathy Postoperative atrial fibrillation Venous insufficiency Surgical History Adverse anesthesia outcome " ANESTHESIA NERVE BLOCK DID NOT WORK" History of arthroplasty of left shoulder History of esophagogastroduodenoscopy (EGD) History of gastric polyp s/p resection History of knee replacement procedure of left knee History of knee replacement procedure of right knee Post op developed pseudomonas - had to have revision History of total replacement of right shoulder joint Hx of bilateral cataract extraction Hx of colonoscopy Hx of hernia repair Hx of partial mastectomy right Hx of tonsillectomy Family History Mother Family history of diabetes mellitus (DM) Breast cancer Hypertension Diabetes Father Myocardial infarction Hypertension Arthritis Unknown Alzheimer disease Denies family history of Ovarian cancer Prostate cancer Lung cancer Colorectal cancer Social History Smoking Status: Never smoker Second Hand Exposure: No; Hx Alcohol Use: Yes Alcohol type: wine Alcohol Intake Frequency: Monthly or Less Alcohol Intake Frequency Comment: social Hx Substance Use: No Preferred Language: Kuwaiti Communication Ability: Effective Visual Impairment: Limited Hearing Ability: Hard of Hearing Security Orderly Required: No Beliefs That Will Affect Care: None marital status: Current Living Situation: Spouse current occupational status: retired current occupation: Owns a business How many Children do You have: 2 Feels Safe at Home: Yes Childhood Exposure to Second-Hand Smoke: No caffeine: Yes (coffee ) Dental Care, Regularly: Yes Physical Activity Frequency: Daily Physical Activity Frequency Comment: walks alot steps, also gardens every morning Seatbelt Use: sometimes Sunscreen Use: Yes Assistive Devices: Walker Review of Systems Review of Systems: All systems reviewed & are unremarkable except as noted in HPI & below Physical Exam Physical Exam: Patient is awake and alert with very upbeat affect She is in no distress-she said the pain has improved with some morphine Her abdomen is very mildly distended, she does have some bowel sounds She has no peritoneal irritation and has very mild discomfort to deep palpation Constitutional: well developed and well nourished; no acute distress Eyes: + anicteric sclerae Respiratory: normal respiratory effort; no respiratory distress Cardiovascular: Rate/Rhythm: regular rate Gastrointestinal (Abdomen): Inspection/Auscultation: + abdomen distended (Mild) See above Musculoskeletal: Head/Neck/Chest: head atraumatic Skin: no rashes, warm and dry Neurologic: awake Psychiatric: Orientation: alert Results & Data ([place]) Vital Signs (Past 12 Hours) Vital Signs Temp Pulse Pulse Resp BP BP Pulse Ox 02/25/22 15:57 67 18 139/89 94 02/25/22 14:21 36.7 C 85 16 156/91 H 94 O2 Del Method O2 Flow Rate 02/25/22 15:57 Nasal Cannula 2 02/25/22 14:21 Room Air Laboratory Results I reviewed her laboratories Diagnostic Findings I reviewed her CAT scan PG Care Time/CCT Total # of Minutes Spent Total Time Spent with Patient: Total time spent is greater than 50% in coordination of care (as documented) at patient's floor/unit and/or counseling patient: Coding Level of Care Code 46553 Initial Inpt Care Lvl 3 Diagnoses Partial small bowel obstruction K56.600
--- NOTE | 2022-02-25 18:08 | History & Physical Report ---
Date of Service February 25, 2022 Assessment & Plan (1) Partial small bowel obstruction: Plan: Partial small bowel obstruction CT:1. Mildly dilated fluid-filled proximal small bowel with multiple transition points within the left mid abdomen with associated mesenteric swirling and caliber change of the mesenteric vessels. Although not definitive, the findings raise the possibility of an internal hernia with associated small bowel obstruction. Associated mesenteric stranding and a small amount of ascites. Surgical consultation is recommended. Findings discussed with Dr. Louis at time of dictation. 2. Large hiatal hernia with partially intrathoracic stomach. 3. Colonic diverticulosis. No evidence for acute diverticulitis. 4. Mildly distended gallbladder. No pericholecystic stranding. - KUB: 1. Moderate well-formed stool seen throughout the colon. 2. A few mildly dilated gas-filled loops of small bowel within the upper abdomen. This is nonspecific but could be due to ileus or partial small bowel obstruction. Surgery consulted. No urgent surgical intervention. Defer NG with no vomiting/nausea. Continue n.p.o., analgesics, antiemetics, fluids. Recommend KUB in the morning, pending reevaluation consider CT with oral contrast. Appreciate recommendations DuBoisn.p.o. LR 125 cc/h Zofran Morphine as needed GERD Omeprazole converted to Protonix Chronic venous stasis Continue home Lasix 40 mg daily Continue venous stasis treatments, elevate legs 3 times daily, wraps as needed Recent fall with rib pain Placed on a Medrol taper as outpatient due to inability to tolerate NSAIDs Topical Voltaren Lidoderm patch as needed No wheezing Defer taper at this time Atrial tachycardia Patient initially worked up for A. fib, notes that she did not actually have A. fib and was not recommended to be on anticoagulation Continue metoprolol 25 mg daily Normal sinus rate on admission, no indication for telemetry at this time DVT prophylaxis: Diet: N.p.o. Disposition: Medical with telemetry due to need to convert metoprolol to IV (2) Iron deficiency anemia: (3) Aortic valve sclerosis: (4) Heart failure with preserved ejection fraction: (5) History of breast cancer: (6) GERD (gastroesophageal reflux disease): History of Present Illness Primary Care Provider: Reji Vital DO Lori Clemons is a 86-year-old female with a past medical history of iron deficiency anemia, venous insufficiency, breast cancer, GERD, and peripheral neuropathy presents with abdominal pain and is found to have a potential SBO. Case was reviewed with surgery who noted partial small bowel obstruction, no urgent surgical intervention required, no nausea and can hold off on NG tube. Analgesics, antiemetics, bowel rest, medical management at this time. Lori is seen at the beside with her . Last friday had a fall when a chair collapsed and hit her L side and was seen for rib pain. No fxrs, was pl aced on a pred taper and discharged. Pain was improving and was taking deep breaths to prevent atelactasis. Feeling of abdominal 'tightness' started 3 days ago. Has felt like a slowly tightening belt has been on her abdomen. Last night had dinner with friends and 'had a huge dinner with two friends who were state game warden.' AFter that developed low abdominal pain, stabbing and shooting pain in her belly all night. Last BM 02/24/22 in the morning, usually a morning BM regular person. No BM this morning .No melena/BRBPR. Abdominal Sx: unmbilical hernia repair 20 years ago with mesh. Denies other abdominal surgeries. Osteoporosis - On Prolia - reportedly managed by [facility]. We'll request these records. Shoulder Pain - Following with Dr. Quintanilla [facility]. They offered steroids but she declined d/t side effects. HFpEF/Aortic sclerosis - No issues with swelling, orthopnea, CP, irregular heart beats. No issues with dizziness r/t metoprolol and lasix 40mg QD. Peripheral neuropathy - No current concerns with this. Not on any medications. Continue to f/u clinically. GERD - Well controlled on Omeprazole 40mg. No dysphagia, N/V, dyspepsia, melena or hematochezia. Will not taper off d/t h/o recurrent ulcers and Parks's Esophagitis. Last EGD 2011 - she declines repeat EGD d/t advanced age. We'll update vitamin D, CBC and CMP today and continue to monitor clinically. H/O Breast CA - Follows with [facility] - No recent records. We'll request these. Venous insufficiency - Mild in severity. No current issues with swelling or ulcerations. No compression sleeves. Continue to f/u clinically. Iron deficiency anemia - She doesn't recall diagnosis. On ferrous sulfate 65mg QD. Last EGD 2011 - consistent with Parks's esophagitis. No dysplasia at that time. Underwent Colonoscopy 2015 - Sigmoid polyp x 1 consistent with tubular adenoma. She declines to f/u with Colonoscopy and EGD d/t advanced age. No dysphagia, weight loss, melena/hematochezia or changes in stools. We'll updated CBC, Ferritin, Transferrin Sat, TIBC and Serum iron and f/u with the results and continue to monitor clinically. Medical History: Reviewed Medications: Reviewed Surgical History: Reviewed Allergies: Reviewed Social History: No tobacco products, rare social glass of wine Code Status: Allergies Allergy/AdvReac Type Severity Reaction Status Date / Time acetaminophen [From Percocet] Allergy Mild itching Verified 02/25/22 17:26 oxycodone [From Percocet] Allergy Mild itching Verified 02/25/22 17:26 Penicillins Allergy Mild Rash Verified 02/25/22 17:26 furosemide AdvReac Intermediate Hypotension Verified 02/25/22 17:26 aspirin AdvReac Unknown unknown Verified 02/25/22 17:26 reaction- ? related to ulcer hx celecoxib AdvReac Unknown ulcer hx Verified 02/25/22 17:26 NSAIDS (Non-Steroidal AdvReac Unknown unknown Verified 02/25/22 17:26 Anti-Inflamma reaction- ? related to ulcer hx Home Medications Medication Instructions Recorded Confirmed Type hqdzaqxu-iri-noedr acid 0.4 1 tab PO QAM 05/05/18 02/25/22 History mg-lycopene 300 mcg-lutein 250 mcg tablet (Centrum Silver) vit C 250 mg-vit E 90 mg-zinc 40 1 tab PO BID 05/05/18 02/25/22 History mg-copper 1 zn-cyebni-qyowjr capsule (PreserVision AREDS-2) calcium carbonate 500 mg-vitamin 1 tab PO BID 12/18/18 02/25/22 History D3 5 mcg (200 unit) tablet (Calcium 500 + D) denosumab 60 mg/mL subcutaneous 60 mg subcut Q6MO 03/24/19 02/25/22 History syringe (Prolia) cholecalciferol (vitamin D3) 50 50 mcg PO QPM 04/19/19 02/25/22 History mcg (2,000 unit) capsule (Vitamin D3) ferrous sulfate 325 mg (65 mg 65 mg PO QAM 04/19/19 02/25/22 History iron) tablet (iron) acetaminophen 500 mg capsule 500 mg PO BID PRN Fever Or Pain 09/15/19 02/25/22 History tafluprost (PF) 0.0015 % eye drops 1 drp ophthalmic (eye) HS 09/21/20 02/25/22 History in a dropperette (Zioptan (PF)) furosemide 40 mg tablet 40 mg PO DAILY #90 tabs 02/26/21 02/25/22 Rx metoprolol succinate 25 mg 25 mg PO QAM #30 tabs 11/05/21 02/25/22 Rx tablet,extended release 24 hr omeprazole 40 mg capsule,delayed 40 mg PO BID #180 caps 12/06/21 02/25/22 Rx release methylprednisolone 4 mg tablets in 4 mg PO DAILY #21 ea 02/19/22 02/25/22 Rx a dose pack (Medrol (Gelacio)) Past Med/Surg History Medical History Anosmia Aortic valve sclerosis Barretts esophagus Deaf left ear GERD (gastroesophageal reflux disease) 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 She is managed with esomeprazole 40mg daily + ranitidine 300mg QHS. Glaucoma Heart failure with preserved ejection fraction History of atrial fibrillation HAD POST OP EPISODE - CURRENTLY CONTROLLED BY MEDS History of breast cancer Followed by Cancer care, history of infiltrating ductal carcinoma of the right breast, initially diagnosed (04/24). She had a partial mastectomy and sentinel node biopsy (05/25). She is followed by oncology. History of GI bleed Remote hx, possibly d/t nsaids History of skin cancer Macular degeneration Osteoarthritis b/l shoulder replacemnt, b/l knee pain Osteoporosis Paroxysmal atrial tachycardia Paroxysmal ventricular tachycardia Peripheral neuropathy Postoperative atrial fibrillation Venous insufficiency Surgical History Adverse anesthesia outcome " ANESTHESIA NERVE BLOCK DID NOT WORK" History of arthroplasty of left shoulder History of esophagogastroduodenoscopy (EGD) History of gastric polyp s/p resection History of knee replacement procedure of left knee History of knee replacement procedure of right knee Post op developed pseudomonas - had to have revision History of total replacement of right shoulder joint Hx of bilateral cataract extraction Hx of colonoscopy Hx of hernia repair Hx of partial mastectomy right Hx of tonsillectomy Family History Mother Family history of diabetes mellitus (DM) Breast cancer Hypertension Diabetes Father Myocardial infarction Hypertension Arthritis Unknown Alzheimer disease Denies family history of Ovarian cancer Prostate cancer Lung cancer Colorectal cancer Social History Smoking Status: Never smoker Second Hand Exposure: No; Hx Alcohol Use: Yes Alcohol type: wine Alcohol Intake Frequency: Monthly or Less Alcohol Intake Frequency Comment: social Hx Substance Use: No Preferred Language: Pashto Communication Ability: Effective Visual Impairment: Limited Hearing Ability: Hard of Hearing [employer] 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 Beliefs That Will Affect Care: None marital status: Current Living Situation: Spouse current occupational status: retired current occupation: Owns a business How many Children do You have: 2 Feels Safe at Home: Yes Childhood Exposure to Second-Hand Smoke: No caffeine: Yes (coffee ) Dental Care, Regularly: Yes Physical Activity Frequency: Daily Physical Activity Frequency Comment: walks alot steps, also gardens every morning Seatbelt Use: sometimes Sunscreen Use: Yes Assistive Devices: Walker Review of Systems Review of Systems: All systems reviewed & are unremarkable except as noted in HPI & below Physical Exam Physical Exam: General: A&Ox3. NAD. Cooperative. HEENT: Atraumatic, normocephalic. Vision/hearing grossly intact Pulm: CTAB A&P. -wheezes, -rales, -rhonchi. Symmetrical chest rise. No increased work of breathing. No respiratory distress. Cardiac: RRR, -mrg. Radial pulses intact and symmetrical. Abdominal: Diffusely softly tender without rebound/rigidity/guarding. Ext: warm/dry. moves all extremities equally. sensation/strength grossly intact Results & Data Results & Data ([facility]) Vital Signs (Past 12 Hours) Vital Signs Temp Pulse Pulse Resp BP BP Pulse Ox 02/25/22 17:49 68 18 152/71 H 98 02/25/22 15:57 67 18 139/89 94 02/25/22 14:21 36.7 C 85 16 156/91 H 94 O2 Del Method O2 Flow Rate 02/25/22 17:49 Nasal Cannula 2 02/25/22 15:57 Nasal Cannula 2 11/14/22 14:21 Room Air PG Care Time/CCT Total # of Minutes Spent Total Time Spent with Patient: Total time spent is greater than 50% in coordination of care (as documented) at patient's floor/unit and/or counseling patient: Coding Level of Care Code 05814 Initial Inpt Care Lvl 2 Diagnoses Partial small bowel obstruction K56.600 Iron deficiency anemia D50.9 Aortic valve sclerosis I35.8 Heart failure with preserved ejection fraction I50.30 History of breast cancer Z85.3 GERD (gastroesophageal reflux disease) K21.9
[2022-02-25] MEDS ORDERED: MoRPHine SULFATE 4 MG/ML 1 ML CARP\\VIAL IV PRN (18:20)
[2022-02-25] MEDS ORDERED: MoRPHine SULFATE 2 MG/ML CARP IV PRN (18:20)
[2022-02-25] MEDS ORDERED: ONDANSETRON INJ 2 MG/ML 2 ML VIAL IV PRN (18:20)
[2022-02-25] MEDS: NSS + 20MEQ KCL 20 MEQ/1,000 ML BAG IV SCH (22:06)
[2022-02-25] MEDS ORDERED: PNEUMOCOCCAL POLYSACCHARIDES 25 MCG/0.5 ML VIAL/SYR IM ONE (22:35)
[2022-02-25] MEDS: METOPROLOL TARTRATE 1 MG/ML VIAL IV SCH (23:31)
[2022-02-26] MEDS: METOPROLOL TARTRATE 1 MG/ML VIAL IV SCH ×4 (05:21→22:58)
--- NOTE | 2022-02-26 06:34 | Surgery Progress Note ---
Date of Service February 26, 2022 Assessment & Plan (1) Partial obstruction of small intestine: Plan: We will recheck later this morning Continue nonoperative care for now We will add Dulcolax suppository May consider contrast study using CT scan Continue limited p.o. Analgesics and antiemetics as needed Check a.m. lab including mag and Phos Admission and Anticipated Discharge Date Admission Date: February 25, 2022 Subjective Patient's vital signs are stable Nurse said she did well overnight She is currently resting very comfortably Review of Systems Review of Systems: All systems reviewed & are unremarkable except as noted in HPI & below Physical Exam Physical Exam: Vital signs are stable Constitutional: well developed and well nourished; no acute distress Eyes: + anicteric sclerae Respiratory: normal respiratory effort; no respiratory distress Cardiovascular: Rate/Rhythm: regular rate Gastrointestinal (Abdomen): Inspection/Auscultation: + abdomen distended (Mild) See above Musculoskeletal: Head/Neck/Chest: head atraumatic Skin: no rashes, warm and dry Neurologic: awake Psychiatric: Orientation: alert Results & Data ([facility]) Vital Signs (Past 12 Hours) Vital Signs Temp Pulse Pulse Resp BP BP Pulse Ox 02/26/22 05:21 80 122/74 02/26/22 05:20 80 122/74 02/26/22 03:38 37.0 C 89 14 129/62 90 02/25/22 23:31 100 H 123/73 02/25/22 22:54 69 02/25/22 20:18 36.9 C 80 16 155/89 H 93 02/25/22 22:13 86 02/25/22 21:52 36.9 C 74 12 138/85 92 02/25/22 19:00 69 18 147/58 H 97 O2 Del Method 02/26/22 05:21 02/26/22 05:20 02/26/22 03:38 Room Air 02/25/22 23:31 02/25/22 22:54 02/25/22 20:18 Room Air 02/25/22 22:13 02/25/22 21:52 Room Air 02/25/22 19:00 Room Air PG Care Time/CCT Total # of Minutes Spent Total Time Spent with Patient: Total time spent is greater than 50% in coordination of care (as documented) at patient's floor/unit and/or counseling patient: Coding Level of Care Code 25713 Inpt Consult Level 3 Diagnoses Partial obstruction of small intestine K56.600
[2022-02-26] MEDS: NSS + 20MEQ KCL 20 MEQ/1,000 ML BAG IV SCH ×2 (07:36→17:26)
--- NOTE | 2022-02-26 07:46 | Hospitalist Progress Note ---
Date of Service February 26, 2022 Assessment & Plan (1) Small bowel obstruction: Plan: 86-year-old female with past medical history significant for hernia repair, iron deficiency anemia, HFpEF, GERD admitted for small bowel obstruction. Small bowel obstruction: Presented due to worsening abdominal pain to the emergency room. KUB showed moderate well formed stool with mildly dilated gas-filled loops of small bowel. CTAP showed evidence of internal hernia with associated small bowel obstruction. Surgery consulted: No urgent surgical intervention at this time, conservative measures for now with repeat exam in the morning. Can consider CT with oral contrast in the morning if no better. Zofran and morphine as needed for nausea and pain. Continue n.p.o. except for sips and chips, with NSS 100 cc/h (2) Iron deficiency anemia: Plan: Hx of iron deficiency anemia with baseline Hgb 10-12. Hgb 12.4 on admission -> 10.8 today without evidence of bleeding, suspect due to fluids as all cell lines decreased. Daily CBC. (3) Atrial tachycardia: Plan: History of brief run of atrial fibrillation post-op. Takes metoprolol succinate 25mg daily; continue in divided IV doses. (4) Heart failure with preserved ejection fraction: Plan: Last Echo on file in 2019 showed EF 65-70%. Chronic venous stasis on Lasix 40mg daily. Holding furosemide given n.p.o. with monitoring of fluid status. No evidence of fluid overload on exam. (5) Rib pain: Plan: Fell on 02/18 after her chair broke, and since then has had some L rib pain. Placed on a Medrol taper as outpatient due to inability to tolerate NSAID -> discontinuing this in favor of lidocaine patches and diclofenac gel. (6) GERD (gastroesophageal reflux disease): Plan: Continue PPI, Protonix daily. Plan Full code N.p.o. with sips and chips ambulate on demand, no chemoppx for dvt at this time, low risk Tele status due to NPO in order to receive metoprolol IV Admission and Anticipated Discharge Date Admission Date: February 25, 2022 Subjective Patient without any acute events overnight. She reports minimal abdominal pain except during palpation of her lower quadrants, during which time the pain is mild. She denies nausea and vomiting. She was seen by surgery this morning who recommended conservative treatment for now. She denies any chest pain or trouble breathing, dizziness. Review of Systems Constitutional: no fever and no chills Respiratory: no cough and no dyspnea Cardiovascular: no chest pain and no palpitations Gastrointestinal: + abdominal pain (Mild); no nausea and no vomiting Physical Exam Constitutional: WD/WN, vitals as above Respiratory: normal respiratory effort, lungs clear to auscultation Cardiovascular: RRR, no murmur, no edema Gastrointestinal (Abdomen): abdomen soft, mildly tender with palpation, no organomegaly, no abdominal distention Skin: no rashes, warm and dry Psychiatric: A+Ox3, euthymic affect Results & Data Results & Data ([facility]) Vital Signs (Past 12 Hours) Vital Signs Temp Pulse Pulse Resp BP BP Pulse Ox 02/26/22 07:17 36.5 C 72 18 138/78 94 02/26/22 05:21 80 122/74 02/26/22 05:20 80 122/74 02/26/22 03:38 37.0 C 89 14 129/62 90 02/25/22 23:31 100 H 123/73 02/25/22 22:54 69 02/25/22 20:18 36.9 C 80 16 155/89 H 93 02/25/22 22:13 86 02/25/22 21:52 36.9 C 74 12 138/85 92 O2 Del Method 02/26/22 07:17 Room Air 02/26/22 05:21 02/26/22 05:20 02/26/22 03:38 Room Air 02/25/22 23:31 02/25/22 22:54 02/25/22 20:18 Room Air 02/25/22 22:13 02/25/22 21:52 Room Air PG Care Time/CCT Total # of Minutes Spent Total Time Spent with Patient: Total time spent is greater than 50% in coordination of care (as documented) at patient's floor/unit and/or counseling patient: Coding Level of Care Code 79010 Subseq Hosp Care Lvl 2 Diagnoses Small bowel obstruction K56.609 Iron deficiency anemia D50.9 Atrial tachycardia I47.1 Heart failure with preserved ejection fraction I50.30 Rib pain R07.81 GERD (gastroesophageal reflux disease) K21.9
[2022-02-26 07:52] LABS: Basophils # (auto) 0.03 K/uL (0-0.2); Basophils % (auto) 0.5 %; Eosinophils # (auto) 0.14 K/uL (0-0.50); Eosinophils % (auto) 2.6 %; Hematocrit (blood only) 33.9 % (34.1-44.9); Hemoglobin 10.8 g/dl (12.0-16.0); Immature Granulocytes # (auto) 0.02 K/uL (0.00-0.02); Immature Granulocytes % (auto) 0.4 %; Lymphocytes # (auto) 0.78 K/uL (1.2-3.4); Lymphocytes % (auto) 14.2 %; Mean Corpuscular Hemoglobin 28.4 pg (25.0-34.0); Mean Corpuscular Hgb Conc 31.9 g/dL (32.0-36.0); Mean Corpuscular Volume 89.2 fL (80.0-100.0); Mean Platelet Volume 9.4 fL (9.4-12.3); Monocytes # (auto) 0.45 K/uL (0.24-0.82); Monocytes % (auto) 8.2 %; Neutrophils # (auto) 4.07 K/uL (1.4-6.5); Neutrophils % (auto) 74.1 %; Platelet Count 265 K/uL (130-400); RDW Coefficient of Variation 14.2 % (11.5-14.5); RDW Standard Deviation 46.2 fL (36.4-46.3); White Blood Count 5.49 K/ul (4.8-10.8)
[2022-02-26] MEDS ORDERED: bisacodyL 10 MG SUPP PR ONE (08:00)
[2022-02-26 08:17] LABS: Albumin Globulin Ratio 1.6 (0.9-2); Albumin Level 3.2 gm/dl (3.4-5.0); BUN Creatinine Ratio 19.7 (10-20); Bilirubin,Total 0.5 mg/dl (0.2-1.0); Calcium 9.2 mg/dl (8.5-10.1); Creatinine Clr Calc Pharmacy 50.1 ml/min; Est GFR (African American) 92.1 ml/min; Est GFR (Non-African American) 79.4 ml/min; Magnesium 1.6 mg/dl (1.7-2.4); Phosphorus 4.4 mg/dl (2.5-4.9); Potassium 4.2 mmol/L (3.5-5.1); Total Protein 5.2 gm/dl (6.0-8.3)
[2022-02-26] MEDS: LIDOCAINE 5% 1 PATCH TD SCH (08:33)
--- NOTE | 2022-02-26 08:41 | Electrocardiogram Report ---
Test Reason : Blood Pressure : / mmHG Vent. Rate : 074 BPM Atrial Rate : 074 BPM P-R Int : 138 ms QRS Dur : 082 ms QT Int : 400 ms P-R-T Axes : 036 -09 042 degrees QTc Int : 444 ms Sinus rhythm with Premature atrial complexes Otherwise normal ECG When compared with ECG of 03-MAY-2019 15:36, No significant change was found Confirmed by Jose G Dobbs ([id number]) on 02/26/2022 8:41:25 AM Referred By: REFERRED SELF Confirmed By:Jose G Dobbs
--- NOTE | 2022-02-26 10:00 | XRay Report ---
KUB CLINICAL HISTORY: Generalized abdominal pain. FINDINGS: An AP, portable, supine abdominal radiograph is compared to abdominal radiograph and CT kayla ed 02/25/2022. There is persistent gaseous distention of the small bowel loops in the left mid abdomen which measure up to 3.5 cm diameter. There is a paucity of distal small bowel gas. Mild fecal retention is seen in the colon. No evidence of intraperitoneal free air is seen on this supine image. There are no abnorm al abdominal calcifications. Excreted IV contrast is present in the bladder. The skeletal structures are osteopenic and appear intact. There is moderate to advanced lumbosacral spondylosis and mild scol iosis. The heart is enlarged. IMPRESSION: Persistent small bowel obstruction. Electronically signed by: Bridger Gibbs M.D. 02/26/2022 9:58 AM
--- NOTE | 2022-02-26 10:22 | Surgery Progress Note ---
Date of Service February 26, 2022 Assessment & Plan (1) Partial obstruction of small intestine: Plan: See my note from earlier this morning Patient awake and alert affect is good Much less pain KUB continues to show some mildly dilated small bowel Seems minimal at 3.5 cm Patient has more active bowel sounds on auscultation Continue current plan, will give some ice, if she desires clear liquids I would try May consider contrast study tomorrow morning but not today Admission and Anticipated Discharge Date Admission Date: February 25, 2022 Results & Data ([facility]) Vital Signs (Past 12 Hours) Vital Signs Temp Pulse Pulse Resp BP BP Pulse Ox 02/26/22 08:49 69 02/26/22 07:17 36.5 C 72 18 138/78 94 02/26/22 05:21 80 122/74 02/26/22 05:20 80 122/74 02/26/22 03:38 37.0 C 89 14 129/62 90 02/25/22 23:31 100 H 123/73 02/25/22 22:54 69 O2 Del Method 02/26/22 08:49 02/26/22 07:17 Room Air 02/26/22 05:21 02/26/22 05:20 02/26/22 03:38 Room Air 02/25/22 23:31 02/25/22 22:54 PG Care Time/CCT Total # of Minutes Spent Total Time Spent with Patient: Total time spent is greater than 50% in coordination of care (as documented) at patient's floor/unit and/or counseling patient: Coding Level of Care Code None Diagnoses Partial obstruction of small intestine K56.600
[2022-02-26] MEDS: PANTOprazole 40 MG in SYRINGE 0 ML IV SCH (12:42)
[2022-02-26] MEDS ORDERED: DICLOFENAC SOD 1% GEL 100 GM TUBE EXT PRN (16:49)
[2022-02-27] MEDS: NSS + 20MEQ KCL 20 MEQ/1,000 ML BAG IV SCH ×2 (03:38→11:58)
[2022-02-27] MEDS: METOPROLOL TARTRATE 1 MG/ML VIAL IV SCH ×3 (06:34→17:03)
[2022-02-27 06:45] LABS: Hemoglobin 10.8 g/dl (12.0-16.0)
--- NOTE | 2022-02-27 07:10 | Surgery Progress Note ---
Date of Service February 27, 2022 Assessment & Plan (1) Small bowel obstruction: Plan: Somewhat improved Mild concern re: bowel movements I think the best course is to give her some contrast and check a CAT scan for transit Hopefully we can begin a diet later on depending on findings Does not appear to require urgent surgical intervention Admission and Anticipated Discharge Date Admission Date: February 25, 2022 Subjective Awake and alert in no distress No abdominal pain Passing flatus No bowel movement Review of Systems Review of Systems: All systems reviewed & are unremarkable except as noted in HPI & below Physical Exam Physical Exam: Abdomen is softer with some bowel sounds Minimal tenderness Constitutional: well developed and well nourished; no acute distress Eyes: + anicteric sclerae Respiratory: normal respiratory effort; no respiratory distress Cardiovascular: Rate/Rhythm: regular rate Gastrointestinal (Abdomen): Percussion/Palpation: abdomen soft Musculoskeletal: Gait: normal gait Skin: no rashes, warm and dry Neurologic: awake Psychiatric: Orientation: alert Results & Data ([facility]) Vital Signs (Past 12 Hours) Vital Signs Temp Pulse Pulse Resp BP BP Pulse Ox 02/27/22 06:34 83 149/74 H 02/27/22 03:03 37 C 72 17 159/92 H 95 02/26/22 23:01 36.6 C 18 93 02/26/22 22:58 86 151/78 H 02/26/22 20:06 36.8 C 81 18 158/76 H 93 O2 Del Method 02/27/22 06:34 02/27/22 03:03 Room Air 02/26/22 23:01 Room Air 02/26/22 22:58 02/26/22 20:06 Room Air PG Care Time/CCT Total # of Minutes Spent Total Time Spent with Patient: Total time spent is greater than 50% in coordination of care (as documented) at patient's floor/unit and/or counseling patient: Coding Level of Care Code 27537 Inpt Consult Level 3 Diagnoses Small bowel obstruction K56.609
--- NOTE | 2022-02-27 08:29 | Hospitalist Progress Note ---
Date of Service February 27, 2022 Assessment & Plan (1) Small bowel obstruction: Plan: 86-year-old female with past medical history significant for hernia repair, iron deficiency anemia, HFpEF, GERD admitted for small bowel obstruction. Small bowel obstruction: Presented due to worsening abdominal pain to the emergency room. KUB showed moderate well formed stool with mildly dilated gas-filled loops of small bowel. CTAP showed evidence of internal hernia with associated small bowel obstruction. Surgery consulted: No urgent surgical intervention at this time. CT with oral and IV contrast done, with good transit of contrast into colon and a few BMs since study was done. Continue to advance diet as tolerated. Zofran and morphine as needed for nausea and pain. Fluids d/c'ed. (2) Iron deficiency anemia: Plan: Hx of iron deficiency anemia with baseline Hgb 10-12. Hgb 12.4 on admission -> 10.8 on 02/27 (same as day before) without evidence of bleeding; suspect due to fluids as all cell lines decreased. Daily CBC. (3) Atrial tachycardia: Plan: History of brief run of atrial fibrillation post-op. Tele shows sinus with PACs. Takes metoprolol succinate 25mg daily; can resume oral dosing in the AM. (4) Heart failure with preserved ejection fraction: Plan: Last Echo on file in 2018 showed EF 65-70%. Chronic venous stasis on Lasix 40mg daily. Holding furosemide given n.p.o. with monitoring of fluid status; has had several unmeasured voids. No evidence of fluid overload on exam. (5) Rib pain: Plan: Fell on 02/18 after her chair broke, and since then has had some L rib pain. Placed on a Medrol taper as outpatient due to inability to tolerate NSAID -> discontinued this in favor of lidocaine patches and diclofenac gel. Pain under good control with these. (6) GERD (gastroesophageal reflux disease): Plan: Continue PPI, Protonix daily. Plan Full code Full liquid diet with advance as tolerated ambulate on demand, no chemoppx for dvt at this time, low risk Med/Tele status Admission and Anticipated Discharge Date Admission Date: February 25, 2022 Subjective No acute events overnight. Patient reports having a BM today. She reports feelin g hungry. She denies nausea, vomiting, abdominal pain today. Also without complaints of chest pain, SOB, lightheadedness, fevers. No vital sign abnormalities. Review of Systems Constitutional: no fever and no chills Respiratory: no cough and no dyspnea Cardiovascular: no chest pain and no palpitations Gastrointestinal: no abdominal pain, no nausea and no vomiting Physical Exam Constitutional: WD/WN, vitals as above Respiratory: normal respiratory effort, lungs clear to auscultation Cardiovascular: regularly irregular, nontachycardic Gastrointestinal (Abdomen): soft nontender nondistended Skin: no rashes, warm and dry Psychiatric: A+Ox3, euthymic affect Results & Data Results & Data ([facility]) Vital Signs (Past 12 Hours) Vital Signs Temp Pulse Pulse Resp BP BP Pulse Ox 02/27/22 07:43 36.4 C L 77 18 170/80 H 95 02/27/22 06:34 83 149/74 H 02/27/22 03:03 37 C 72 17 159/92 H 95 02/26/22 23:01 36.6 C 18 93 02/26/22 22:58 86 151/78 H O2 Del Method 02/27/22 07:43 Room Air 02/27/22 06:34 02/27/22 03:03 Room Air 02/26/22 23:01 Room Air 02/26/22 22:58 PG Care Time/CCT Total # of Minutes Spent Total Time Spent with Patient: Total time spent is greater than 50% in coordination of care (as documented) at patient's floor/unit and/or counseling patient: Coding Level of Care Code 57577 Subseq Hosp Care Lvl 2 Diagnoses Small bowel obstruction K56.609 Iron deficiency anemia D50.9 Atrial tachycardia I47.1 Heart failure with preserved ejection fraction I50.30 Rib pain R07.81 GERD (gastroesophageal reflux disease) K21.9
[2022-02-27] MEDS ORDERED: OPTIRAY 350 100ml IV ONE (09:38)
--- NOTE | 2022-02-27 10:13 | CT Scan Report ---
CT OF THE ABDOMEN AND PELVIS WITH CONTRAST CLINICAL HISTORY: History of partial SBO versus other. COMPARISON STUDY: CT of the abdomen and pelvis February 25, 2022 and KUB February 26, 2022. TECHNIQUE: Following IV administration of 87 mL of Optiray, axial images of the abdomen and pelvis we re obtained from the lung bases to the proximal femurs. Images were reviewed in the axial, sagittal, and coronal planes. IV contrast was administered without complication. Automated exposure control wa s utilized for the study. A dose lowering technique was utilized adhering to the principles of ALARA . Oral contrast was administered. CT DOSE: 449.12 mGy.cm FINDINGS: A trace left pleural effusion is noted. A large hernia with partially intrathoracic stomach is unchanged with small amount of ascites within the hernia sac. The stomach is not distended. No pn eumatosis, free air or portal venous gas is present. A small amount of abdominal and pelvic ascites h as slightly increased. The gallbladder is mildly distended. There are no hepatic lesions. Spleen, adr enal glands and pancreas are unremarkable. There is no biliary or pancreatic ductal dilatation. A 3.9 cm left renal cyst is present. Numerous subcentimeter renal lesions are too small to characterize. M esenteric infiltration has slightly decreased. Oral contrast reaches the colon. However, there is per sistent mild small bowel dilatation and multiple small bowel loops converge upon the central mesenter y with multiple transition points in close proximity to one another. The proximal jejunum and distal ileum are involved. There is mild associated mesenteric swirling. Mild wall thickening of the distal ileum is new since prior exam. Numerous small bowel diverticula are present. There is no evidence for a colonic obstruction. Colonic diverticulosis is noted without evidence for acute diverticulitis. Ma riaz vasculature is grossly patent. IMPRESSION: 1. Findings consistent with a partial small bowel obstruction. Oral contrast reaches the colon howeve r persistent mild small bowel dilatation. Small bowel loops converge upon the mesentery with multiple transition points in close proximity to one another with mild mesenteric swirling. Mild wall thicken ing of the distal ileum. The findings raise the possibility of an internal hernia or volvulus as the etiology. Small amount of ascites, increased since prior exam with decrease in mesenteric stranding. 2. Large hiatal hernia with partially intrathoracic stomach. 3. Numerous small bowel diverticula. 4. Mild gallbladder distention. 5. Trace left pleural effusion. ACT 112: Negative or not required by law. Electronically signed by: Calos Panda M.D. 02/27/2022 10:11 AM
--- NOTE | 2022-02-27 10:22 | Surgery Progress Note ---
Date of Service February 27, 2022 Assessment & Plan (1) Small bowel obstruction: Plan: pt with good transit of contrast to colon some dilated small bowel and less edema of mesentery pt with no pain and abd soft I feel we can try clear liquids and adv diet If she fails , will likely require abd exploration- hopefully not at 86 yo Admission and Anticipated Discharge Date Admission Date: February 25, 2022 Results & Data ([facility]) Vital Signs (Past 12 Hours) Vital Signs Temp Pulse Pulse Resp BP BP Pulse Ox 02/27/22 08:45 72 02/27/22 07:43 36.4 C L 77 18 170/80 H 95 02/27/22 06:34 83 149/74 H 02/27/22 03:03 37 C 72 17 159/92 H 95 02/26/22 23:01 36.6 C 18 93 02/26/22 22:58 86 151/78 H O2 Del Method 02/27/22 08:45 02/27/22 07:43 Room Air 02/27/22 06:34 02/27/22 03:03 Room Air 02/26/22 23:01 Room Air 02/26/22 22:58 PG Care Time/CCT Total # of Minutes Spent Total Time Spent with Patient: Total time spent is greater than 50% in coordination of care (as documented) at patient's floor/unit and/or counseling patient: Coding Level of Care Code None Diagnoses Small bowel obstruction K56.609
[2022-02-27] MEDS: PANTOprazole 40 MG in SYRINGE 0 ML IV SCH (11:58)
[2022-02-27] MEDS: LIDOCAINE 5% 1 PATCH TD SCH (11:59)
[2022-02-28] MEDS: METOPROLOL TARTRATE 1 MG/ML VIAL IV SCH (02:54)
--- NOTE | 2022-02-28 08:12 | Surgery Progress Note ---
Date of Service February 28, 2022 Assessment & Plan (1) Small bowel obstruction: Plan: It does not appear the patient needs surgical intervention Can discharge home from surgical standpoint Obviously if patient's symptoms recurred she would have to come back to the e mergency room Advance diet as tolerated I do not think she necessarily needs surgical follow-up unless she has problems Admission and Anticipated Discharge Date Admission Date: February 25, 2022 Subjective Patient sitting on the edge of the bed eating her breakfast She feels very well and wishes to go home Taking no pain medication has no abdominal pain Physical Exam Physical Exam: Awake and alert no distress Vital signs are stable Results & Data ([facility]) Vital Signs (Past 12 Hours) Vital Signs Temp Pulse Pulse Resp BP Pulse Ox O2 Del Method 02/28/22 07:55 36.6 C 75 18 135/72 96 Room Air 02/28/22 07:15 68 02/28/22 03:00 36.6 C 61 20 161/83 H 95 Room Air 02/28/22 00:00 80 02/27/22 22:00 36.6 C 81 20 161/85 H 93 Room Air PG Care Time/CCT Total # of Minutes Spent Total Time Spent with Patient: Total time spent is greater than 50% in coordination of care (as documented) at patient's floor/unit and/or counseling patient: Coding Level of Care Code 17683 Inpt Consult Level 2 Diagnoses Small bowel obstruction K56.609
[2022-02-28] MEDS: LIDOCAINE 5% 1 PATCH TD SCH (08:29)
[2022-02-28] MEDS ORDERED: METOPROLOL SUCC 25MG EXT REL TAB PO SCH (09:00)
--- NOTE | 2022-02-28 10:20 | Discharge Summary ---
Discharge Summary Date of Service February 28, 2022 Admission HPI Per Admitting Provider Lori Clemons is a 86-year-old female with a past medical history of iron deficiency anemia, venous insufficiency, breast cancer, GERD, and peripheral neuropathy presents with abdominal pain and is found to have a potential SBO. Case was reviewed with surgery who noted partial small bowel obstruction, no urgent surgical intervention required, no nausea and can hold off on NG tube. Analgesics, antiemetics, bowel rest, medical management at this time. Lori is seen at the beside with her . Last friday had a fall when a chair collapsed and hit her L side and was seen for rib pain. No fxrs, was placed on a pred taper and discharged. Pain was improving and was taking deep breaths to prevent atelactasis. Feeling of abdominal 'tightness' started 3 days ago. Has felt like a slowly tightening belt has been on her abdomen. Last night had dinner with friends and 'had a huge dinner with two friends who were rectification printer.' AFter that developed low abdominal pain, stabbing and shooting pain in her belly all night. Last BM 02/24/22 in the morning, usually a morning BM regular person. No BM this morning .No melena/BRBPR. Abdominal Sx: unmbilical hernia repair 20 years ago with mesh. Denies other abdominal surgeries. Osteoporosis - On Prolia - reportedly managed by [facility]. We'll request these records. Shoulder Pain - Following with Dr. Quintanilla [facility]. They offered steroids but she declined d/t side effects. HFpEF/Aortic sclerosis - No issues with swelling, orthopnea, CP, irregular heart beats. No issues with dizziness r/t metoprolol and lasix 40mg QD. Peripheral neuropathy - No current concerns with this. Not on any medications. Continue to f/u clinically. GERD - Well controlled on Omeprazole 40mg. No dysphagia, N/V, dyspepsia, melena or hematochezia. Will not taper off d/t h/o recurrent ulcers and Parks's Esophagitis. Last EGD 2011 - she declines repeat EGD d/t advanced age. We'll update vitamin D, CBC and CMP today and continue to monitor clinically. H/O Breast CA - [facility] - No recent records. We'll request these. Venous insufficiency - Mild in severity. No current issues with swelling or ulcerations. No compression sleeves. Continue to f/u clinically. Iron deficiency anemia - She doesn't recall diagnosis. On ferrous sulfate 65mg QD. Last EGD 2011 - consistent with Parks's esophagitis. No dysplasia at that time. Underwent Colonoscopy 2014 - Sigmoid polyp x 1 consistent with tubular adenoma. She declines to f/u with Colonoscopy and EGD d/t advanced age. No dysphagia, weight loss, melena/hematochezia or changes in stools. We'll updated CBC, Ferritin, Transferrin Sat, TIBC and Serum iron and f/u with the results and continue to monitor clinically. Medical History: Reviewed Medications: Reviewed Surgical History: Reviewed Allergies: Reviewed Social History: No tobacco products, rare social glass of wine Code Status: Admission Exam Per Admitting Provider General: A&Ox3. NAD. Cooperative. HEENT: Atraumatic, normocephalic. Vision/hearing grossly intact Pulm: CTAB A&P. -wheezes, -rales, -rhonchi. Symmetrical chest rise. No increased work of breathing. No respiratory distress. Cardiac: RRR, -mrg. Radial pulses intact and symmetrical. Abdominal: Diffusely softly tender without rebound/rigidity/guarding. Ext: warm/dry. moves all extremities equally. sensation/strength grossly intact Principal Dx & Hospital Course #1 = Principal Diagnosis (1) Small bowel obstruction: 86-year-old female with past medical history significant for hernia repair, iron deficiency anemia, HFpEF, GERD admitted for small bowel obstruction. Small bowel obstruction: Presented due to worsening abdominal pain. KUB showed moderate well formed stool with mildly dilated gas-filled loops of small bowel. CTAP showed evidence of internal hernia with associated small bowel obstruction. Surgery consulted: No urgent surgical intervention at this time. CT with oral and IV contrast done, with good transit of contrast into colon and a few BMs since study was done. Diet was advanced without issues and patient has returned to normal BMs. (2) Iron deficiency anemia: Hx of iron deficiency anemia with baseline Hgb 10-12. Hgb 12.4 on admission -> 10.8 on 02/27 (same as day before) without evidence of bleeding; suspect due to fluids as all cell lines decreased. (3) Atrial tachycardia: History of brief run of atrial fibrillation post-op. Tele shows sinus with PACs. Continue metoprolol succinate 25mg daily. (4) Heart failure with preserved ejection fraction: Last Echo on file in 2019 showed EF 65-70%. Chronic venous stasis on Lasix 40mg daily, resume on discharge. (5) Rib pain: Fell on 02/18 after her chair broke, and since then has had some L rib pain. Placed on a Medrol taper as outpatient due to inability to tolerate NSAID -> discontinued this in favor of lidocaine patches and diclofenac gel. Pain under good control with these. (6) GERD (gastroesophageal reflux disease): Continue home PPI. Plan Dispo: home with self care Discharge Exam Constitutional WD/WN, vitals as above Gastrointestinal (Abdomen) normal bowel sounds, soft, nontender, no hepatosplenomegaly Psychiatric A+Ox3, euthymic affect Updated Medication List Medication Instructions Recorded Confirmed Type aigvztvn-uaz-gnmln acid 0.4 1 tab PO QAM 05/05/18 02/25/22 History mg-lycopene 300 mcg-lutein 250 mcg tablet (Centrum Silver) vit C 250 mg-vit E 90 mg-zinc 40 1 tab PO BID 05/05/18 02/25/22 History mg-copper 1 iu-vdzgmx-adqojl capsule (PreserVision AREDS-2) calcium carbonate 500 mg-vitamin 1 tab PO BID 12/18/18 02/25/22 History D3 5 mcg (200 unit) tablet (Calcium 500 + D) denosumab 60 mg/mL subcutaneous 60 mg subcut Q6MO 03/24/19 02/25/22 History syringe (Prolia) cholecalciferol (vitamin D3) 50 50 mcg PO QPM 04/19/19 02/25/22 History mcg (2,000 unit) capsule (Vitamin D3) ferrous sulfate 325 mg (65 mg 65 mg PO QAM 04/19/19 02/25/22 History iron) tablet (iron) acetaminophen 500 mg capsule 500 mg PO BID PRN Fever Or Pain 09/15/19 02/25/22 History tafluprost (PF) 0.0015 % eye drops 1 drp ophthalmic (eye) HS 09/21/20 02/25/22 History in a dropperette (Zioptan (PF)) furosemide 40 mg tablet 40 mg PO DAILY #90 tabs 02/26/21 02/25/22 Rx metoprolol succinate 25 mg 25 mg PO QAM #30 tabs 11/05/21 02/25/22 Rx tablet,extended release 24 hr omeprazole 40 mg capsule,delayed 40 mg PO BID #180 caps 12/06/21 02/25/22 Rx release Hospital Stay Data Consultations 02/25/22 17:12 Consult General Surgery Stat 02/25/22 17:26 ED Decision to Admit Stat Diagnostic Imagining Performed 02/25/22 15:38 CT abd pelvis IV con only Stat 02/27/22 07:06 CT abd pelvis oral and IV con Urgent Discharge Instructions Given to Patient (Per Discharging Provider) You were admitted to the hospital for a small bowel obstruction. Think of the guts like a water hose. Yours had a "kink" in it due to a small hernia inside of your abdomen. We had you take nothing by mouth to give your guts a rest and give them time to "unkink". Your symptoms improved without needing surgery. You were felt safe for discharge without changed to your home medications. If you have constipation at home, please take Miralax, 1 scoop as needed to have 1 soft formed bowel movement daily. You can adjust the dose up and down to achieve this goal. If you have rib pain, try lidocaine patches and voltaren gel over the counter to help. Please follow up with your primary care doctor in the next 2 weeks. If you have return of your belly pain symptoms, please seek medical attention. Please also seek medication attention if you have any chest pain or trouble breathing, or other concerns regarding your medical health. Total Time Total Time Spent Total Time Spent (In Minutes): 30 Coding Level of Care Code D/C DAY MANAGEMENT >30 MINS Diagnoses Small bowel obstruction K56.609 Iron deficiency anemia D50.9 Atrial tachycardia I47.1 Heart failure with preserved ejection fraction I50.30 Rib pain R07.81 GERD (gastroesophageal reflux disease) K21.9
[2022-02-28] MEDS: PANTOprazole 40 MG in SYRINGE 0 ML IV SCH (11:49)
[2022-02-28] MEDS ORDERED: SOD PHOSPHATE/SOD BIPHOSPHATE ENEMA 132 ML BTL PR STA (11:56)
== END 2022-02-28 13:31 | disposition home or self-care (01) | DRG 394 ==
LOC: ED 14:01 → SUATTDRO 18:19 → 2N 18:55 → 2S 21:49 → 2N 02-27 18:24

== ENCOUNTER 2022-07-31 16:30 | Inpatient (IN) ==
[2022-07-31] MEDS ORDERED: SODIUM CHLORIDE 0.9% 500 ML IV ONE (17:28)
--- NOTE | 2022-07-31 17:31 | Emergency Department Note ---
Impression & Plan Small bowel obstruction, Abdominal pain ED Provider Note NAME: ARIANA CARABALLO AGE: 86 SEX: F : 1935 ARRIVES VIA: Walk-In INFORMANT: Patient ED PROVIDER(S): Michael Gates DO CHIEF COMPLAINT: abdominal pain HPI: Patient is an 86-year-old female who presents to the ER with past medical history of heart failure, aortic stenosis, GERD for lower abdominal pain which started today. She notes she has been having diarrhea for the past 2 weeks. Denies any dysuria, urgency, or frequency. The belly pain started this morning and was seen by her PCP. Patient was referred in following this as she has a history of a previous bowel kink. No previous abdominal surgeries. No headache or change in vision. No chest pain or shortness of breath. No dizziness or lightheadedness. No other exacerbating or remitting factors. PAST MEDICAL HISTORY:See Below PAST SURGICAL HISTORY:See Below FAMILY HISTORY:See Below SOCIAL HISTORY:See Below HOME MEDICATIONS:See Below ALLERGIES:See Below VITALS:See Below PHYSICAL EXAMINATION: GENERAL: Sitting up in bed, alert, well appearing, well nourished, no distress, non-toxic EYE EXAM: normal conjunctiva. OROPHARYNX: mucous membranes are moist LUNGS: Clear to auscultation. Normal chest wall mechanics HEART: no murmurs, S1 normal and S2 normal ABDOMEN: abdomen soft, mild tenderness palpation lower abdomen, normo-active bowel sounds, no masses, no rebound or guarding. BACK: Back is symmetrical on inspection and there is no deformity, no midline tenderness, no CVA tenderness. SKIN: no rashes and no bruising UPPER EXTREMITIES: upper extremities are grossly normal. LOWER EXTREMITIES: No pitting edema. NEURO EXAM: Normal sensorium, cranial nerves II-XII grossly intact, normal speech, no gross weakness of arms, no gross weakness of legs. MEDICAL DECISION MAKING: Patient is an 86-year-old female who presents ER for above-stated complaint. IV was established blood work was obtained. Labs show mild leukocytosis 11,000. No significant anemia. BMP along LFTs and lipase was unremarkable. UA was slightly contaminated but no signs infection. COVID was negative. CT abdomen pelvis shows CT consistent with previous questioning a partial small bowel obstruction. With her symptoms being consistent with her last admission back in February she was discussed with the hospitalist for further evaluation management. External records were reviewed. She was given IV fluids. Declined pain medications. Triage Nursing notes reviewed. Limited review of prior medical records performed Vital Signs: reviewed and remarkable for no significant abnormalities Differential diagnosis: Differential diagnoses includes but is not limited to gastritis, peptic ulcer disease, GERD, gallbladder disease, pancreatitis, small bowel obstruction, appendicitis, diverticulitis, hernia, urinary tract infection, torsion, perforation, trauma, infectious. ER treatment provided: See below Diagnostics interpreted by me include EKG and cardiac monitoring as listed below: -Cardiac Monitoring: An order was placed for continuous cardiac monitoring. The monitor shows a rate of 92 with sinus rhythm. -ECG: Sinus rhythm rate 87 Left axis No PVCs QTc 447 -Laboratory studies:Interpreted by me as stated above in MDM and shown below. Imaging studies: Xrays: As interpreted by me: Portable AP upright 1 view of the chest shows no focal infiltrate CTs show: CT abdomen pelvis questions a partial small bowel obstruction Consultation(s): As described in MDM Procedures:none Critical Care: None Past Med/Surg History Medical History Abnormal ankle brachial index (~2021) No occulsive disease US Anosmia Aortic valve sclerosis Atrial tachycardia Barretts esophagus Deaf left ear GERD (gastroesophageal reflux disease) 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 She is managed with esomeprazole 40mg daily + ranitidine 300mg QHS. Glaucoma Heart failure with preserved ejection fraction Hernia, internal History of atrial fibrillation HAD POST OP EPISODE - CURRENTLY CONTROLLED BY MEDS History of breast cancer Followed by Cancer care, history of infiltrating ductal carcinoma of the right breast, initially diagnosed (04/24). She had a partial mastectomy and sentinel node biopsy (05/25). She is followed by oncology. History of GI bleed Remote hx, possibly d/t nsaids History of skin cancer Macular degeneration Osteoarthritis b/l shoulder replacemnt, b/l knee pain Osteoporosis Paroxysmal atrial tachycardia Paroxysmal ventricular tachycardia Peripheral neuropathy Postoperative atrial fibrillation Small bowel obstruction Traumatic open wound of right lower leg Venous insufficiency Surgical History Adverse anesthesia outcome " ANESTHESIA NERVE BLOCK DID NOT WORK" History of arthroplasty of left shoulder History of esophagogastroduodenoscopy (EGD) History of gastric polyp s/p resection History of knee replacement procedure of left knee History of knee replacement procedure of right knee Post op developed pseudomonas - had to have revision History of total replacement of right shoulder joint Hx of bilateral cataract extraction Hx of colonoscopy Hx of hernia repair Hx of partial mastectomy right Hx of tonsillectomy Family History Mother Family history of diabetes mellitus (DM) Breast cancer Hypertension Diabetes Father Myocardial infarction Hypertension Arthritis Unknown Alzheimer disease Denies family history of Ovarian cancer Prostate cancer Lung cancer Colorectal cancer Social History Smoking Status: Never smoker Second Hand Exposure: No; Hx Alcohol Use: No Hx Substance Use: No Preferred Language: Spanish Communication Ability: Effective Communication Ability Comment: deaf in left ear Visual Impairment: Limited Hearing Ability: Hard of Hearing Client Success Specialist Required: No Beliefs That Will Affect Care: None marital status: Current Living Situation: Spouse current occupational status: retired current occupation: Owns a business How many Children do You have: 2 Feels Safe at Home: Yes Childhood Exposure to Second-Hand Smoke: No caffeine: Yes (coffee ) Dental Care, Regularly: Yes Physical Activity Frequency: Daily Physical Activity Frequency Comment: walks alot steps, also gardens every morning Seatbelt Use: sometimes Sunscreen Use: Yes Assistive Devices: Walker Allergies Allergies Allergy/AdvReac Type Severity Reaction Status Date / Time acetaminophen [From Percocet] Allergy Mild itching Verified 07/31/22 15:09 oxycodone [From Percocet] Allergy Mild itching Verified 07/31/22 15:09 Penicillins Allergy Mild Rash Verified 07/31/22 15:09 aspirin AdvReac Unknown unknown Verified 07/31/22 15:09 reaction- ? related to ulcer hx celecoxib AdvReac Unknown ulcer hx Verified 07/31/22 15:09 NSAIDS (Non-Steroidal AdvReac Unknown unknown Verified 07/31/22 15:09 Anti-Inflamma reaction- ? related to ulcer hx Home Meds Home Medications Medication Instructions Recorded Confirmed [id number] acid 0.4 1 tab PO QAM 05/05/18 07/31/22 mg-lycopene 300 mcg-lutein 250 mcg tablet (Centrum Silver) vit C 250 mg-vit E 90 mg-zinc 40 1 tab PO BID 05/05/18 07/31/22 mg-copper 1 [id number] capsule (PreserVision AREDS-2) calcium carbonate 500 mg-vitamin 1 tab PO BID 12/18/18 07/31/22 D3 5 mcg (200 unit) tablet (Calcium 500 + D) denosumab 60 mg/mL subcutaneous 60 mg subcut Q6MO 03/24/19 07/31/22 syringe (Prolia) cholecalciferol (vitamin D3) 50 50 mcg PO QAM 04/19/19 07/31/22 mcg (2,000 unit) capsule (Vitamin D3) ferrous sulfate 325 mg (65 mg 65 mg PO QAM 04/19/19 07/31/22 iron) tablet (iron) acetaminophen 500 mg capsule 500 mg PO BID 09/15/19 07/31/22 tafluprost (PF) 0.0015 % eye drops 1 drp ophthalmic (eye) HS 09/21/20 07/31/22 in a dropperette (Zioptan (PF)) furosemide 40 mg tablet 40 mg PO QAM 07/31/22 07/31/22 relief factor 4 tab PO BID 07/31/22 07/31/22 Previous Rx's Medication Instructions Recorded omeprazole 40 mg capsule,delayed 40 mg PO BID #180 caps 12/06/21 release metoprolol succinate 25 mg 25 mg PO QAM #90 tabs 05/03/22 tablet,extended release 24 hr Results & Data (ED) Vital Signs Vital Signs - 24 hr 07/31/22 16:46 07/31/22 18:23 07/31/22 20:42 Temperature 36.8 C Temperature Source Temporal Artery Scan Pulse Rate 97 H Pulse Rate [Finger] 71 73 Pulse Rhythm Irregular Respiratory Rate 18 18 18 Respiratory Effort / Characteristics Non-Labored Non-Labored Spontaneous Respiratory Depth Normal Normal Respiratory Pattern Regular Regular Blood Pressure 106/72 Blood Pressure [Right Arm] 109/70 93/63 L Blood Pressure Mean 83 Blood Pressure Mean [Right Arm] 83 73 Blood Pressure Position Sitting Pulse Oximetry 93 96 99 Oxygen Delivery Method Room Air Room Air Room Air Sepsis Recent Fever Within 48 Hours No Sepsis New/Unexplained Change in Mental Status No Sepsis Action Taken by Nursing No Action Required 07/31/22 22:43 Temperature Temperature Source Pulse Rate Pulse Rate [Finger] 76 Pulse Rhythm Respiratory Rate 18 Respiratory Effort / Characteristics Respiratory Depth Respiratory Pattern Blood Pressure Blood Pressure [Right Arm] 105/61 Blood Pressure Mean Blood Pressure Mean [Right Arm] 75 Blood Pressure Position Pulse Oximetry 93 Oxygen Delivery Method Room Air Sepsis Recent Fever Within 48 Hours Sepsis New/Unexplained Change in Mental Status Sepsis Action Taken by Nursing Laboratory Data 07/31/22 17:23 07/31/22 17:23 Lab Results 07/31/22 07/31/22 07/31/22 Range/Units 17:23 17: 17:57 WBC 11.01 H (4.8-10.8) K/ul RBC 4.29 (4.20-5.40) M/uL Hgb 12.0 (12.0-16.0) g/dl Hct 36.5 L (37.0-47.0) % MCV 85.1 (80.0-100.0) fL MCH 28.0 (25.0-34.0) pg MCHC 32.9 (32.0-36.0) g/dL RDW Std Deviation 46.4 H (36.4-46.3) fL RDW Coeff of Rubina 15.0 H (11.5-14.5) % Plt Count 405 H (130-400) K/uL MPV 9.3 L (9.4-12.4) fL Immature Gran % (Auto) 0.4 % Neut % (Auto) 80.2 % Lymph % (Auto) 15.2 % Love % (Auto) 3.6 % Eos % (Auto) 0.4 % Baso % (Auto) 0.2 % Neut # (Auto) 8.84 H (1.40-6.50) K/uL Lymph # (Auto) 1.67 (1.2-3.4) K/uL Love # (Auto) 0.40 (0.11-0.59) K/uL Eos # (Auto) 0.04 (0-0.50) K/uL Baso # (Auto) 0.02 (0-0.2) K/uL Immature Gran # (Auto) 0.04 (0.01-0.20) K/uL Sodium 140 (136-145) mmol/L Potassium 3.8 (3.5-5.1) mmol/L Chloride 102 (98-107) mmol/L Carbon Dioxide 31 (21-32) mmol/L Anion Gap 7 (3-11) BUN 30 H (6-23) mg/dl Creatinine 0.93 (0.6-1.2) mg/dl Est Cr Clr Drug Dosing 35.2 ml/min Est GFR ( Amer) 64.0 ml/min Est GFR (Non-Af Amer) 55.3 ml/min BUN/Creatinine Ratio 32.3 H (10-20) Glucose 98 (70-99(Fasting)) mg/dl Calcium 9.4 (8.6-10.3) mg/dl Total Bilirubin 0.6 (0.2-1.0) mg/dl AST 17 (13-39) U/L ALT 20 (7-52) U/L Alkaline Phosphatase 69 (34-104) U/L Total Protein 5.6 L (6.0-8.3) gm/dl Albumin 3.3 L (3.4-5.0) gm/dl Globulin 2.3 L (2.5-4.0) gm/dl Albumin/Globulin Ratio 1.4 (0.9-2) Lipase 5 L (11-82) U/L Urine Color Yellow Urine Appearance Clear (Clear) Urine pH 6.0 (4.5-7.5) Ur Specific Oakes 1.018 (1.000-1.030) Urine Protein Negative (Negative) Urine Glucose (UA) Negative (Negative) Urine Ketones Negative (Negative) Urine Blood Negative (Negative) Urine Nitrite Negative (Negative) Urine Bilirubin Negative (Negative) Urine Urobilinogen Negative (Negative) Ur Leukocyte Esterase 2+ H (Negative) Urine WBC (Auto) 1-5 (0-5) /hpf Urine RBC (Auto) 0-4 (0-4) /hpf U Hyaline Cast (Auto) 0 (0-5) /lpf U Epithel Cells (Auto) 10-20 H (0-5) /lpf Urine Bacteria (Auto) Negative (Negative) SARS-CoV-2, RNA, NAAT (NEGATIVE) 07/31/22 Range/Units 20:45 WBC (4.8-10.8) K/ul RBC (4.20-5.40) M/uL Hgb (12.0-16.0) g/dl Hct (37.0-47.0) % MCV (80.0-100.0) fL MCH (25.0-34.0) pg MCHC (32.0-36.0) g/dL RDW Std Deviation (36.4-46.3) fL RDW Coeff of Rubina (11.5-14.5) % Plt Count (130-400) K/uL MPV (9.4-12.4) fL Immature Gran % (Auto) % Neut % (Auto) % Lymph % (Auto) % Love % (Auto) % Eos % (Auto) % Baso % (Auto) % Neut # (Auto) (1.40-6.50) K/uL Lymph # (Auto) (1.2-3.4) K/uL Love # (Auto) (0.11-0.59) K/uL Eos # (Auto) (0-0.50) K/uL Baso # (Auto) (0-0.2) K/uL Immature Gran # (Auto) (0.01-0.20) K/uL Sodium (136-145) mmol/L Potassium (3.5-5.1) mmol/L Chloride (98-107) mmol/L Carbon Dioxide (21-32) mmol/L Anion Gap (3-11) BUN (6-23) mg/dl Creatinine (0.6-1.2) mg/dl Est Cr Clr Drug Dosing ml/min Est GFR ( Amer) ml/min Est GFR (Non-Af Amer) ml/min BUN/Creatinine Ratio (10-20) Glucose (70-99(Fasting)) mg/dl Calcium (8.6-10.3) mg/dl Total Bilirubin (0.2-1.0) mg/dl AST (13-39) U/L ALT (7-52) U/L Alkaline Phosphatase (34-104) U/L Total Protein (6.0-8.3) gm/dl Albumin (3.4-5.0) gm/dl Globulin (2.5-4.0) gm/dl Albumin/Globulin Ratio (0.9-2) Lipase (11-82) U/L Urine Color Urine Appearance (Clear) Urine pH (4.5-7.5) Ur Specific Oakes (1.000-1.030) Urine Protein (Negative) Urine Glucose (UA) (Negative) Urine Ketones (Negative) Urine Blood (Negative) Urine Nitrite (Negative) Urine Bilirubin (Negative) Urine Urobilinogen (Negative) Ur Leukocyte Esterase (Negative) Urine WBC (Auto) (0-5) /hpf Urine RBC (Auto) (0-4) /hpf U Hyaline Cast (Auto) (0-5) /lpf U Epithel Cells (Auto) (0-5) /lpf Urine Bacteria (Auto) (Negative) SARS-CoV-2, RNA, NAAT NEGATIVE (NEGATIVE) Administered Medications Lactated Ringer's (Lr) 1,000 mls @ 80 mls/hr IV .[id number] THERESA Stop: 08/01/22 21:44 Last Admin: 07/31/22 22:37 Dose: 80 mls/hr Documented By: HH Discontinued Medications Sodium Chloride (Nss) 500 mls @ 999 mls/hr IV .Q31M ONE Stop: 07/31/22 17:58 Last Infusion: 07/31/22 18:44 Dose: 0 mls/hr Documented By: Admin: 07/31/22 17:53 Dose: 999 mls/hr Documented By: AB Ioversol (Optiray 350 100ml) 84 ml IV ONCE ONE Stop: 07/31/22 19:19 Last Admin: 07/31/22 19:18 Dose: 84 ml Documented By: AKIKO Imaging Data Radiologist's Impression: Chest X-Ray 07/31/22 16:48 XR chest 1V portable CLINICAL HISTORY: a-fib TECHNIQUE: Single frontal radiograph of the chest was obtained. Comparison: Comparison is made to chest radiograph 02/19/2022 FINDINGS: Bilateral shoulder arthroplasties are seen. Cardiomegaly is noted. The aortic arch is calcified. The lungs are clear. No evidence of pleural effusion or pneumothorax. A moderate hiatal hernia is seen. IMPRESSION: No acute abnormality is seen, in particular no evidence of pulmonary edema. ACT 112: Negative or not required by law. Electronically signed by: Aric Winn M.D. 07/31/2022 5:49 PM Abdomen/Pelvis CT 07/31/22 17:23 Exam(s): CT ABDOMEN + PELVIS With Contrast IV Amt: 84ml Optiray 350 EXAM: CT Abdomen and Pelvis With Intravenous Contrast CLINICAL HISTORY: abd pain ? sbo. TECHNIQUE: Axial computed tomography images of the abdomen and pelvis with intravenous contrast. CTDI is 9.21 mGy and DLP is 429.19 mGy-cm. Automated exposure control was utilized for the study. A dose lowering technique was utilized adhering to the principles of ALARA. CONTRAST: Patient received 84ml Optiray 350 of IV contrast COMPARISON: CT abdomen and pelvis with contrast 02/27/2022 FINDINGS: Limitations: There is respiratory artifact, which degrades image quality on multiple image slices. Lung bases: Unremarkable. No mass. No consolidation. Mediastinum: Similar hiatal hernia containing the majority of the body of the stomach in the posterior mediastinum. ABDOMEN: Liver: Unremarkable. No mass. Gallbladder and bile ducts: Unremarkable. No calcified stones. No ductal dilation. Pancreas: Unremarkable. No mass. No ductal dilation. Spleen: Unremarkable. No splenomegaly. Adrenals: Unremarkable. No mass. Kidneys and ureters: Kidneys are stable in appearance without hydronephrosis or obstructing nephrolithiasis. The previously noted dominant cyst involving the anterior aspect of the left kidney is now at significantly altered in size, measuring 4 cm in diameter. Stomach and bowel: Nonspecific fluid and gas dilation of the entire bowel similar in appearance to the previous examination, accounting for difference in oral contrast demonstration technique. No solitary transition point identified. Scattered diverticulosis involving the sigmoid colon. PELVIS: Appendix: No findings to suggest acute appendicitis. Bladder: Unremarkable. No mass. Reproductive: Unremarkable as visualized. ABDOMEN and PELVIS: Intraperitoneal space: Unremarkable. No free air. No significant fluid collection. Bones/joints: Similar grade 1 anterolisthesis of L5 on S1. Similar multilevel degenerative changes noted. No acute fracture. No dislocation. Soft tissues: Unremarkable. Vasculature: Unremarkable. No abdominal aortic aneurysm. Lymph nodes: Unremarkable. No enlarged lymph nodes. IMPRESSION: 1. Nonspecific fluid and gas dilation of the entire bowel similar in appearance to the previous examination, accounting for difference in oral contrast demonstration technique. No solitary transition point identified. Differential consideration includes enteritis or subtle small bowel obstruction. No free intraperitoneal fluid or definite pneumoperitoneum. 2. Similar hiatal hernia containing the majority of the body of the stomach in the posterior mediastinum. Electronically signed by: Jairon Milligan MD 07/31/22 20:08 PM Discharge Plan Visit Data Chief Complaint: Referred by Doctor Stated Complaint: REF BY DOC,STOMACH PAINS,BLOCKAGE BOWEL ED Provider: Michael Gates Discharge Problem: Small bowel obstruction, Abdominal pain Forms Stand Alone Forms: [facility] Prescriptions Prescriptions: No Action omeprazole 40 mg capsule,delayed release(DR/EC) 40 mg PO BID Qty: 180 3RF acetaminophen 500 mg capsule 500 mg PO BID Zioptan (PF) 0.0015 % dropperette 1 drp ophthalmic (eye) HS relief factor 4 tab PO BID metoprolol succinate 25 mg tablet extended release 24 hr 25 mg PO QAM Qty: 90 3RF ferrous sulfate [iron] 325 mg (65 mg iron) Tablet 65 mg PO QAM cholecalciferol (vitamin D3) [Vitamin D3] 50 mcg (2,000 unit) Capsule 50 mcg PO QAM Centrum Silver 0.4-300-250 mg-mcg-mcg Tablet 1 tab PO QAM PreserVision AREDS-2 [id number]-mg Capsule 1 tab PO BID calcium carbonate-vitamin D3 [Calcium 500 + D] 500 mg(1,250mg) -200 unit tablet 1 tab PO BID Prolia 60 mg/mL syringe 60 mg subcut Q6MO furosemide 40 mg tablet 40 mg PO QAM Referrals Referrals: Reji Vital DO [Primary Care Provider] -
--- NOTE | 2022-07-31 17:51 | XRay Report ---
XR chest 1V portable CLINICAL HISTORY: a-fib TECHNIQUE: Single frontal radiograph of the chest was obtained. Comparison: Comparison is made to chest radiograph 02/19/2022 FINDINGS: Bilateral shoulder arthroplasties are seen. Cardiomegaly is noted. The aortic arch is calcified. The lungs are clear. No evidence of pleural effusion or pneumothorax. A moderate hiatal hernia is seen. IMPRESSION: No acute abnormality is seen, in particular no evidence of pulmonary edema. ACT 112: Negative or not required by law. Electronically signed by: Aric Winn M.D. 07/31/2022 5:49 PM
[2022-07-31 18:07] LABS: Basophils # (auto) 0.02 K/uL (0-0.2); Basophils % (auto) 0.2 %; Eosinophils # (auto) 0.04 K/uL (0-0.50); Eosinophils % (auto) 0.4 %; Hematocrit (blood only) 36.5 % (37.0-47.0); Immature Granulocytes # (auto) 0.04 K/uL (0.01-0.20); Immature Granulocytes % (auto) 0.4 %; Lymphocytes # (auto) 1.67 K/uL (1.2-3.4); Lymphocytes % (auto) 15.2 %; Mean Corpuscular Hgb Conc 32.9 g/dL (32.0-36.0); Mean Corpuscular Volume 85.1 fL (80.0-100.0); Mean Platelet Volume 9.3 fL (9.4-12.4); Monocytes % (auto) 3.6 %; Neutrophils # (auto) 8.84 K/uL (1.40-6.50); Neutrophils % (auto) 80.2 %; Platelet Count 405 K/uL (130-400); RDW Standard Deviation 46.4 fL (36.4-46.3); Red Blood Count 4.29 M/uL (4.20-5.40); White Blood Count 11.01 K/ul (4.8-10.8)
[2022-07-31 18:20] LABS: Appearance Urine Clear (Clear); Bacteria Urine Automated Negative (Negative); Bilirubin Urine Negative (Negative); Blood Urine Negative (Negative); Cast Urine Automated 0 /lpf (0-5); Color Urine Yellow; Glucose Urine UA Negative (Negative); Ketones Urine Negative (Negative); Leukocyte Esterase Urine 2+ (Negative); Nitrite Urine Negative (Negative); Protein Urine Negative (Negative); RBC Urine Automated 0-4 /hpf (0-4); Specific Gravity Urine 1.018 (1.000-1.030); Urobilinogen Urine Negative (Negative)
[2022-07-31 18:41] LABS: Albumin Level 3.3 gm/dl (3.4-5.0); Bilirubin,Total 0.6 mg/dl (0.2-1.0); Calcium 9.4 mg/dl (8.6-10.3); Potassium 3.8 mmol/L (3.5-5.1)
[2022-07-31 18:47] LABS: Albumin Globulin Ratio 1.4 (0.9-2); BUN Creatinine Ratio 32.3 (10-20); Creatinine Clr Calc Pharmacy 35.2 ml/min; Est GFR (Non-African American) 55.3 ml/min; Globulin 2.3 gm/dl (2.5-4.0); Total Protein 5.6 gm/dl (6.0-8.3)
[2022-07-31] MEDS ORDERED: OPTIRAY 350 100ml IV ONE (19:18)
--- NOTE | 2022-07-31 20:09 | CT Scan Report ---
Exam(s): CT ABDOMEN + PELVIS With Contrast IV Amt: 84ml Optiray 350 EXAM: CT Abdomen and Pelvis With Intravenous Contrast CLINICAL HISTORY: abd pain ? sbo. TECHNIQUE: Axial computed tomography images of the abdomen and pelvis with intravenous contrast. CTDI is 9.21 mGy and DLP is 429.19 mGy-cm. Automated exposure control was utilized for the study. A dose lowering technique was utilized adhering to the principles of ALARA. CONTRAST: Patient received 84ml Optiray 350 of IV contrast COMPARISON: CT abdomen and pelvis with contrast 02/27/2022 FINDINGS: Limitations: There is respiratory artifact, which degrades image quality on multiple image slices. Lung bases: Unremarkable. No mass. No consolidation. Mediastinum: Similar hiatal hernia containing the majority of the body of the stomach in the posterior mediastinum. ABDOMEN: Liver: Unremarkable. No mass. Gallbladder and bile ducts: Unremarkable. No calcified stones. No ductal dilation. Pancreas: Unremarkable. No mass. No ductal dilation. Spleen: Unremarkable. No splenomegaly. Adrenals: Unremarkable. No mass. Kidneys and ureters: Kidneys are stable in appearance without hydronephrosis or obstructing nephrolithiasis. The previously noted dominant cyst involving the anterior aspect of the left kidney is now at significantly altered in size, measuring 4 cm in diameter. Stomach and bowel: Nonspecific fluid and gas dilation of the entire bowel similar in appearance to the previous examination, accounting for difference in oral contrast demonstration technique. No solitary transition point identified. Scattered diverticulosis involving the sigmoid colon. PELVIS: Appendix: No findings to suggest acute appendicitis. Bladder: Unremarkable. No mass. Reproductive: Unremarkable as visualized. ABDOMEN and PELVIS: Intraperitoneal space: Unremarkable. No free air. No significant fluid collection. Bones/joints: Similar grade 1 anterolisthesis of L5 on S1. Similar multilevel degenerative changes noted. No acute fracture. No dislocation. Soft tissues: Unremarkable. Vasculature: Unremarkable. No abdominal aortic aneurysm. Lymph nodes: Unremarkable. No enlarged lymph nodes. IMPRESSION: 1. Nonspecific fluid and gas dilation of the entire bowel similar in appearance to the previous examination, accounting for difference in oral contrast demonstration technique. No solitary transition point identified. Differential consideration includes enteritis or subtle small bowel obstruction. No free intraperitoneal fluid or definite pneumoperitoneum. 2. Similar hiatal hernia containing the majority of the body of the stomach in the posterior mediastinum. Electronically signed by: Jairon Milligan MD 07/31/22 20:08 PM
[2022-07-31] MEDS ORDERED: MoRPHine SULFATE 2 MG/ML CARP IV PRN (20:42)
[2022-07-31] MEDS ORDERED: LACTATED RINGER'S 1,000 ML IV SCH (20:45)
[2022-07-31] MEDS ORDERED: ONDANSETRON INJ 2 MG/ML 2 ML VIAL IV PRN (20:46)
--- NOTE | 2022-07-31 21:13 | History & Physical Report ---
Date of Service July 31, 2022 Assessment & Plan (1) Small bowel obstruction: Plan: 86yo female presenting with lower abdominal pain. Imaging suggestive of enteritis vs SBO. No free fluid or pneumoperitoneum -Admit to medical -Keep NPO -IVF and electrolyte repletion -Pain control and anti-emetics PRN -Appreciate General Surgery -KUB in AM ordered for 06:00 -C.diff and Stool GI panel ordered -lactate ordered for AM labs (2) Atrial fibrillation: Plan: Rate controlled -Continue metoprolol 25mg po qAM No anticoagulation for now - will need to be discussed prior to DC F/E/N - LR at 80mL/hr, electrolytes WNL, NPO for now Ppx - Lovenox 40 Code - Full Dispo - Admit to medical History of Present Illness Chief Complaint: Abdominal pain Primary Care Provider: Reji Vital DO Lori Clemons is a pleasant 86yo female with history of prior SBO in February 2022, AF, VT, GERD presenting with two weeks of loose stools and one day of lower abdominal pain. Pain is lower abdomen, bandlike, worse with coughing and deep breathing. She was seen by her PCP today and sent to the ER for further workup. Patient found to be in atrial fibrillation. Was in atrial fib in the past postoperatively. She also notes increased LE edema. 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 Patient is passing gas. Last BM this morning. Denies fever, chills, chest pain, cough, SOB. NO additional complaints Allergies Allergy/AdvReac Type Severity Reaction Status Date / Time acetaminophen [From Percocet] Allergy Mild itching Verified 07/31/22 15:09 oxycodone [From Percocet] Allergy Mild itching Verified 07/31/22 15:09 Penicillins Allergy Mild Rash Verified 07/31/22 15:09 aspirin AdvReac Unknown unknown Verified 07/31/22 15:09 reaction- ? related to ulcer hx celecoxib AdvReac Unknown ulcer hx Verified 07/31/22 15:09 NSAIDS (Non-Steroidal AdvReac Unknown unknown Verified 07/31/22 15:09 Anti-Inflamma reaction- ? related to ulcer hx Home Medications Medication Instructions Recorded Confirmed Type [id number] acid 0.4 1 tab PO QAM 05/05/18 07/31/22 History mg-lycopene 300 mcg-lutein 250 mcg tablet (Centrum Silver) vit C 250 mg-vit E 90 mg-zinc 40 1 tab PO BID 05/05/18 07/31/22 History mg-copper 1 [id number] capsule (PreserVision AREDS-2) calcium carbonate 500 mg-vitamin 1 tab PO BID 12/18/18 07/31/22 History D3 5 mcg (200 unit) tablet (Calcium 500 + D) denosumab 60 mg/mL subcutaneous 60 mg subcut Q6MO 03/24/19 07/31/22 History syringe (Prolia) cholecalciferol (vitamin D3) 50 50 mcg PO QAM 04/19/19 07/31/22 History mcg (2,000 unit) capsule (Vitamin D3) ferrous sulfate 325 mg (65 mg 65 mg PO QAM 04/19/19 07/31/22 History iron) tablet (iron) acetaminophen 500 mg capsule 500 mg PO BID 09/15/19 07/31/22 History tafluprost (PF) 0.0015 % eye drops 1 drp ophthalmic (eye) HS 09/21/20 07/31/22 History in a dropperette (Zioptan (PF)) omeprazole 40 mg capsule,delayed 40 mg PO BID #180 caps 12/06/21 07/31/22 Rx release metoprolol succinate 25 mg 25 mg PO QAM #90 tabs 05/03/22 07/31/22 Rx tablet,extended release 24 hr furosemide 40 mg tablet 40 mg PO QAM 07/31/22 07/31/22 History relief factor 4 tab PO BID 07/31/22 07/31/22 History Past Med/Surg History Medical History Abnormal ankle brachial index (~2021) No occulsive disease US Anosmia Aortic valve sclerosis Atrial tachycardia Barretts esophagus Deaf left ear GERD (gastroesophageal reflux disease) 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 She is managed with esomeprazole 40mg daily + ranitidine 300mg QHS. Glaucoma Heart failure with preserved ejection fraction Hernia, internal History of atrial fibrillation HAD POST OP EPISODE - CURRENTLY CONTROLLED BY MEDS History of breast cancer Followed by Cancer care, history of infiltrating ductal carcinoma of the right breast, initially diagnosed (04/24). She had a partial mastectomy and sentinel node biopsy (05/25). She is followed by oncology. History of GI bleed Remote hx, possibly d/t nsaids History of skin cancer Macular degeneration Osteoarthritis b/l shoulder replacemnt, b/l knee pain Osteoporosis Paroxysmal atrial tachycardia Paroxysmal ventricular tachycardia Peripheral neuropathy Postoperative atrial fibrillation Small bowel obstruction Traumatic open wound of right lower leg Venous insufficiency Surgical History Adverse anesthesia outcome " ANESTHESIA NERVE BLOCK DID NOT WORK" History of arthroplasty of left shoulder History of esophagogastroduodenoscopy (EGD) History of gastric polyp s/p resection History of knee replacement procedure of left knee History of knee replacement procedure of right knee Post op developed pseudomonas - had to have revision History of total replacement of right shoulder joint Hx of bilateral cataract extraction Hx of colonoscopy Hx of hernia repair Hx of partial mastectomy right Hx of tonsillectomy Family History Mother Family history of diabetes mellitus (DM) Breast cancer Hypertension Diabetes Father Myocardial infarction Hypertension Arthritis Unknown Alzheimer disease Denies family history of Ovarian cancer Prostate cancer Lung cancer Colorectal cancer Social History Smoking Status: Never smoker Second Hand Exposure: No; Do You Dip or Chew Tobacco: No; Tobacco Cessation Education Requested by Patient: No Hx Alcohol Use: Yes Alcohol type: wine Alcohol Intake Frequency: Monthly or Less Alcohol Intake Frequency Comment: social Hx Substance Use: No Preferred Language: Arabic Communication Ability: Effective Communication Ability Comment: deaf in left ear Visual Impairment: Limited Hearing Ability: Hard of Hearing 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 Beliefs That Will Affect Care: None marital status: Current Living Situation: Spouse current occupational status: retired current occupation: Owns a business How many Children do You have: 2 Other Information That Helps Us Care for You: No Feels Safe at Home: Yes Safety Concerns: Feels Safe At This Time Childhood Exposure to Second-Hand Smoke: No caffeine: Yes (coffee ) Dental Care, Regularly: Yes Physical Activity Frequency: Daily Physical Activity Frequency Comment: walks alot steps, also gardens every morning Seatbelt Use: sometimes Sunscreen Use: Yes Assistive Devices: Glasses Review of Systems Review of Systems: All systems reviewed & are unremarkable except as noted in HPI & below Physical Exam Physical Exam: General: patient resting comfortably, NAD, non-toxic in appearance, AA&O x 4 Skin: warm, dry, intact, no rashes or lesions HEENT: NC/AT, PERRL, EOMI, anicteric sclera, conjunctiva without injection, external ear normal to inspection and nontender, nares patent, moist mucus membranes, dentition intact, no oropharyngeal lesions, neck supple, trachea midline, no LAD, no thyromegaly, no JVD Heart: +S1/S2, irregularly irregular, no m/r/g Lungs: equal air entry bilaterally, no rales/rhonchi/wheezes Abd: +BS, soft,tender int he lower abdomen with some voluntary guarding, no masses/organomegaly/ascites Ext: warm, 2+ pulses in UE/LE bilaterally, no clubbing/cyanosis, 2+ edema of bilateral LE Neuro: nonfocal, patient AA&O x 4, speech intact, no facial droop, moving all extremities on command with equal strength 5/5 Results & Data Results & Data Vital Signs (Past 12 Hours) Vital Signs Temp Pulse Pulse Resp BP BP Pulse Ox 07/31/22 20:42 73 18 93/63 L 99 07/31/22 18:23 71 18 109/70 96 07/31/22 16:46 36.8 C 97 H 18 106/72 93 O2 Del Method 07/31/22 20:42 Room Air 07/31/22 18:23 Room Air 07/31/22 16:46 Room Air Laboratory Results Laboratory Results WBC 11.01 K/ul (4.8-10.8) H 07/31/22 17:23 RBC 4.29 M/uL (4.20-5.40) 07/31/22 17:23 Hgb 12.0 g/dl (12.0-16.0) 07/31/22 17:23 Hct 36.5 % (37.0-47.0) L 07/31/22 17:23 MCV 85.1 fL (80.0-100.0) 07/31/22 17:23 MCH 28.0 pg (25.0-34.0) 07/31/22 17:23 MCHC 32.9 g/dL (32.0-36.0) 07/31/22: RDW Std Deviation 46.4 fL (36.4-46.3) H 07/31/22: RDW Coeff of Rubina 15.0 % (11.5-14.5) H 07/31/22: Plt Count 405 K/uL (130-400) H 07/31/22: MPV 9.3 fL (9.4-12.4) L 07/31/22 17: Immature Gran % (Auto) 0.4 % 07/31/22 17: Neut % (Auto) 80.2 % 07/31/22: Lymph % (Auto) 15.2 % 07/31/22: Carter % (Auto) 3.6 % 07/31/22: Eos % (Auto) 0.4 % 07/31/22: Baso % (Auto) 0.2 % 07/31/22: Neut # (Auto) 8.84 K/uL (1.40-6.50) H 07/31/22: Lymph # (Auto) 1.67 K/uL (1.2-3.4) 07/31/22: Carter # (Auto) 0.40 K/uL (0.11-0.59) 07/31/22: Eos # (Auto) 0.04 K/uL (0-0.50) 07/31/22: Baso # (Auto) 0.02 K/uL (0-0.2) 07/31/22: Immature Gran # (Auto) 0.04 K/uL (0.01-0.20) 07/31/22 17: Sodium 140 mmol/L (136-145) 07/31/22 17: Potassium 3.8 mmol/L (3.5-5.1) 07/31/22: Chloride 102 mmol/L (98-107) 07/31/22 17: Carbon Dioxide 31 mmol/L (21-32) 07/31/22 17: Anion Gap 7 (3-11) 07/31/22 17: BUN 30 mg/dl (6-23) H 07/31/22 17: Creatinine 0.93 mg/dl (0.6-1.2) 07/31/22 17: Est Cr Clr Drug Dosing 35.2 ml/min 07/31/22 17: Est GFR ( Amer) 64.0 ml/min 07/31/22 17: Est GFR (Non-Af Amer) 55.3 ml/min 07/31/22 17: BUN/Creatinine Ratio 32.3 (10-20) H 07/31/22 17: Glucose 98 mg/dl (70-99(Fasting)) 07/31/22 17: Calcium 9.4 mg/dl (8.6-10.3) 07/31/22: Magnesium 1.3 mg/dl (1.7-2.4) L 07/31/22 17: Total Bilirubin 0.6 mg/dl (0.2-1.0) 07/31/22: AST 17 U/L (13-39) 07/31/22 17: ALT 20 U/L (7-52) 07/31/22 17: Alkaline Phosphatase 69 U/L (34-104) 07/31/22 17:23 Total Protein 5.6 gm/dl (6.0-8.3) L 07/31/22 17: Albumin 3.3 gm/dl (3.4-5.0) L 07/31/22: Globulin 2.3 gm/dl (2.5-4.0) L 07/31/22 17: Albumin/Globulin Ratio 1.4 (0.9-2) 07/31/22 17: Lipase 5 U/L (11-82) L 07/31/22 17:23 Urine Color Yellow 07/31/22 17:57 Urine Appearance Clear (Clear) 07/31/22 17:57 Urine pH 6.0 (4.5-7.5) 07/31/22 17:57 Ur Specific Mcgrady 1.018 (1.000-1.030) 07/31/22 17:57 Urine Protein Negative (Negative) 07/31/22 17:57 Urine Glucose (UA) Negative (Negative) 07/31/22 17:57 Urine Ketones Negative (Negative) 07/31/22 17:57 Urine Blood Negative (Negative) 07/31/22 17:57 Urine Nitrite Negative (Negative) 07/31/22 17:57 Urine Bilirubin Negative (Negative) 07/31/22 17:57 Urine Urobilinogen Negative (Negative) 07/31/22 17:57 Ur Leukocyte Esterase 2+ (Negative) H 07/31/22 17:57 Urine WBC (Auto) 1-5 /hpf (0-5) 07/31/22 17:57 Urine RBC (Auto) 0-4 /hpf (0-4) 07/31/22 17:57 U Hyaline Cast (Auto) 0 /lpf (0-5) 07/31/22 17:57 U Epithel Cells (Auto) 10-20 /lpf (0-5) H 07/31/22 17:57 Urine Bacteria (Auto) Negative (Negative) 07/31/22 17:57 SARS-CoV-2, RNA, NAAT NEGATIVE (NEGATIVE) 07/31/22 20:45 Impressions Chest X-Ray 07/31/22 16:48 XR chest 1V portable CLINICAL HISTORY: a-fib TECHNIQUE: Single frontal radiograph of the chest was obtained. Comparison: Comparison is made to chest radiograph 02/19/2022 FINDINGS: Bilateral shoulder arthroplasties are seen. Cardiomegaly is noted. The aortic arch is calcified. The lungs are clear. No evidence of pleural effusion or pneumothorax. A moderate hiatal hernia is seen. IMPRESSION: No acute abnormality is seen, in particular no evidence of pulmonary edema. ACT 112: Negative or not required by law. Electronically signed by: Aric Winn M.D. 07/31/2022 5:49 PM Abdomen/Pelvis CT 07/31/22 17:23 Exam(s): CT ABDOMEN + PELVIS With Contrast IV Amt: 84ml Optiray 350 EXAM: CT Abdomen and Pelvis With Intravenous Contrast CLINICAL HISTORY: abd pain ? sbo. TECHNIQUE: Axial computed tomography images of the abdomen and pelvis with intravenous contrast. CTDI is 9.21 mGy and DLP is 429.19 mGy-cm. Automated exposure control was utilized for the study. A dose lowering technique was utilized adhering to the principles of ALARA. CONTRAST: Patient received 84ml Optiray 350 of IV contrast COMPARISON: CT abdomen and pelvis with contrast 02/27/2022 FINDINGS: Limitations: There is respiratory artifact, which degrades image quality on multiple image slices. Lung bases: Unremarkable. No mass. No consolidation. Mediastinum: Similar hiatal hernia containing the majority of the body of the stomach in the posterior mediastinum. ABDOMEN: Liver: Unremarkable. No mass. Gallbladder and bile ducts: Unremarkable. No calcified stones. No ductal dilation. Pancreas: Unremarkable. No mass. No ductal dilation. Spleen: Unremarkable. No splenomegaly. Adrenals: Unremarkable. No mass. Kidneys and ureters: Kidneys are stable in appearance without hydronephrosis or obstructing nephrolithiasis. The previously noted dominant cyst involving the anterior aspect of the left kidney is now at significantly altered in size, measuring 4 cm in diameter. Stomach and bowel: Nonspecific fluid and gas dilation of the entire bowel similar in appearance to the previous examination, accounting for difference in oral contrast demonstration technique. No solitary transition point identified. Scattered diverticulosis involving the sigmoid colon. PELVIS: Appendix: No findings to suggest acute appendicitis. Bladder: Unremarkable. No mass. Reproductive: Unremarkable as visualized. ABDOMEN and PELVIS: Intraperitoneal space: Unremarkable. No free air. No significant fluid collection. Bones/joints: Similar grade 1 anterolisthesis of L5 on S1. Similar multilevel degenerative changes noted. No acute fracture. No dislocation. Soft tissues: Unremarkable. Vasculature: Unremarkable. No abdominal aortic aneurysm. Lymph nodes: Unremarkable. No enlarged lymph nodes. IMPRESSION: 1. Nonspecific fluid and gas dilation of the entire bowel similar in appearance to the previous examination, accounting for difference in oral contrast demonstration technique. No solitary transition point identified. Differential consideration includes enteritis or subtle small bowel obstruction. No free intraperitoneal fluid or definite pneumoperitoneum. 2. Similar hiatal hernia containing the majority of the body of the stomach in the posterior mediastinum. Electronically signed by: Jairon Milligan MD 07/31/22 20:08 PM Code Status & VTE Plan VTE Prophylaxis Plan VTE Prophylaxis will be ordered: Yes PG Care Time/CCT Total # of Minutes Spent Total Time Spent with Patient: Total time spent is greater than 50% in coordination of care (as documented) at patient's floor/unit and/or counseling patient: Coding Level of Care Code 45534 INT INP/OBS CARE 2/MIN Diagnoses Small bowel obstruction K56.609 Atrial fibrillation I48.91
--- NOTE | 2022-07-31 21:59 | Surgery Consultation ---
Date of Consultation July 31, 2022 Assessment & Plan (1) Small bowel obstruction: The patient is being admitted on the hospitalist service. We recommend proceeding as follows: Implement n.p.o. status Hydration measures with IV fluids to be employed Provide analgesics Provide antiemetics At the present time the patient is not exhibiting any nausea or vomiting and has not had any since the onset of her symptoms. I therefore feel we can hold off on placing an NG tube at this time. If the patient has any worsening of her abdominal exam or symptomatology such as development of nausea or vomiting we have may have to revisit this modality. Follow serial abdominal exams Additional recommendations to follow based on patient's clinical course as it unfolds. I did discuss with the patient that we will attempt to treat this in a conservative manner as noted above. We did discuss that if she does not clinically improve surgery may be required but at the present time we will again employ conservative manners as noted above. Supervising Physician Co-Signing Physician Notes Patient discussed with Bryce Sexton overnight, imaging reviewed, agree with above. Patient with several week history of diarrhea, presented with abdominal pain. Personally viewed CT scan and note that this is likely an enteritis or ileus, less likely a small bowel obstruction as there is no transition point. She was admitted for nonoperative management no NG tube was placed. See today's progress note for further details. History of Present Illness Reason for Consultation: Concern for small bowel obstruction History of Present Illness This is an 86-year-old female who presented to [facility] emergency department at the recommendation of her primary care team. The patient notes that she has been having diarrhea for approximately 2 weeks so she scheduled an appoint with her primary care physician. She notes that she was able to see her primary care team today and she does note that the diarrhea did eloy somewhat. She reports having a bowel movement today and it was somewhat loose however. She has not had any fevers, shakes, or chills. She has not had any nausea or vomiting. She did note however that patient had severe upper abdominal pain earlier today. She does not note any radiation of the pain. She also denies any modifying factors related to the pain. She further relates that when she was in the primary care physician's office she was told that she was in atrial fibrillation. She further relates that she did have a history of atrial fibrillation in the past as this was noted when she was undergoing an orthopedic procedure. She notes that she does not take any anticoagulants for this. I did question the patient on previous surgeries and she notes that she did have an umbilical hernia repair with mesh approximately 10 years ago. She also notes that she did have a partial small bowel obstruction in February 2022. She was hospitalized from February 25 through of this year and her small bowel obstruction was treated successfully in a conservative manner. She says that she did not require an NG tube to be placed. Concerning cardiovascular history the patient does report a history of atrial fibrillation that she says was noted when she was undergoing an orthopedic procedure on her shoulder. As noted she does not take anticoagulation. The patient does had an echocardiogram that was available for my review from January 2019. On this study the patient was noted to have a 65 to 70% ejection fraction with no regional wall motion abnormalities. There is aortic valve sclerosis without significant aortic stenosis. There is mild mitral regurgitation. The patient was noted to be in sinus rhythm on this study. Since arrival to the hospital the patient has had labs and imaging which independent reviewed. A chest x-ray showed no evidence of free air and no evidence of pneumonia. A CT scan of the abdomen pelvis showed the patient had fluid and gas dilatation of the entire bowel. There is no discrete transition point to suggest a small small bowel obstruction. I do not appreciate any intraperitoneal fluid or free air. The interpreting radiologist felt the differential could include an enteritis or a subtotal small bowel obstruction. Although not commented on by the radiologist it did appear as though the patient had a large hiatal hernia. Labs include a CBC her white blood cell count was 11.0. Hemoglobin was normal with a hematocrit of 36.5. Platelet count was 4- 5000. Chemistry profile showed sodium and potassium were normal. Her BUN was 30 but creatinine was normal. There is no elevation of her LFTs or lipase. Urinalysis showed 2+ leukocyte Estrace but was otherwise not indicative of infection. A COVID test was negative. Patient did have an initial EKG performed in the emergency department that showed that she was in sinus rhythm. Following my visit with the patient an EKG was repeated that again confirmed normal sinus rhythm. At the time of my interview the patient was resting comfortably in bed and she was in no distress. Allergies Allergy/AdvReac Type Severity Reaction Status Date / Time acetaminophen [From Percocet] Allergy Mild itching Verified 07/31/22 15:09 oxycodone [From Percocet] Allergy Mild itching Verified 07/31/22 15:09 Penicillins Allergy Mild Rash Verified 07/31/22 15:09 aspirin AdvReac Unknown unknown Verified 07/31/22 15:09 reaction- ? related to ulcer hx celecoxib AdvReac Unknown ulcer hx Verified 07/31/22 15:09 NSAIDS (Non-Steroidal AdvReac Unknown unknown Verified 07/31/22 15:09 Anti-Inflamma reaction- ? related to ulcer hx Home Medications Medication Instructions Recorded Confirmed Type [id number] acid 0.4 1 tab PO QAM 05/05/18 07/31/22 History mg-lycopene 300 mcg-lutein 250 mcg tablet (Centrum Silver) vit C 250 mg-vit E 90 mg-zinc 40 1 tab PO BID 05/05/18 07/31/22 History mg-copper 1 [id number] capsule (PreserVision AREDS-2) calcium carbonate 500 mg-vitamin 1 tab PO BID 12/18/18 07/31/22 History D3 5 mcg (200 unit) tablet (Calcium 500 + D) denosumab 60 mg/mL subcutaneous 60 mg subcut Q6MO 03/24/19 07/31/22 History syringe (Prolia) cholecalciferol (vitamin D3) 50 50 mcg PO QAM 04/19/19 07/31/22 History mcg (2,000 unit) capsule (Vitamin D3) ferrous sulfate 325 mg (65 mg 65 mg PO QAM 04/19/19 07/31/22 History iron) tablet (iron) acetaminophen 500 mg capsule 500 mg PO BID 09/15/19 07/31/22 History tafluprost (PF) 0.0015 % eye drops 1 drp ophthalmic (eye) HS 09/21/20 07/31/22 History in a dropperette (Zioptan (PF)) omeprazole 40 mg capsule,delayed 40 mg PO BID #180 caps 12/06/21 07/31/22 Rx release metoprolol succinate 25 mg 25 mg PO QAM #90 tabs 05/03/22 07/31/22 Rx tablet,extended release 24 hr furosemide 40 mg tablet 40 mg PO QAM 07/31/22 07/31/22 History relief factor 4 tab PO BID 07/31/22 07/31/22 History Patient History Medical History Abnormal ankle brachial index (~2021) No occulsive disease US Anosmia Aortic valve sclerosis Atrial tachycardia Barretts esophagus Deaf left ear GERD (gastroesophageal reflux disease) 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 She is managed with esomeprazole 40mg daily + ranitidine 300mg QHS. Glaucoma Heart failure with preserved ejection fraction Hernia, internal History of atrial fibrillation HAD POST OP EPISODE - CURRENTLY CONTROLLED BY MEDS History of breast cancer Followed by Cancer care, history of infiltrating ductal carcinoma of the right breast, initially diagnosed (04/24). She had a partial mastectomy and sentinel node biopsy (05/25). She is followed by oncology. History of GI bleed Remote hx, possibly d/t nsaids History of skin cancer Macular degeneration Osteoarthritis b/l shoulder replacemnt, b/l knee pain Osteoporosis Paroxysmal atrial tachycardia Paroxysmal ventricular tachycardia Peripheral neuropathy Postoperative atrial fibrillation Small bowel obstruction Traumatic open wound of right lower leg Venous insufficiency Surgical History Adverse anesthesia outcome " ANESTHESIA NERVE BLOCK DID NOT WORK" History of arthroplasty of left shoulder History of esophagogastroduodenoscopy (EGD) History of gastric polyp s/p resection History of knee replacement procedure of left knee History of knee replacement procedure of right knee Post op developed pseudomonas - had to have revision History of total replacement of right shoulder joint Hx of bilateral cataract extraction Hx of colonoscopy Hx of hernia repair Hx of partial mastectomy right Hx of tonsillectomy Family History Mother Family history of diabetes mellitus (DM) Breast cancer Hypertension Diabetes Father Myocardial infarction Hypertension Arthritis Unknown Alzheimer disease Denies family history of Ovarian cancer Prostate cancer Lung cancer Colorectal cancer Social History Smoking Status: Never smoker Second Hand Exposure: No; Do You Dip or Chew Tobacco: No; Tobacco Cessation Education Requested by Patient: No Hx Alcohol Use: Yes Alcohol type: wine Alcohol Intake Frequency: Monthly or Less Alcohol Intake Frequency Comment: social Hx Substance Use: No Preferred Language: Spanish Communication Ability: Effective Communication Ability Comment: deaf in left ear Visual Impairment: Limited Hearing Ability: Hard of Hearing Contracting Manager Required: No Beliefs That Will Affect Care: None marital status: Current Living Situation: Spouse current occupational status: retired current occupation: Owns a business How many Children do You have: 2 Other Information That Helps Us Care for You: No Feels Safe at Home: Yes Safety Concerns: Feels Safe At This Time Childhood Exposure to Second-Hand Smoke: No caffeine: Yes (coffee ) Dental Care, Regularly: Yes Physical Activity Frequency: Daily Physical Activity Frequency Comment: walks alot steps, also gardens every morning Seatbelt Use: sometimes Sunscreen Use: Yes Assistive Devices: None Review of Systems Constitutional: no fever and no chills Eyes: + corrective lenses Ear, Nose, Mouth, Throat: no ear pain Respiratory: no cough and no dyspnea Cardiovascular: no chest pain Gastrointestinal: as per Subjective / HPI Genitourinary: no dysuria Musculoskeletal: no back pain Integumentary: no rash Neurologic: no localized weakness Physical Exam Constitutional: WD/WN, vitals as above Eyes: Wears glasses ENMT: Ears: no hearing impairment and no external ear abnormality Mouth: no oropharynx abnormality Neck: trachea midline Respiratory: normal respiratory effort, lungs clear to auscultation Cardiovascular: Rate/Rhythm: regular rate and regular rhythm Heart Sounds: + murmur (Systolic murmur heard best at the left of the sternal border in the second ) Vessels: dorsalis pedis pulses present and radial pulses present Gastrointestinal (Abdomen): Abdomen is minimally distended but overall soft and nonrigid. Bowel sounds are hyperactive. The patient did have pain with palpation particularly in the upper abdomen in a bandlike fashion. There is slight rebound tenderness noted. Musculoskeletal: No calf tenderness Skin: no rashes Neurologic: moves all extremities Results & Data Vital Signs (Past 12 Hours) Vital Signs Temp Pulse Pulse Resp BP BP Pulse Ox 07/31/22 20:42 73 18 93/63 L 99 07/31/22 18:23 71 18 109/70 96 07/31/22 16:46 36.8 C 97 H 18 106/72 93 O2 Del Method 07/31/22 20:42 Room Air 07/31/22 18:23 Room Air 07/31/22 16:46 Room Air PG Care Time/CCT Total # of Minutes Spent Total Time Spent with Patient: Total time spent is greater than 50% in coordination of care (as documented) at patient's floor/unit and/or counseling patient: Coding Level of Care Code 89994 INT INP/OBS CARE MIN Diagnoses Small bowel obstruction K56.609
[2022-08-01] MEDS: ENOXAPARIN INJ 40 MG/0.4 ML SYR SQ SCH (05:25)
[2022-08-01 06:55] LABS: Basophils # (auto) 0.02 K/uL (0-0.2); Basophils % (auto) 0.4 %; Eosinophils # (auto) 0.09 K/uL (0-0.50); Eosinophils % (auto) 1.7 %; Hematocrit (blood only) 28.3 % (37.0-47.0); Hemoglobin 9.4 g/dl (12.0-16.0); Immature Granulocytes # (auto) 0.01 K/uL (0.01-0.20); Immature Granulocytes % (auto) 0.2 %; Lymphocytes # (auto) 1.24 K/uL (1.2-3.4); Lymphocytes % (auto) 24.1 %; Mean Corpuscular Hemoglobin 28.2 pg (25.0-34.0); Mean Corpuscular Hgb Conc 33.2 g/dL (32.0-36.0); Monocytes % (auto) 5.8 %; Neutrophils # (auto) 3.49 K/uL (1.40-6.50); Neutrophils % (auto) 67.8 %; Platelet Count 245 K/uL (130-400); RDW Coefficient of Variation 15.1 % (11.5-14.5); RDW Standard Deviation 46.5 fL (36.4-46.3); Red Blood Count 3.33 M/uL (4.20-5.40); White Blood Count 5.15 K/ul (4.8-10.8)
[2022-08-01 07:14] LABS: Albumin Level 2.4 gm/dl (3.4-5.0); Bilirubin,Total 0.5 mg/dl (0.2-1.0); Magnesium 1.3 mg/dl (1.7-2.4); Potassium 3.4 mmol/L (3.5-5.1)
[2022-08-01 07:16] LABS: INR 1.1 (0.9-1.1); Prothrombin Time 11.2 Seconds (9.0-12.0)
[2022-08-01 07:21] LABS: Albumin Globulin Ratio 1.5 (0.9-2); BUN Creatinine Ratio 31.8 (10-20); Creatinine Clr Calc Pharmacy 49.3 ml/min; Est GFR (African American) 92.1 ml/min; Est GFR (Non-African American) 79.4 ml/min; Globulin 1.6 gm/dl (2.5-4.0)
--- NOTE | 2022-08-01 08:23 | Hospitalist Progress Note ---
Date of Service August 01, 2022 Assessment & Plan (1) Small bowel obstruction: Plan: 86yo female with PMHx significant for HFpEF, GERD, hernia repair, SBO in February 2022 --> presenting with lower abdominal pain and two weeks of loose stools Imaging suggestive of enteritis vs SBO. No free fluid or pneumoperitoneum CTAP 1. Nonspecific fluid and gas dilation of the entire bowel similar in appearance to the previous examination, accounting for difference in oral contrast demonstration technique. No solitary transition point identified. Differential consideration includes enteritis or subtle small bowel obstruction. No free intraperitoneal fluid or definite pneumoperitoneum. 2. Similar hiatal hernia containing the majority of the body of the stomach in the posterior mediastinum. Continue NPO IVF replacement-- added 20meq Kcl to IVF for low K 3.4 on AM labs Mag 1.3, repeat remains 1.3--> IV replacement for 3gm IV ordered Lactic 0.4 WBC normalized, afebrile Protonix IV daily -- moderate hiatal hernia seen on CXR Surgery on consult KUB for this morning pending -- passing gas/no BM. Will hold off on diet for now, ambulation encouraged. F/u official read Stool/cdiff ordered when able to collect Pain control/antiemetics prn Montior labs in AM (2) Atrial fibrillation: Plan: Rate controlled -- per prior record was initially worked up for afib during v isit prior to Feb 2022 and had atrial tachycardia and not afib and no AC was recommended Continue metoprolol 25mg po qAM (held this morning given lower BPs, HR controlled) No anticoagulation for now - will need to be discussed prior to DC Mag 1.3--> IV replacement ordered. Will repeat EKG following. Check TSH as appears last in system was 2019 (3) Heart failure with preserved ejection fraction: Plan: prior reported history on lasix 40mg daily, BB outpatient but doesn't have official data conversion developer afib after shoulder surgery felt atrial tachycardia Repeating echo given murmur/abd symptoms -- patient does have f/u appt made to establish care w/ Dr Dobbs next month. Trop not elevated on admit but will repeat given some depressions on EKG (also low mag as above/K) Monitor daily weights/I&O Does not appear overloaded at present but will monitor (4) Hypomagnesemia: Plan: chemistry reviewed -> mag 1.3, K 3.4. Likley 2nd to diarrheal loses/possible diuretic therapy added K to IVF, IV mag replacement Keep K ~4, Mag ~2 w/ SBO above Monitor labs on repeat in AM Plan Ppx - Lovenox 40 while inpatient Admission and Anticipated Discharge Date Admission Date: July 31, 2022 Supervising Physician Co-Signing Physician Notes The patient was not seen by me. The chart was reviewed. Case discussed with TAMERA Benoit. Agree with assessment and plan Subjective eval this morning. doing alright having some pain across her mid abdomen, reporting passing some gas. Reports loose stools for about 2 weeks. No blood. No recent abx use. No recent ill contacts/fevers/chills. On omeprazole outpatient for her reflux -- on protonix while inpatient. Was hospitalized for SBO in February, reports was here for about 4-5 days. General surgery consulted and following. Ambulation encouraged-- discussed monitoring KUB but given pain would hold off diet at this time and monitor/likely liquid diet for breakfast in AM tomorrow pending course. Discussed reported history of afib vs atrial tachycardia -- she reports about four years ago with her shoulder repair surgery had to be stopped and eval by Dr Antoine for reported afib. One and only occurance. No palpitations/lightheadedness reported. Does have a murmur, and reports she has an appotinemnt with Dr Horn as her recently switched -- appointment for August scheduled. Will hold off on any echo at this time given admitted for other. Questions/concerns addressed at this time. Physical Exam Physical Exam: General: WD/WN elderly female getting back into bed from wheelchair, just got back from XRAY, NAD HEENT: head normocephalic, atraumatic, mmm, trachea midline, no deviation Resp: CTA, no w/c, on room air CV: irregularly irregular, ?murmur, trace LE edema, calves nontender GI+ BS throughout, soft, +distension, +tenderness (umbilical/LLQ region), no rigidity : no otero MSK/Neuro: no focal deficit Psych: AOx3, cooperative and pleasant Results & Data Results & Data Vital Signs (Past 12 Hours) Vital Signs Temp Pulse Resp BP Pulse Ox Pulse Ox O2 Del Method 08/01/22 07:38 36.8 C 66 16 98/50 L 97 Room Air 07/31/22 23:30 Room Air 07/31/22 23:30 Room Air 07/31/22 23:30 96 07/31/22 23:30 36.7 C 74 20 104/71 96 Room Air 07/31/22 22:43 76 18 105/61 93 Room Air 07/31/22 20:42 73 18 93/63 L 99 Room Air O2 Del Method 08/01/22 07:38 07/31/22 23:30 07/31/22 23:30 07/31/22 23:30 Room Air 07/31/22 23:30 07/31/22 22:43 07/31/22 20:42 Laboratory Results 08/01/22 08/01/22 08/01/22 Range/Units 08:27 08:27 06:43 WBC (4.8-10.8) K/ul RBC (4.20-5.40) M/uL Hgb (12.0-16.0) g/dl Hct (37.0-47.0) % MCV (80.0-100.0) fL MCH (25.0-34.0) pg MCHC (32.0-36.0) g/dL RDW Std Deviation (36.4-46.3) fL RDW Coeff of Rubina (11.5-14.5) % Plt Count (130-400) K/uL MPV (9.4-12.4) fL Immature Gran % (Auto) % Neut % (Auto) % Lymph % (Auto) % Weakley % (Auto) % Eos % (Auto) % Baso % (Auto) % Neut # (Auto) (1.40-6.50) K/uL Lymph # (Auto) (1.2-3.4) K/uL Weakley # (Auto) (0.11-0.59) K/uL Eos # (Auto) (0-0.50) K/uL Baso # (Auto) (0-0.2) K/uL Immature Gran # (Auto) (0.01-0.20) K/uL PT (9.0-12.0) Seconds INR (0.9-1.1) Sodium 140 (136-145) mmol/L Potassium 3.4 L (3.5-5.1) mmol/L Chloride 107 (98-107) mmol/L Carbon Dioxide 29 (21-32) mmol/L Anion Gap 4 (3-11) BUN 21 (6-23) mg/dl Creatinine 0.66 (0.6-1.2) mg/dl Est Cr Clr Drug Dosing 49.3 ml/min Est GFR ( Amer) 92.1 ml/min Est GFR (Non-Af Amer) 79.4 ml/min BUN/Creatinine Ratio 31.8 H (10-20) Glucose 81 (70-99(Fasting)) mg/dl Lactate (0.4-2.0) mmol/L Calcium 8.0 L (8.6-10.3) mg/dl Magnesium 1.3 L (1.7-2.4) mg/dl Total Bilirubin 0.5 (0.2-1.0) mg/dl AST 11 L (13-39) U/L ALT 13 (7-52) U/L Alkaline Phosphatase 49 (34-104) U/L Total Protein 4.0 L D (6.0-8.3) gm/dl Albumin 2.4 L (3.4-5.0) gm/dl Globulin 1.6 L (2.5-4.0) gm/dl Albumin/Globulin Ratio 1.5 (0.9-2) Lipase (11-82) U/L 25-OH Vitamin D Total Pending TSH 2.189 (0.300-4.500) uIu/ml Urine Color Urine Appearance (Clear) Urine pH (4.5-7.5) Ur Specific Morton (1.000-1.030) Urine Protein (Negative) Urine Glucose (UA) (Negative) Urine Ketones (Negative) Urine Blood (Negative) Urine Nitrite (Negative) Urine Bilirubin (Negative) Urine Urobilinogen (Negative) Ur Leukocyte Esterase (Negative) Urine WBC (Auto) (0-5) /hpf Urine RBC (Auto) (0-4) /hpf U Hyaline Cast (Auto) (0-5) /lpf U Epithel Cells (Auto) (0-5) /lpf Urine Bacteria (Auto) (Negative) SARS-CoV-2, RNA, NAAT (NEGATIVE) 08/01/22 08/01/22 08/01/22 Range/Units 06:43 06:43 06:43 WBC 5.15 (4.8-10.8) K/ul RBC 3.33 L (4.20-5.40) M/uL Hgb 9.4 L (12.0-16.0) g/dl Hct 28.3 L (37.0-47.0) % MCV 85.0 (80.0-100.0) fL MCH 28.2 (25.0-34.0) pg MCHC 33.2 (32.0-36.0) g/dL RDW Std Deviation 46.5 H (36.4-46.3) fL RDW Coeff of Rubina 15.1 H (11.5-14.5) % Plt Count 245 (130-400) K/uL MPV 9.0 L (9.4-12.4) fL Immature Gran % (Auto) 0.2 % Neut % (Auto) 67.8 % Lymph % (Auto) 24.1 % Weakley % (Auto) 5.8 % Eos % (Auto) 1.7 % Baso % (Auto) 0.4 % Neut # (Auto) 3.49 (1.40-6.50) K/uL Lymph # (Auto) 1.24 (1.2-3.4) K/uL Weakley # (Auto) 0.30 (0.11-0.59) K/uL Eos # (Auto) 0.09 (0-0.50) K/uL Baso # (Auto) 0.02 (0-0.2) K/uL Immature Gran # (Auto) 0.01 (0.01-0.20) K/uL PT 11.2 (9.0-12.0) Seconds INR 1.1 (0.9-1.1) Sodium (136-145) mmol/L Potassium (3.5-5.1) mmol/L Chloride (98-107) mmol/L Carbon Dioxide (21-32) mmol/L Anion Gap (3-11) BUN (6-23) mg/dl Creatinine (0.6-1.2) mg/dl Est Cr Clr Drug Dosing ml/min Est GFR ( Amer) ml/min Est GFR (Non-Af Amer) ml/min BUN/Creatinine Ratio (10-20) Glucose (70-99(Fasting)) mg/dl Lactate 0.4 (0.4-2.0) mmol/L Calcium (8.6-10.3) mg/dl Magnesium (1.7-2.4) mg/dl Total Bilirubin (0.2-1.0) mg/dl AST (13-39) U/L ALT (7-52) U/L Alkaline Phosphatase (34-104) U/L Total Protein (6.0-8.3) gm/dl Albumin (3.4-5.0) gm/dl Globulin (2.5-4.0) gm/dl Albumin/Globulin Ratio (0.9-2) Lipase (11-82) U/L 25-OH Vitamin D Total TSH (0.300-4.500) uIu/ml Urine Color Urine Appearance (Clear) Urine pH (4.5-7.5) Ur Specific Morton (1.000-1.030) Urine Protein (Negative) Urine Glucose (UA) (Negative) Urine Ketones (Negative) Urine Blood (Negative) Urine Nitrite (Negative) Urine Bilirubin (Negative) Urine Urobilinogen (Negative) Ur Leukocyte Esterase (Negative) Urine WBC (Auto) (0-5) /hpf Urine RBC (Auto) (0-4) /hpf U Hyaline Cast (Auto) (0-5) /lpf U Epithel Cells (Auto) (0-5) /lpf Urine Bacteria (Auto) (Negative) SARS-CoV-2, RNA, NAAT (NEGATIVE) 07/31/22 07/31/22 07/31/22 Range/Units 20:45 17:57 17:23 WBC (4.8-10.8) K/ul RBC (4.20-5.40) M/uL Hgb (12.0-16.0) g/dl Hct (37.0-47.0) % MCV (80.0-100.0) fL MCH (25.0-34.0) pg MCHC (32.0-36.0) g/dL RDW Std Deviation (36.4-46.3) fL RDW Coeff of Rubina (11.5-14.5) % Plt Count (130-400) K/uL MPV (9.4-12.4) fL Immature Gran % (Auto) % Neut % (Auto) % Lymph % (Auto) % Weakley % (Auto) % Eos % (Auto) % Baso % (Auto) % Neut # (Auto) (1.40-6.50) K/uL Lymph # (Auto) (1.2-3.4) K/uL Weakley # (Auto) (0.11-0.59) K/uL Eos # (Auto) (0-0.50) K/uL Baso # (Auto) (0-0.2) K/uL Immature Gran # (Auto) (0.01-0.20) K/uL PT (9.0-12.0) Seconds INR (0.9-1.1) Sodium (136-145) mmol/L Potassium (3.5-5.1) mmol/L Chloride (98-107) mmol/L Carbon Dioxide (21-32) mmol/L Anion Gap (3-11) BUN (6-23) mg/dl Creatinine (0.6-1.2) mg/dl Est Cr Clr Drug Dosing ml/min Est GFR ( Amer) ml/min Est GFR (Non-Af Amer) ml/min BUN/Creatinine Ratio (10-20) Glucose (70-99(Fasting)) mg/dl Lactate (0.4-2.0) mmol/L Calcium (8.6-10.3) mg/dl Magnesium 1.3 L (1.7-2.4) mg/dl Total Bilirubin (0.2-1.0) mg/dl AST (13-39) U/L ALT (7-52) U/L Alkaline Phosphatase (34-104) U/L Total Protein (6.0-8.3) gm/dl Albumin (3.4-5.0) gm/dl Globulin (2.5-4.0) gm/dl Albumin/Globulin Ratio (0.9-2) Lipase (11-82) U/L 25-OH Vitamin D Total TSH (0.300-4.500) uIu/ml Urine Color Yellow Urine Appearance Clear (Clear) Urine pH 6.0 (4.5-7.5) Ur Specific Morton 1.018 (1.000-1.030) Urine Protein Negative (Negative) Urine Glucose (UA) Negative (Negative) Urine Ketones Negative (Negative) Urine Blood Negative (Negative) Urine Nitrite Negative (Negative) Urine Bilirubin Negative (Negative) Urine Urobilinogen Negative (Negative) Ur Leukocyte Esterase 2+ H (Negative) Urine WBC (Auto) 1-5 (0-5) /hpf Urine RBC (Auto) 0-4 (0-4) /hpf U Hyaline Cast (Auto) 0 (0-5) /lpf U Epithel Cells (Auto) 10-20 H (0-5) /lpf Urine Bacteria (Auto) Negative (Negative) SARS-CoV-2, RNA, NAAT NEGATIVE (NEGATIVE) 07/31/22 07/31/22 Range/Units 17:23 17:23 WBC 11.01 H (4.8-10.8) K/ul RBC 4.29 (4.20-5.40) M/uL Hgb 12.0 (12.0-16.0) g/dl Hct 36.5 L (37.0-47.0) % MCV 85.1 (80.0-100.0) fL MCH 28.0 (25.0-34.0) pg MCHC 32.9 (32.0-36.0) g/dL RDW Std Deviation 46.4 H (36.4-46.3) fL RDW Coeff of Rubina 15.0 H (11.5-14.5) % Plt Count 405 H (130-400) K/uL MPV 9.3 L (9.4-12.4) fL Immature Gran % (Auto) 0.4 % Neut % (Auto) 80.2 % Lymph % (Auto) 15.2 % Weakley % (Auto) 3.6 % Eos % (Auto) 0.4 % Baso % (Auto) 0.2 % Neut # (Auto) 8.84 H (1.40-6.50) K/uL Lymph # (Auto) 1.67 (1.2-3.4) K/uL Weakley # (Auto) 0.40 (0.11-0.59) K/uL Eos # (Auto) 0.04 (0-0.50) K/uL Baso # (Auto) 0.02 (0-0.2) K/uL Immature Gran # (Auto) 0.04 (0.01-0.20) K/uL PT (9.0-12.0) Seconds INR (0.9-1.1) Sodium 140 (136-145) mmol/L Potassium 3.8 (3.5-5.1) mmol/L Chloride 102 (98-107) mmol/L Carbon Dioxide 31 (21-32) mmol/L Anion Gap 7 (3-11) BUN 30 H (6-23) mg/dl Creatinine 0.93 (0.6-1.2) mg/dl Est Cr Clr Drug Dosing 35.2 ml/min Est GFR ( Amer) 64.0 ml/min Est GFR (Non-Af Amer) 55.3 ml/min BUN/Creatinine Ratio 32.3 H (10-20) Glucose 98 (70-99(Fasting)) mg/dl Lactate (0.4-2.0) mmol/L Calcium 9.4 (8.6-10.3) mg/dl Magnesium (1.7-2.4) mg/dl Total Bilirubin 0.6 (0.2-1.0) mg/dl AST 17 (13-39) U/L ALT 20 (7-52) U/L Alkaline Phosphatase 69 (34-104) U/L Total Protein 5.6 L (6.0-8.3) gm/dl Albumin 3.3 L (3.4-5.0) gm/dl Globulin 2.3 L (2.5-4.0) gm/dl Albumin/Globulin Ratio 1.4 (0.9-2) Lipase 5 L (11-82) U/L 25-OH Vitamin D Total TSH (0.300-4.500) uIu/ml Urine Color Urine Appearance (Clear) Urine pH (4.5-7.5) Ur Specific Morton (1.000-1.030) Urine Protein (Negative) Urine Glucose (UA) (Negative) Urine Ketones (Negative) Urine Blood (Negative) Urine Nitrite (Negative) Urine Bilirubin (Negative) Urine Urobilinogen (Negative) Ur Leukocyte Esterase (Negative) Urine WBC (Auto) (0-5) /hpf Urine RBC (Auto) (0-4) /hpf U Hyaline Cast (Auto) (0-5) /lpf U Epithel Cells (Auto) (0-5) /lpf Urine Bacteria (Auto) (Negative) SARS-CoV-2, RNA, NAAT (NEGATIVE) Diagnostic Findings Chest X-Ray 07/31/22 16:48 XR chest 1V portable CLINICAL HISTORY: a-fib TECHNIQUE: Single frontal radiograph of the chest was obtained. Comparison: Comparison is made to chest radiograph 02/19/2022 FINDINGS: Bilateral shoulder arthroplasties are seen. Cardiomegaly is noted. The aortic arch is calcified. The lungs are clear. No evidence of pleural effusion or pneumothorax. A moderate hiatal hernia is seen. IMPRESSION: No acute abnormality is seen, in particular no evidence of pulmonary edema. ACT 112: Negative or not required by law. Electronically signed by: Aric Winn M.D. 07/31/2022 5:49 PM Abdomen/Pelvis CT 07/31/22 17:23 Exam(s): CT ABDOMEN + PELVIS With Contrast IV Amt: 84ml Optiray 350 EXAM: CT Abdomen and Pelvis With Intravenous Contrast CLINICAL HISTORY: abd pain ? sbo. TECHNIQUE: Axial computed tomography images of the abdomen and pelvis with intravenous contrast. CTDI is 9.21 mGy and DLP is 429.19 mGy-cm. Automated exposure control was utilized for the study. A dose lowering technique was utilized adhering to the principles of ALARA. CONTRAST: Patient received 84ml Optiray 350 of IV contrast COMPARISON: CT abdomen and pelvis with contrast 02/27/2022 FINDINGS: Limitations: There is respiratory artifact, which degrades image quality on multiple image slices. Lung bases: Unremarkable. No mass. No consolidation. Mediastinum: Similar hiatal hernia containing the majority of the body of the stomach in the posterior mediastinum. ABDOMEN: Liver: Unremarkable. No mass. Gallbladder and bile ducts: Unremarkable. No calcified stones. No ductal dilation. Pancreas: Unremarkable. No mass. No ductal dilation. Spleen: Unremarkable. No splenomegaly. Adrenals: Unremarkable. No mass. Kidneys and ureters: Kidneys are stable in appearance without hydronephrosis or obstructing nephrolithiasis. The previously noted dominant cyst involving the anterior aspect of the left kidney is now at significantly altered in size, measuring 4 cm in diameter. Stomach and bowel: Nonspecific fluid and gas dilation of the entire bowel similar in appearance to the previous examination, accounting for difference in oral contrast demonstration technique. No solitary transition point identified. Scattered diverticulosis involving the sigmoid colon. PELVIS: Appendix: No findings to suggest acute appendicitis. Bladder: Unremarkable. No mass. Reproductive: Unremarkable as visualized. ABDOMEN and PELVIS: Intraperitoneal space: Unremarkable. No free air. No significant fluid collection. Bones/joints: Similar grade 1 anterolisthesis of L5 on S1. Similar multilevel degenerative changes noted. No acute fracture. No dislocation. Soft tissues: Unremarkable. Vasculature: Unremarkable. No abdominal aortic aneurysm. Lymph nodes: Unremarkable. No enlarged lymph nodes. IMPRESSION: 1. Nonspecific fluid and gas dilation of the entire bowel similar in appearance to the previous examination, accounting for difference in oral contrast demonstration technique. No solitary transition point identified. Differential consideration includes enteritis or subtle small bowel obstruction. No free intraperitoneal fluid or definite pneumoperitoneum. 2. Similar hiatal hernia containing the majority of the body of the stomach in the posterior mediastinum. Electronically signed by: Jairon Milligan MD 07/31/22 20:08 PM PG Care Time/CCT Total # of Minutes Spent Total Time Spent with Patient: Total time spent is greater than 50% in coordination of care (as documented) at patient's floor/unit and/or counseling patient: Coding Level of Care Code 68100 SUB INP/OBS CARE 3/50MIN Diagnoses Small bowel obstruction K56.609 Atrial fibrillation I48.91 Heart failure with preserved ejection fraction I50.30 Hypomagnesemia E83.42
--- NOTE | 2022-08-01 08:28 | Surgery Progress Note ---
Date of Service August 01, 2022 Assessment & Plan (1) Small bowel obstruction: Plan: Patient here with concern for SBO She is feeling improvement in symptoms. pain better. no nausea/vomiting. passing some flatus abdomen softly distended with mild discomfort to palpation in mid abdomen and llq regions KUB ordered for today will follow up results, but for now continue NPO/ice, IVF no need for NGT or surgical intervention at this time Admission and Anticipated Discharge Date Admission Date: July 31, 2022 Supervising Physician Co-Signing Physician Notes Patient seen examined, agree with above. Admitted with enteritis versus partial SBO. She is passing flatus and her abdomen is feeling much better. We will try clear liquids and advance diet as tolerated. Surgery will continue to follow, call with questions or concerns Subjective Patient reports feeling better than yesterday. Still with some abdominal discomfort, but improved. No nausea/vomiting. Passing some flatus. Last BM yesterday AM. Physical Exam Physical Exam: awake/alert, no distress Respiratory: normal respiratory effort Gastrointestinal (Abdomen): Inspection/Auscultation: + abdomen distended (mild) Percussion/Palpation: + abdomen tender (some discomfort to palpation around the umbilical region and llq) and abdomen soft Results & Data Vital Signs (Past 12 Hours) Vital Signs Temp Pulse Resp BP Pulse Ox Pulse Ox O2 Del Method 08/01/22 08:20 106/69 08/01/22 07:38 36.8 C 66 16 98/50 L 97 Room Air 07/31/22 23:30 Room Air 07/31/22 23:30 Room Air 07/31/22 23:30 96 07/31/22 23:30 36.7 C 74 20 104/71 96 Room Air 07/31/22 22:43 76 18 105/61 93 Room Air 07/31/22 20:42 73 18 93/63 L 99 Room Air O2 Del Method 08/01/22 08:20 08/01/22 07:38 07/31/22 23:30 07/31/22 23:30 07/31/22 23:30 Room Air 07/31/22 23:30 07/31/22 22:43 07/31/22 20:42 PG Care Time/CCT Total # of Minutes Spent Total Time Spent with Patient: Total time spent is greater than 50% in coordination of care (as documented) at patient's floor/unit and/or counseling patient: Coding Level of Care Code 39611 SUB INP/OBS CARE 05/08MIN Diagnoses Small bowel obstruction K56.609
[2022-08-01] MEDS: PANTOprazole 40 MG in SYRINGE 0 ML IV SCH ×2 (08:30→20:33)
[2022-08-01] MEDS: MAGNESIUM SULFATE / D5W 1 GM/100 ML BAG IV SCH ×3 (08:30→13:02)
[2022-08-01] MEDS: POTASSIUM CHLORIDE 20 MEQ in LACTATED RINGER'S 1,000 ML IV SCH ×2 (09:14→21:37)
[2022-08-01] MEDS: METOPROLOL SUCC 25MG EXT REL TAB PO SCH (09:20)
--- NOTE | 2022-08-01 10:14 | Electrocardiogram Report ---
Test Reason : Blood Pressure : / mmHG Vent. Rate : 087 BPM Atrial Rate : 087 BPM P-R Int : 154 ms QRS Dur : 072 ms QT Int : 372 ms P-R-T Axes : 072 -45 044 degrees QTc Int : 447 ms Poor data quality, interpretation may be adversely affected Normal sinus rhythm Left axis deviation Voltage criteria for left ventricular hypertrophy Poor R wave progression, consider anterior DE vs. lead placement vs. LVH Abnormal ECG When compared with ECG of 25-FEB-2022 15:45, Premature atrial complexes are no longer Present QRS axis Shifted left Borderline criteria for Lateral infarct are now Present Confirmed by Petr Inman ([id number]) on 08/01/2022 10:14:19 AM Referred By: Reji Vital Confirmed By:Eusebio Inman
--- NOTE | 2022-08-01 10:17 | Electrocardiogram Report ---
Test Reason : Blood Pressure : / mmHG Vent. Rate : 073 BPM Atrial Rate : 073 BPM P-R Int : 162 ms QRS Dur : 080 ms QT Int : 412 ms P-R-T Axes : 071 -02 027 degrees QTc Int : 453 ms Poor data quality, interpretation may be adversely affected Normal sinus rhythm Poor R wave progression, consider anterior MS vs. lead placement vs. LVH Abnormal ECG When compared with ECG of 31-JUL-2022 17:17, (unconfirmed) ST now depressed in Inferior leads Confirmed by Petr Inman ([id number]) on 08/01/2022 10:16:47 AM Referred By: Reji Vital Confirmed By:Eusebio Inman
--- NOTE | 2022-08-01 10:52 | XRay Report ---
KUB CLINICAL HISTORY: Generalized abdominal pain. FINDINGS: 2 AP, portable, supine abdominal radiographs are correlated with abdominal CT dated 08/01/19 23. There are ihlc-zy-[id number] distended and gas-filled loops of small bowel with no radiographic jaycee dence of high-grade obstruction. No evidence of intraperitoneal free air is seen on these supine imag es. Excreted IV contrast is seen within the renal collecting systems and bladder. There is atheroscle rotic calcification of the abdominal aorta. Calcified fibroids are noted in the pelvis. The skeletal structures are osteopenic and appear intact. There is moderate to advanced spondylosis. IMPRESSION: 1. Onsz-lh-fslwhrfp gaseous distention of the small bowel loops is unchanged. 2. There is no radiographic evidence of high-grade obstruction. These findings could represent a nons pecific enteritis or ileus. A partial small bowel obstruction could appear similar and clinical corre lation will be essential. 3. Excreted IV contrast is seen within the renal collecting systems and bladder. Electronically signed by: Bridger Gibbs M.D. 08/01/2022 10:49 AM
[2022-08-01 13:26] LABS: Troponin I High Sensitivity 40.8 pg/ml (0-14)
--- NOTE | 2022-08-01 13:29 | XCELERA ---
[id number]
--- NOTE | 2022-08-01 13:51 | Communication Note ---
Date of Service: August 01, 2022 Trop obtained w/ AM labs as not drawn on admit w/ GI symptoms. Trop w/ high sens at 40. Will trend but suspect demand from SBO/illness. No CP/SOB reported Will check EKG again, prior w/o evidence for afib but as stated, hx of heather- operative afib w/ her shoulder surgery. Did obtain ECHO earlier today -- LV systolic function is normal. no wma noted but does noted moderate cLVH. LA severely dilated, RA moderately dilated. Mild valvular aortic stenosis. Mild-moderate mitral annular calcification. RVSP elevated at 30-40mmHg. TSH wnl 2.189 Will monitor for evidence of volume overload General surgery saw patient/advanced diet to clear liquid. If any CP/SOB/palpitations, would move to monitored bed but given stability will hold off.
[2022-08-01] MEDS: ACETAMINOPHEN 325 MG TAB PO PRN ×2 (14:19→20:32)
[2022-08-01 23:06] LABS: Adenovirus F 40/41 PCR Not Detected (NotDetected); Astrovirus PCR Not Detected (NotDetected); Campylobacter PCR Not Detected (NotDetected); Cryptosporidium PCR Not Detected (NotDetected); Cyclospora cayetanensis PCR Not Detected (NotDetected); Entamoeba histolytica PCR Not Detected (NotDetected); Enteroaggregative E.coli(EAEC) Not Detected (NotDetected); Enteropathogenic E.coli (EPEC) Not Detected (NotDetected); Enterotoxigenic E.coli (ETEC) Not Detected (NotDetected); Giardia lamblia PCR Not Detected (NotDetected); Plesiomonas shigelloides PCR Not Detected (NotDetected); Rotavirus A PCR Not Detected (NotDetected); Salmonella PCR Not Detected (NotDetected); Sapovirus PCR Not Detected (NotDetected); Shiga-like Toxin E.coli (STEC) Not Detected (NotDetected); Shigella/Enteroinvasive E.coli Not Detected (NotDetected); Vibrio cholerae PCR Not Detected (NotDetected); Vibrio species PCR Not Detected (NotDetected); Yersinia enterocolitica PCR Not Detected (NotDetected)
[2022-08-01 23:40] LABS: Norovirus GI/GII PCR DETECTED (NotDetected)
[2022-08-02] MEDS: ENOXAPARIN INJ 40 MG/0.4 ML SYR SQ SCH (05:45)
[2022-08-02 06:36] LABS: Basophils # (auto) 0.04 K/uL (0-0.2); Basophils % (auto) 0.6 %; Eosinophils # (auto) 0.13 K/uL (0-0.50); Eosinophils % (auto) 1.9 %; Hematocrit (blood only) 32.7 % (37.0-47.0); Hemoglobin 10.6 g/dl (12.0-16.0); Immature Granulocytes # (auto) 0.02 K/uL (0.01-0.20); Immature Granulocytes % (auto) 0.3 %; Lymphocytes # (auto) 1.31 K/uL (1.2-3.4); Lymphocytes % (auto) 18.8 %; Mean Corpuscular Hemoglobin 28.6 pg (25.0-34.0); Mean Corpuscular Hgb Conc 32.4 g/dL (32.0-36.0); Mean Corpuscular Volume 88.1 fL (80.0-100.0); Mean Platelet Volume 9.9 fL (9.4-12.4); Monocytes # (auto) 0.45 K/uL (0.11-0.59); Monocytes % (auto) 6.5 %; Neutrophils % (auto) 71.9 %; Platelet Count 233 K/uL (130-400); RDW Standard Deviation 47.9 fL (36.4-46.3); Red Blood Count 3.71 M/uL (4.20-5.40); White Blood Count 6.95 K/ul (4.8-10.8)
[2022-08-02 06:57] LABS: Albumin Globulin Ratio 1.4 (0.9-2); Albumin Level 2.7 gm/dl (3.4-5.0); BUN Creatinine Ratio 22.8 (10-20); Bilirubin,Total 0.5 mg/dl (0.2-1.0); Calcium 8.1 mg/dl (8.6-10.3); Creatinine Clr Calc Pharmacy 57.1 ml/min; Est GFR (African American) 96.6 ml/min; Est GFR (Non-African American) 83.4 ml/min; Globulin 1.9 gm/dl (2.5-4.0); Magnesium 1.9 mg/dl (1.7-2.4); Total Protein 4.6 gm/dl (6.0-8.3)
[2022-08-02] MEDS: METOPROLOL SUCC 25MG EXT REL TAB PO SCH (07:48)
--- NOTE | 2022-08-02 07:53 | Surgery Progress Note ---
Date of Service August 02, 2022 Assessment & Plan (1) Norovirus: Plan: Patient here with concern for partial SBO vs. enteritis....stool cultures yesterday returned + for norovirus which is likely the cause of her initial symptoms She states she feels much better than admission. Denies nausea/vomiting. Pain improved. Passing flatus and BMs (normal, not diarrhea) She is tolerating clear liquids, will continue to advance diet as she tolerates No acute indications for surgical intervention [facility] covering the weekend if questions/concerns Admission and Anticipated Discharge Date Admission Date: July 31, 2022 Supervising Physician Co-Signing Physician Notes Dr. Diamondpatient positive for norovirus-most likely causing her symptoms She would like to go home and I think from a surgical standpoint she can Return to hospital/ER as needed Subjective Patient reports feeling better. Her pain is much improved compared to when she came in. Passing flatus and had a normal BM both yesterday and today. Physical Exam Physical Exam: awake/alert, no distress Respiratory: normal respiratory effort Gastrointestinal (Abdomen): Inspection/Auscultation: + abdomen distended (mild) Percussion/Palpation: abdomen soft; abdomen nontender Results & Data Vital Signs (Past 12 Hours) Vital Signs Temp Pulse Resp BP Pulse Ox O2 Del Method O2 Del Method 08/02/22 07:35 36.5 C 75 18 144/81 H 96 Room Air 08/02/22 03:00 Room Air 08/01/22 20:35 37.1 C 88 16 124/84 95 Room Air PG Care Time/CCT Total # of Minutes Spent Total Time Spent with Patient: Total time spent is greater than 50% in coordination of care (as documented) at patient's floor/unit and/or counseling patient: Coding Level of Care Code 67211 SUB INP/OBS CARE 05/08MIN Diagnoses Norovirus A08.11
[2022-08-02] MEDS: PANTOprazole 40 MG in SYRINGE 0 ML IV SCH (07:55)
--- NOTE | 2022-08-02 08:16 | Hospitalist Progress Note ---
Date of Service August 02, 2022 Assessment & Plan Admission and Anticipated Discharge Date Admission Date: July 31, 2022 Results & Data Results & Data Vital Signs (Past 12 Hours) Vital Signs Temp Pulse Resp BP Pulse Ox O2 Del Method O2 Del Method 08/02/22 07:35 36.5 C 75 18 144/81 H 96 Room Air 08/02/22 03:00 Room Air 08/01/22 20:35 37.1 C 88 16 124/84 95 Room Air PG Care Time/CCT Total # of Minutes Spent Total Time Spent with Patient: Total time spent is greater than 50% in coordination of care (as documented) at patient's floor/unit and/or counseling patient: Coding Diagnoses
[2022-08-02] MEDS ORDERED: IRON SUCROSE 300 MG in SODIUM CHLORIDE 0.9% 250 ML IV ONE (09:00)
[2022-08-02] MEDS ORDERED: FUROSEMIDE 40 MG TAB PO SCH (09:00)
--- NOTE | 2022-08-02 09:26 | Discharge Summary ---
Date of Service August 02, 2022 Admission HPI Per Admitting Provider Lori Clemons is a pleasant 86yo female with history of prior SBO in February 2022, AF, VT, GERD presenting with two weeks of loose stools and one day of lower abdominal pain. Pain is lower abdomen, bandlike, worse with coughing and deep breathing. She was seen by her PCP today and sent to the ER for further workup. Patient found to be in atrial fibrillation. Was in atrial fib in the past postoperatively. She also notes increased LE edema. 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 Patient is passing gas. Last BM this morning. Denies fever, chills, chest pain, cough, SOB. NO additional complaints Admission Exam Per Admitting Provider General: patient resting comfortably, NAD, non-toxic in appearance, AA&O x 4 Skin: warm, dry, intact, no rashes or lesions HEENT: NC/AT, PERRL, EOMI, anicteric sclera, conjunctiva without injection, external ear normal to inspection and nontender, nares patent, moist mucus membranes, dentition intact, no oropharyngeal lesions, neck supple, trachea midline, no LAD, no thyromegaly, no JVD Heart: +S1/S2, irregularly irregular, no m/r/g Lungs: equal air entry bilaterally, no rales/rhonchi/wheezes Abd: +BS, soft,tender int he lower abdomen with some voluntary guarding, no masses/organomegaly/ascites Ext: warm, 2+ pulses in UE/LE bilaterally, no clubbing/cyanosis, 2+ edema of bilateral LE Neuro: nonfocal, patient AA&O x 4, speech intact, no facial droop, moving all extremities on command with equal strength 5/5 Principal Diagnosis SBO, Enteritis, Norovirus Discharge Exam General: WD/WN elderly female sitting up in bed eating breakfast, NAD HEENT: head normocephalic, atraumatic, mmm, trachea midline, no deviation Resp: CTA, no w/c, on room air CV: regular rate/rhythm, +systolic murmur, trace LE edema, calves nontender GI+ BS throughout, soft, nontender : no otero MSK/Neuro: no focal deficit Psych: AOx3, cooperative and pleasant Discharge Data Allergies Allergy/AdvReac Type Severity Reaction Status Date / Time acetaminophen [From Percocet] Allergy Mild itching Verified 07/31/22 15:09 oxycodone [From Percocet] Allergy Mild itching Verified 07/31/22 15:09 Penicillins Allergy Mild Rash Verified 07/31/22 15:09 aspirin AdvReac Unknown unknown Verified 07/31/22 15:09 reaction- ? related to ulcer hx celecoxib AdvReac Unknown ulcer hx Verified 07/31/22 15:09 NSAIDS (Non-Steroidal AdvReac Unknown unknown Verified 07/31/22 15:09 Anti-Inflamma reaction- ? related to ulcer hx Consultations 07/31/22 20:43 ED Decision to Admit Stat 07/31/22 20:47 Consult General Surgery Routine Ordered Studies Chest X-Ray 07/31/22 16:48 XR chest 1V portable CLINICAL HISTORY: a-fib TECHNIQUE: Single frontal radiograph of the chest was obtained. Comparison: Comparison is made to chest radiograph 02/19/2022 FINDINGS: Bilateral shoulder arthroplasties are seen. Cardiomegaly is noted. The aortic arch is calcified. The lungs are clear. No evidence of pleural effusion or pneumothorax. A moderate hiatal hernia is seen. IMPRESSION: No acute abnormality is seen, in particular no evidence of pulmonary edema. ACT 112: Negative or not required by law. Electronically signed by: Aric Winn M.D. 07/31/2022 5:49 PM Abdomen/Pelvis CT 07/31/22 17:23 Exam(s): CT ABDOMEN + PELVIS With Contrast IV Amt: 84ml Optiray 350 EXAM: CT Abdomen and Pelvis With Intravenous Contrast CLINICAL HISTORY: abd pain ? sbo. TECHNIQUE: Axial computed tomography images of the abdomen and pelvis with intravenous contrast. CTDI is 9.21 mGy and DLP is 429.19 mGy-cm. Automated exposure control was utilized for the study. A dose lowering technique was utilized adhering to the principles of ALARA. CONTRAST: Patient received 84ml Optiray 350 of IV contrast COMPARISON: CT abdomen and pelvis with contrast 02/27/2022 FINDINGS: Limitations: There is respiratory artifact, which degrades image quality on multiple image slices. Lung bases: Unremarkable. No mass. No consolidation. Mediastinum: Similar hiatal hernia containing the majority of the body of the stomach in the posterior mediastinum. ABDOMEN: Liver: Unremarkable. No mass. Gallbladder and bile ducts: Unremarkable. No calcified stones. No ductal dilation. Pancreas: Unremarkable. No mass. No ductal dilation. Spleen: Unremarkable. No splenomegaly. Adrenals: Unremarkable. No mass. Kidneys and ureters: Kidneys are stable in appearance without hydronephrosis or obstructing nephrolithiasis. The previously noted dominant cyst involving the anterior aspect of the left kidney is now at significantly altered in size, measuring 4 cm in diameter. Stomach and bowel: Nonspecific fluid and gas dilation of the entire bowel similar in appearance to the previous examination, accounting for difference in oral contrast demonstration technique. No solitary transition point identified. Scattered diverticulosis involving the sigmoid colon. PELVIS: Appendix: No findings to suggest acute appendicitis. Bladder: Unremarkable. No mass. Reproductive: Unremarkable as visualized. ABDOMEN and PELVIS: Intraperitoneal space: Unremarkable. No free air. No significant fluid collection. Bones/joints: Similar grade 1 anterolisthesis of L5 on S1. Similar multilevel degenerative changes noted. No acute fracture. No dislocation. Soft tissues: Unremarkable. Vasculature: Unremarkable. No abdominal aortic aneurysm. Lymph nodes: Unremarkable. No enlarged lymph nodes. IMPRESSION: 1. Nonspecific fluid and gas dilation of the entire bowel similar in appearance to the previous examination, accounting for difference in oral contrast demonstration technique. No solitary transition point identified. Differential consideration includes enteritis or subtle small bowel obstruction. No free intraperitoneal fluid or definite pneumoperitoneum. 2. Similar hiatal hernia containing the majority of the body of the stomach in the posterior mediastinum. Electronically signed by: Jairon Milligan MD 07/31/22 20:08 PM KUB X-Ray 08/01/22 06:00 KUB CLINICAL HISTORY: Generalized abdominal pain. FINDINGS: 2 AP, portable, supine abdominal radiographs are correlated with abdominal CT dated 07/31/2022. There are [id number] distended and gas- filled loops of small bowel with no radiographic evidence of high-grade obstruction. No evidence of intraperitoneal free air is seen on these supine images. Excreted IV contrast is seen within the renal collecting systems and bladder. There is atherosclerotic calcification of the abdominal aorta. Calcified fibroids are noted in the pelvis. The skeletal structures are osteopenic and appear intact. There is moderate to advanced spondylosis. IMPRESSION: 1. Nbgf-[id number]-fymkfhcn gaseous distention of the small bowel loops is unchanged. 2. There is no radiographic evidence of high-grade obstruction. These findings could represent a nonspecific enteritis or ileus. A partial small bowel obstruction could appear similar and clinical correlation will be essential. 3. Excreted IV contrast is seen within the renal collecting systems and bladder. Electronically signed by: Bridger Gibbs M.D. 08/01/2022 10:49 AM Hospital Course (1) Norovirus: 86yo female with PMHx significant for HFpEF, GERD, hernia repair, SBO in February 2022 --> presenting with lower abdominal pain and two weeks of loose stools CTAP w/ nonspecific fluid/gas dilation entire bowel. no solitary transition point. DDx includes enteritis or subtle SBO. No free air/pneumo Lactic 0.4 Surgery consulted Patient did have some abdominal pain but no vomiting. Supportive care/NPO/IVF/electrolyte replacement --> Mag 1.3, IV replacement and normalized on repeat. WBC normalized on repeat, afebrile PPI IV daily given moderate hiatal hernia on CXR (on omeprazole at home) +BMs -- stool studies +norovirus --> this likely explains her GI symptoms on admission. Also checked iron studies as on daily supp -- low iron 18/trans % sat 8. given dose venofer prior to d/c. can resume her oral iron at d/c (instructed to take w/ bowel regimen if issues w/ constipation given prior SBO in last winter) Advancement of diet without issue and per surgery felt stable to dc on low fiber diet and advance as tolerated (2) Small bowel obstruction: suspected on admit, however more likely viral illness w/ + norovirus testing as above moving her bowels, no pain on exam -- diet advanced and tolerated as above (3) Atrial fibrillation: per prior record was initially worked up for afib during shoulder surgery several years ago and felt was not afib and was atrial tachycardia and AC was NOT recommended In NORMAL SINUS RHYTHM on exam Rates controlled w/ metoprolol -- continued EKG repeated for eval (no symptoms of such) --> NSR Trop elevation minimal, no CP/SOb reported and suspect demand from above and decreased on repeat. EKG w/o changes on repeat ECHO w/ LV systolic function normal. Moderate cLVH. LA severely dilated. RA moderately dilated. Mild valvular aortic stenosis. Mild-mod mitral annular calcification. RVSP elevated at 30-40mmHg Continue metoprolol 25mg po qAM, lasix resumed 08/02. Mag replacement, normal on repeat. TSH wnl She has f/u with Dr Horn in the upcoming month --> can consider holter but patient w/o symptoms of such given low mag/elevated atria, she could have parosyxmal afib? (4) Heart failure with preserved ejection fraction: prior reported history but doesn't follow cardiology, YET --> has appt Dr Horn next month Prior afib felt to be atrial tachycardia as above, was not rec'd to be on anticoagulation at that time Remains on metoprolol, lasix resumed as above F/u Dr Dobbs as arranged for next month. Did have some LE edema, but dc IVF this morning and resumed her usual lasix. Denied SOB at present. To call sooner if she experiences any increased LE edema or symptoms of CP/SOB/GARG (5) Hypomagnesemia: chemistry reviewed -> mag 1.3, K 3.4 likley 2nd to diarrheal loses/possible diuretic therapy which were repleted repeat labs normalized Plan DVT prophylaxis w/ Lovenox 40 while inpatient Total Time Total Time Spent Total Time Spent (In Minutes): 40 Discharge Plan Discharge Items Patient Disposition: Home - Self-Care Reason For Visit: ABD PAIN, DIARRHEA Discharge Diagnosis: Small Bowel Obstruction, Norovirus Goals: You have been hospitalized for an acute medical problem. During your stay at [facility], we have made an effort to correct the problem that brought you to the hospital while keeping you as comfortable as possible. Medications were used to bring your condition under control and your discharge instructions will include directions for any medications you should take after leaving the hospital. Please make sure you see your Primary Care Provider as part of your follow up plan. Activity: As commented below Non-emergency contact: Primary Care Provider and Ndt Inspector Call non-emergency contact if: you have any medication questions, your pain is not controlled and you have a fever Follow-up/Referrals: Merrick Horn MD [Physician] - 08/15/22 3:30 pm Reji Vital DO [Primary Care Provider] - 08/05/22 9:30 am Diet: Heart Healthy and Low Fiber Addtl Attending Provider Instructions: You have been hospitalized for a small bowel obstruction. You were treated conservatively and repeat imaging had possible enteritis (viral suspected) and then stool testing which was positive for norovirus. Your labs improved on repeat and your diet was advanced. Continue low fiber for 2 weeks then advance as tolerated. Follow up with primary care to see if any referral to GI for endoscopy given second occurrence, however you did have a viral illness as well. We replaced iron for low levels and you should continue oral supplementation. Please note oral iron can cause constipation and you should be on a bowel regimen with miralax or over the counter softeners if you notice you are not moving your bowels on a regular basis. We did an ultrasound of the heart which showed some narrowing of your aortic valve and you should continue follow up with Dr Horn as already arranged previously. If you have any symptoms of chest pain, shortness of breath with exertion, or syncope, you should call the office sooner. We did EKG which did not show any atrial fibrillation given your prior episode with shoulder surgery but you should likely be on a daily baby aspirin for prevention. Please follow up with PCP and cardiology. Please return to the ER with any fevers, worsening abdominal pain, inability to keep up with oral hydration or for any other symptoms concerning for you. Please follow up with primary care in the next 7-10 days to monitor your progress after discharge. It has been a pleasure being a part of the medical team providing for you while you have been in the hospital. Take care! Pending Studies at Discharge: No Stand-Alone Forms: [facility], Smoking Cessation Medications and DC Order Prescriptions: Continued omeprazole 40 mg capsule,delayed release(DR/EC) 40 mg PO BID Qty: 180 3RF acetaminophen 500 mg capsule 500 mg PO BID Zioptan (PF) 0.0015 % dropperette 1 drp ophthalmic (eye) HS relief factor 4 tab PO BID metoprolol succinate 25 mg tablet extended release 24 hr 25 mg PO QAM Qty: 90 3RF ferrous sulfate [iron] 325 mg (65 mg iron) Tablet 65 mg PO QAM cholecalciferol (vitamin D3) [Vitamin D3] 50 mcg (2,000 unit) Capsule 50 mcg PO QAM Centrum Silver 0.4-300-250 mg-mcg-mcg Tablet 1 tab PO QAM PreserVision AREDS-2 [id number] rq-[id number]-[id number]-mg Capsule 1 tab PO BID calcium carbonate-vitamin D3 [Calcium 500 + D] 500 mg(1,250mg) -200 unit tablet 1 tab PO BID Prolia 60 mg/mL syringe 60 mg subcut Q6MO furosemide 40 mg tablet 40 mg PO QAM Discharge Orders: Discharge Order (Routine); Ordered 08/02/22 Ordered By: Estefania Foster/Other Patient Handouts: Low-Fiber Diet, Understanding Norovirus Admission Data Admit Date/Time: 07/31/22 20:41 Attending Provider: Marcell Villatoro Admit Provider: Eleanor Ace Primary Care Provider: Reji Vital Other Providers: Eleanor Ace ; Perry Correa Other Interventions: Discharge Summary Assessment (RN) Last Done: 08/02/22 13:37 Supervising Physician Co-Signing Physician Notes The patient was seen by me. The chart was reviewed. Case discussed with TAMERA Benoit. Agree with assessment and plan. She will be discharged home today, August 02 Coding Level of Care Code 29980 INP/OBS DISCH >30 MIN Diagnoses Norovirus A08.11 Small bowel obstruction K56.609 Atrial fibrillation I48.91 Heart failure with preserved ejection fraction I50.30 Hypomagnesemia E83.42
--- NOTE | 2022-08-02 17:58 | Electrocardiogram Report ---
Test Reason : Blood Pressure : / mmHG Vent. Rate : 083 BPM Atrial Rate : 083 BPM P-R Int : 162 ms QRS Dur : 082 ms QT Int : 392 ms P-R-T Axes : 101 -12 026 degrees QTc Int : 460 ms Normal sinus rhythm When compared with ECG of 31-JUL-2022 21:54, No significant change was found Confirmed by Petr Inman ([id number]) on 08/02/2022 5:58:09 PM Referred By: Reji Vital Confirmed By:Eusebio Inman
== END 2022-08-02 15:39 | disposition home or self-care (01) | DRG 389 ==
LOC: ED 16:30 → 3E 20:41 → SUATTDRO 20:41 → 3E 23:23